=== PATIENT | male | born 1980 | race Caucasian/White ===

== ENCOUNTER 2022-03-26 14:59 | Emergency (ER) | payer SELFPAY ==
--- OUTSIDE RECORDS SUMMARY | 2022-03-26 15:05 | XMS REPORT | Continuity of Care Document ---
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 Description Test Time Test Comments Results Result Comments Source COMP. METABOLIC PANEL (09027) 2021-08-30 19:39:09 Test Item Value Reference Range Interpretation Comme nts NA (test code = 5813117587) 140 mmol/L 135-145 K (test code = 7439305455) 4.5 mmol/L 3.5-5.0 CL (test code = 5381183398) 101 mmol/L 98-108 CO2 TOTAL (test code = 7240949115) 29 mmol/L 23-31 AGAP (test code = 8533683423) 2-16 BUN (test code = 5353638351) 14 mg/dL 7-23 GLUCOSE (test code = 2860221203) 99 mg/dL 70-110 CREATININE (test code = 0.91 mg/dL 0.60-1.25 7617401931) TOTAL BILI (test code = 0.5 mg/dL 0.1-1.8 4843716269) CALCIUM (test code = 8024477438) 9.5 mg/dL 8.6-10.6 T PROTEIN (test code = 0460123630) 8.3 g/dL 6.3-8.2 H ALBUMIN (test code = 9426595793) 5.1 g/dL 3.5-5.0 H ALK PHOS (test code = 5225125710) 94 U/L 34-122 ALTv (test code = 1742-6) 38 U/L 5-50 AST(SGOT) (test code = 2590563162) 34 U/L 13-40 eGFR (test code = 6023931295) mL/min/1.73m2 MANUEL (test code = MANUEL) Association of Glomerular Filtration Rate (GFR) and Staging of Kidney Disease* + +-------- + ------+| GFR (mL/min/1.73 m2) ?| With Kidney Damage ?| ?Without Kidney Damage+ +-- + +| ?>90 ?| ?Stage one ?| ? Normal ?+ +------- + -------+| ?60-89 ?| ?Stage two ?| ? Decreased GFR ? + +-------- + ------+| ?30-59 ?| ?Stage three ?| ? Stage three ? + +-------- + ------+| ?15-29 ?| ?Stage four ? | ? Stage four ?+ +------- + -------+| ?<15 (or dialysis) ? ?| ?Stage five ? | ? Stage five ?+ +------- + -------+ *Each stage assumes the associated GFR level has been in effect for at least three months. ?Stages 1 to 5, with or without kidney disease, indicate chronic kidney disease. Notes: Determination of stages one and two (with eGFR >59mL/min/1.73 m2) requires estimation of kidney damage for at least three months as defined by structural or functional abnormalities of the kidney, manifested by either:Pathological abnormalities or Markers of kidney damage (including abnormalities in the composition of the blood or urine or abnormalities in imaging tests). Lab Interpretation (test code = Abnormal 05363-8) [facility]29 Test Item Value Reference Range Interpretation Comments LIPASE (test code = 4436647719) 101 U/L 0-220 Lab Interpretation (test code = Normal 08710-0) [facility] WITH [id number] 19:21:03 Test Item Value Reference Range Interpretation Comments WBC (test code = See_Comment [Automated 1142-2) message] The sy stem which generated this result transmitted reference range : 4.20 - 10.70 10*3/?L. The reference range was not used to interpret this result as normal/abnormal . RBC (test code = See_Comment [Automated 585-8) message] The sy stem which generated this result transmitted reference range : 4.26 - 5.52 10*6/?L. The reference range was not used to interpret this result as normal/abnormal . HGB (test code = 16.7 g/dL 12.2-16.4 H 718-7) HCT (test code = 51.1 % 38.4-49.3 H 4544-3) MCV (test code = 92.6 fL 81.7-95.6 787-2) MCH (test code = 30.3 pg 26.1-32.7 785-6) MCHC (test code = 32.7 g/dL 31.2-35.0 786-4) RDW-SD (test code = 44.3 fL 38.5-51.6 43108-7) RDW-CV (test code = 13.0 % 12.1-15.4 788-0) PLT (test code = See_Comment [Automated 777-3) message] The sy stem which generated this result transmitted reference range : 150 - 328 10*3/ ?L. The reference r timmy was not used to interpret this result as normal/abnormal . MPV (test code = 9.9 fL 9.8-13.0 28823-3) NRBC/100 WBC (test See_Comment [Automat ed code = 4460935395) message] The system which generated this result transmitted reference range : 0.0 - 10.0 /100 WBCs. The refer ence range was not u sed to interpret th is result as normal/abnormal . NRBC x10^3 (test code <0.01 See_Comment [Auto mated = 4331341087) message] The s ystem which generated this result transmitted reference range : 10*3/?L. The reference range was not used to interpret this result as normal/abnormal . GRAN MAT (NEUT) % 48.1 % (test code = 770-8) IMM GRAN % (test code 0.30 % = 0384221017) LYMPH % (test code = 36.1 % 736-9) MONO % (test code = 8.3 % 5905-5) EOS % (test code = 6.3 % 713-8) BASO % (test code = 0.9 % 706-2) GRAN MAT x10^3(ANC) 3.05 10*3/uL 1.99-6.95 (test code = 1606957832) IMM GRAN x10^3 (test <0.03 0.00-0.06 code = 6176711582) LYMPH x10^3 (test code 2.29 10*3/uL 1.09-3.23 = 731-0) MONO x10^3 (test code 0.53 10*3/uL 0.36-1.02 = 742-7) EOS x10^3 (test code = 0.40 10*3/uL 0.06-0.53 711-2) BASO x10^3 (test code 0.06 10*3/uL 0.01-0.09 = 704-7) Lab Interpretation Abnormal (test code = 90194-0) [facility] [id number] 06:51:45 Test Item Value Reference Range Interpretation Comments EBV Mononucleosis Screen (test code Negative Negative = 3853185853) Lab Interpretation (test code = Normal 64418-4) [facility] ([id number])2021-07-31 03:20:24 Test Item Value Reference Range Interpretation Comments NA (test code = 137 mmol/L 135-145 6500183785) K (test code = 4.1 mmol/L 3.5-5.0 5395536533) CL (test code = 102 mmol/L 98-108 6286758222) CO2 TOTAL (test code = 24 mmol/L 23-31 3401013539) AGAP (test code = 2-16 3637700849) BUN (test code = 13 mg/dL 7-23 8091905278) GLUCOSE (test code = 116 mg/dL 70-110 H 7987512178) CREATININE (test code = 0.77 mg/dL 0.60-1.25 0451458376) TOTAL BILI (test code = 0.5 mg/dL 0.1-1.4 1463481568) CALCIUM (test code = 8.9 mg/dL 8.6-10.6 6823083456) T PROTEIN (test code = 7.5 g/dL 6.3-8.2 5081719977) ALBUMIN (test code = 4.3 g/dL 3.5-5.0 0305560135) ALK PHOS (test code = 94 U/L 34-122 5112978598) ALTv (test code = 48 U/L 5-50 1742-6) AST(SGOT) (test code = 38 U/L 13-40 4926229016) eGFR (test code = mL/min/1.73m2 4847582157) MANUEL (test code = MANUEL) Association of Glomerular Filtration Rate (GFR) and Staging of Kidney Disease* + --+ --+ ------+| GFR (mL/min/1.73 m2) ?| With Kidney Damage ?| ?Without Kidney Damage+ --------+ --------+ +| ?>90 ?| ?Stage one ?| ? Normal ?+ ---+ ---+ -------+| ?60-89 ?| ?Stage two ?| ? Decreased GFR ? + --+ --+ ------+| ?30-59 ?| ?Stage three ?| ? Stage three ? + --+ --+ ------+| ?15-29 ?| ?Stage four ? | ? Stage four ?+ ---+ ---+ -------+| ?<15 (or dialysis) ? ?| ?Stage five ? | ? Stage five ?+ ---+ ---+ -------+ *Each stage assumes the associated GFR level has been in effect for at least three months. ?Stages 1 to 5, with or without kidney disease, indicate chronic kidney disease. Notes: Determination of stages one and two (with eGFR >59mL/min/1.73 m2) requires estimation of kidney damage for at least three months as defined by structural or functional abnormalities of the kidney, manifested by either:Pathological abnormalities or Markers of kidney damage (including abnormalities in the composition of the blood or urine or abnormalities in imaging tests). Lab Interpretation Abnormal (test code = 25633-6) [facility] WITH [id number] 03:08:02 Test Item Value Reference Range Interpretation Comments WBC (test code = See_Comment [Automated 7492-2) message] The sy stem which generated this result transmitted reference range : 4.20 - 10.70 10*3/?L. The reference range was not used to interpret this result as normal/abnormal . RBC (test code = See_Comment [Automated 843-8) message] The sy stem which generated this result transmitted reference range : 4.26 - 5.52 10*6/?L. The reference range was not used to interpret this result as normal/abnormal . HGB (test code = 14.5 g/dL 12.2-16.4 718-7) HCT (test code = 42.7 % 38.4-49.3 4544-3) MCV (test code = 90.3 fL 81.7-95.6 787-2) MCH (test code = 30.7 pg 26.1-32.7 785-6) MCHC (test code = 34.0 g/dL 31.2-35.0 786-4) RDW-SD (test code = 42.2 fL 38.5-51.6 89521-5) RDW-CV (test code = 12.6 % 12.1-15.4 788-0) PLT (test code = See_Comment [Automated 777-3) message] The sy stem which generated this result transmitted reference range : 150 - 328 10*3/ ?L. The reference r timmy was not used to interpret this result as normal/abnormal . MPV (test code = 10.0 fL 9.8-13.0 39225-8) NRBC/100 WBC (test See_Comment [Automat ed code = 3881659964) message] The system which generated this result transmitted reference range : 0.0 - 10.0 /100 WBCs. The refer ence range was not u sed to interpret th is result as normal/abnormal . NRBC x10^3 (test code <0.01 See_Comment [Auto mated = 3716083243) message] The s ystem which generated this result transmitted reference range : 10*3/?L. The reference range was not used to interpret this result as normal/abnormal . GRAN MAT (NEUT) % 69.4 % (test code = 770-8) IMM GRAN % (test code 0.40 % = 2965368626) LYMPH % (test code = 17.6 % 736-9) MONO % (test code = 7.1 % 5905-5) EOS % (test code = 5.0 % 713-8) BASO % (test code = 0.5 % 706-2) GRAN MAT x10^3(ANC) 7.36 10*3/uL 1.99-6.95 H (test code = 1363593570) IMM GRAN x10^3 (test 0.04 10*3/uL 0.00-0.06 code = 6888994004) LYMPH x10^3 (test code 1.87 10*3/uL 1.09-3.23 = 731-0) MONO x10^3 (test code 0.75 10*3/uL 0.36-1.02 = 742-7) EOS x10^3 (test code = 0.53 10*3/uL 0.06-0.53 711-2) BASO x10^3 (test code 0.05 10*3/uL 0.01-0.09 = 704-7) Lab Interpretation Abnormal (test code = 16349-0) [facility] [id number] 13:50:47NORMAL CULTURE, URINE SPECIMEN NUMBER: [id number] SPECIMEN COMMENT: URINE SOURCE: URINE REPORT STATUS: FINAL FINAL REPORT: 07/06/2021 <10,000 CFU/ML UROGENITAL DAKSHA PRESENT NO COMMON PATHOGENSCT/NG, NAAT, [id number] 19:10:54 Test Item Value Reference Range Interpretation Comments GONORRHEA, NAAT NEGATIVE NEGATIVE IMPORTA NT NOTICE: SEE (test code = [place] [address]) [email or web address] Note: Assay methodology is nucleic acid amplification b y sales data analyst m ediated amplification ( TMA) utilizing the A ptima Combo 2 Assay. CHLAMYDIA, NAAT NEGATIVE NEGATIVE IMPORTA NT NOTICE: SEE (test code = [place] [address]) [email or web address] Note: Assay methodology is nucleic acid amplification b y sales data analyst m ediated amplification ( TMA) utilizing the A ptima Combo 2 Assay. UNLESS OTHERWISE INDICATED, ALL TESTING PERFORMED [facility] [address] [place] [id number] [place] [address] DIRECTOR: LIZA RICHEY M.D. CLIA NUMBER [id number] CAP ACCREDITATION N O. [id number]"
--- NOTE | 2022-03-26 16:37 | RAD REPORT ---
EXAM DESCRIPTION: CT - Stone Protocol - 03/26/2022 4:14 pm CLINICAL HISTORY: Abdominal pain. Left flank pain COMPARISON: None. TECHNIQUE: Computed axial tomography of the abdomen pelvis was obtained without oral or IV contrast. Lack of IV and oral contrast limits evaluation of solid organs, appendix, bowel, and vessels. Savage l reformatted images were obtained and reviewed. All CT scans are performed using dose optimization technique as appropriate and may include automated exposure control or mA/KV adjustment according to patient size. FINDINGS: Bilateral, multiple small renal calculi. No hydronephrosis. A ureteral calculus is not see n. No bladder calculus. The liver, spleen, pancreas and adrenals appear grossly normal There is no evidence of diverticulitis. The appendix appears normal IMPRESSION: Small bilateral nonobstructing renal calculi
[2022-03-26] MEDS ORDERED: ONDANSETRON 4 MG/2 ML VIAL ONE (17:05)
[2022-03-26] MEDS ORDERED: MORPHINE 4 MG/ML SYR ONE (17:05)
[2022-03-26] MEDS ORDERED: NA CHLORIDE 0.9% 1,000 ML ONE (17:05)
[2022-03-26 17:26] LABS: Urine Blood Trace-intact (Negative); Urine Glucose Negative (Negative); Urine Protein Negative (Negative); Urine Specific Gravity >=1.030 (1.005-1.030); Urine pH 5.5 (5.0-7.0)
[2022-03-26 17:35] LABS: Absolute Lymphocytes (CBC) 1.5 K/uL (0.7-4.9); Hematocrit 48.9 % (39.6-49.0); Lymphocytes % 25.3 % (15.3-44.8); MPV 8.5 fL (7.6-11.3); RBC Red Blood Cell Count 5.43 M/uL (4.33-5.43)
[2022-03-26 17:41] LABS: Urine Mucus 2+ /HPF (None Seen); Urine RBC <5 /HPF (None Seen)
[2022-03-26 17:51] LABS: Bilirubin Total 0.2 mg/dL (0.2-1.0); Potassium 3.8 mmol/L (3.5-5.1); Protein, Total 8.6 g/dL (6.4-8.2)
--- NOTE | 2022-03-26 18:33 | ER ---
Nurse's Notes [facility] Name: Tim Burgos Age: 41 yrs Sex: Male : 1980 Arrival Date: 03/26/2022 Time: 15:03 Bed 4 Private MD: Diagnosis: Low back pain;Calculus of kidney Presentation: 03/26 15:27 Chief complaint: Patient states: L flank pain with N/V/D since Sunday. Believes it ll1 another kidney stone. Fever 101.9 at home Sunday. Coronavirus screen: Vaccine status:. Coronavirus screen: Vaccine status: Patient reports being unvaccinated. Client denies travel out of the [place] in the last 14 days. At this time, the client does not indicate any symptoms associated with coronavirus-19. Ebola Screen: Patient denies travel to an Ebola-affected area in the 21 days before illness onset. Initial Sepsis Screen: Does the patient meet any 2 criteria? No. Patient's initial sepsis screen is negative. Does the patient have a suspected source of infection? Yes: Dysuria/Frequency/Urgency/UTI. Risk Assessment: Do you want to hurt yourself or someone else? Patient reports no desire to harm self or others. Onset of symptoms was March 24, 2022. 15:27 Method Of Arrival: Ambulatory ll1 15:27 Acuity: CONNOR 3 ll1 Triage Assessment: 15:30 General: Appears uncomfortable, Behavior is cooperative, appropriate for age. Pain: ll1 Complains of pain in L flank Pain currently is 10 out of 10 on a pain scale. Quality of pain is described as aching. : Reports burning with urination, pain in left flank(s). Historical: - Allergies: 15:29 Tramadol HCl; ll1 - PMHx: 15:29 kidney stones; ll1 - PSHx: 15:29 Kidney stent and removal; ll1 - Immunization history:: Client reports having NOT received the Covid vaccine. - Social history:: Smoking status: Patient denies any tobacco usage or history of. Screenin:36 Abuse screen: Denies threats or abuse. Denies injuries from another. Nutritional jl7 screening: No deficits noted. Tuberculosis screening: No symptoms or risk factors identified. Fall Risk IV access (20 points). Total Caro Fall Scale indicates No Risk (0-24 pts). Assessment: 17:10 General: Appears in no apparent distress. uncomfortable, Behavior is calm, cooperative, jl7 appropriate for age. Pain: Complains of pain in right flank Pain currently is 8 out of 10 on a pain scale. Pain began 2-3 days ago. Neuro: Level of Consciousness is awake, alert, obeys commands, Oriented to person, place, time, situation. Cardiovascular: Patient's skin is warm and dry. Respiratory: Airway is patent Respiratory effort is even, unlabored, Respiratory pattern is regular, symmetrical. : Reports pain in left flank(s). Derm: Skin is pink, warm \T\ dry. 18:00 Reassessment: Patient appears in no apparent distress at this time. Patient and/or jl7 family updated on plan of care and expected duration. Pain level reassessed. Patient is alert, oriented x 3, equal unlabored respirations, skin warm/dry/pink. Patient states feeling better. Patient states symptoms have improved. Vital Signs: 15:27 BP 130 / 98; Pulse 100; Resp 18; Temp 97.7; Pulse Ox 99% ; Weight 72.57 kg; Height 5 ll1 ft. 2 in. (157.48 cm); Pain 8/10; 17:36 BP 144 / 106; Pulse 80; Resp 15; Pulse Ox 99% ; jl7 18:45 BP 149 / 104; Pulse 85; Resp 15; Pulse Ox 100% ; Pain 4/10; jl7 15:27 Body Mass Index 29.26 (72.57 kg, 157.48 cm) ll1 ED Course: 15:03 Patient arrived in ED. am2 15:04 Amadeo Machado PA is PHCP. cp 15:04 Macario Dove MD is Attending Physician. cp 15:29 Triage completed. ll1 15:29 Arm band placed on. ll1 16:15 CT Stone Protocol In Process Unspecified. EDMS 17:01 Tami Salas RN is Primary Nurse. jl7 17:25 Initial lab(s) drawn, by nj, sent to lab. Urine collected: clean catch specimen. jl7 Inserted saline lock: 20 gauge in left antecubital area, using aseptic technique. Blood collected. 17:36 Patient has correct armband on for positive identification. Placed in gown. Bed in low jl7 position. Call light in reach. Side rails up X 1. Pulse ox on. NIBP on. 18:59 No provider procedures requiring assistance completed. IV discontinued, intact, jl7 bleeding controlled, No redness/swelling at site. Pressure dressing applied. Administered Medications: 17:25 Drug: NS 0.9% 1000 ml Route: IV; Rate: 1 bolus; Site: left antecubital; jl7 18:30 Follow up: Response: No adverse reaction; IV Status: Completed infusion; IV Intake: jl7 1000ml 17:25 Drug: Zofran (Ondansetron) 4 mg Route: IVP; Site: left antecubital; jl7 18:00 Follow up: Response: No adverse reaction jl7 17:25 Drug: morphine 4 mg Route: IVP; Infused Over: 4 mins; Site: left antecubital; jl7 17:50 Follow up: Response: No adverse reaction; Pain is decreased jl7 18:40 Drug: Lidoderm Patch 5 % (700 mg/patch) 1 patches Route: Topical; Site: affected area; jl7 18:57 Follow up: Response: Medication administered at discharge. jl7 18:40 Drug: Decadron - Dexamethasone 10 mg Route: IVP; Site: left antecubital; jl7 18:57 Follow up: Response: Medication administered at discharge. jl7 18:45 Drug: Ketorolac 30 mg Route: IVP; Site: left antecubital; jl7 18:57 Follow up: Response: Medication administered at discharge. jl7 Medication: 17:36 VIS not applicable for this client. jl7 Intake: 18:30 IV: 1000ml; Total: 1000ml. jl7 Outcome: 18:32 Discharge ordered by . cp 18:59 Discharged to home ambulatory. jl7 18:59 Condition: stable 18:59 Discharge instructions given to patient, Instructed on discharge instructions, follow up and referral plans. medication usage, Demonstrated understanding of instructions, follow-up care, medications, Prescriptions given X 2. 19:00 Patient left the ED. jl7 Signatures: Dispatcher [employer] EDMS Amadeo Machado PA PA cp Leal, Jahala, RN RN jl7 Xochilt White am2 Wanda Del Valle RN RN ll1 Corrections: (The following items were deleted from the chart) 18:57 17:10 Pain: Complains of pain in left flank Pain currently is 8 out of 10 on a pain jl7 scale. Pain began 2-3 days ago. jl7
--- NOTE | 2022-03-26 18:33 | EDPHYS ---
Physician Documentation [facility] Name: Tim Burgos Age: 41 yrs Sex: Male : 1980 Arrival Date: 03/26/2022 Time: 15:03 Bed 4 Private MD: ED Physician Macario Dove HPI: 03/26 15:49 This 41 yrs old Male presents to ER via Ambulatory with complaints of Flank Pain. cp 15:49 The patient complains of pain in the right flank. Onset: The symptoms/episode cp began/occurred 2 day(s) ago. 15:49 Associated signs and symptoms: Pertinent negatives: diarrhea, dysuria, fever, cp hematuria, pain radiating to the lower extremities, vomiting. 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 Historical: - Allergies: 15:29 Tramadol HCl; ll1 - PMHx: 15:29 kidney stones; ll1 - PSHx: 15:29 Kidney stent and removal; ll1 - Immunization history:: Client reports having NOT received the Covid vaccine. - Social history:: Smoking status: Patient denies any tobacco usage or history of. ROS: 15:55 Constitutional: Negative for body aches, chills, fever, poor PO intake. cp 15:55 Back: Positive for flank pain, on the right, of the right low back. cp 15:55 : Negative for urinary symptoms, difficulty urinating, bladder incontinence, testicular pain Exam: 16:00 Constitutional: The patient appears in no acute distress, alert, awake, cp non-diaphoretic, non-toxic, well developed, well nourished, uncomfortable. 16:00 Head/Face: Normocephalic, atraumatic. cp 16:00 Eyes: Periorbital structures: appear normal, Conjunctiva: normal, no exudate, no injection, Sclera: no appreciated abnormality, Lids and lashes: appear normal, bilaterally. 16:00 ENT: External ear(s): are unremarkable, Nose: is normal, Mouth: Lips: moist, Oral mucosa: moist, Posterior pharynx: Airway: no evidence of obstruction, patent. 16:00 Chest/axilla: Inspection: normal, Palpation: is normal, no crepitus, no tenderness. 16:00 Cardiovascular: Rate: tachycardic, Rhythm: regular, Edema: is not appreciated. 16:00 Respiratory: the patient does not display signs of respiratory distress, Respirations: normal, no use of accessory muscles, no retractions, labored breathing, is not present, Breath sounds: are clear throughout, no decreased breath sounds, no stridor, no wheezing. 16:00 Abdomen/GI: Inspection: obese Bowel sounds: active, all quadrants, Palpation: soft, in all quadrants, moderate abdominal tenderness, in the right lateral lower abdomen, rebound tenderness, is not appreciated, involuntary guarding, is not appreciated. 16:00 Back: pain, that is moderate, of the right low back, ROM is painful, with all movement. 16:00 Skin: no rash present. 16:00 Neuro: Orientation: to person, place \T\ time. Mentation: is normal, Motor: moves all fours, strength is normal, Gait: is steady. Vital Signs: 15:27 BP 130 / 98; Pulse 100; Resp 18; Temp 97.7; Pulse Ox 99% ; Weight 72.57 kg; Height 5 ll1 ft. 2 in. (157.48 cm); Pain 8/10; 17:36 BP 144 / 106; Pulse 80; Resp 15; Pulse Ox 99% ; jl7 18:45 BP 149 / 104; Pulse 85; Resp 15; Pulse Ox 100% ; Pain 4/10; jl7 15:27 Body Mass Index 29.26 (72.57 kg, 157.48 cm) ll1 MDM: 16:00 Differential diagnosis: nephrolithiasis, pyelonephritis, UTI, colitis, appendicitis. cp 16:12 Patient medically screened. cp 18:32 Data reviewed: vital signs, nurses notes, lab test result(s), radiologic studies, CT cp scan. 18:32 Counseling: I had a detailed discussion with the patient and/or guardian regarding: the cp historical points, exam findings, and any diagnostic results supporting the discharge/admit diagnosis, lab results, radiology results, to return to the emergency department if symptoms worsen or persist or if there are any questions or concerns that arise at home. Response to treatment: pain improved. will discharge to home and treat for musculoskeletal pain. 03/26 15:37 Order name: Urine Microscopic Only; Complete Time: 17:57 cp 03/26 15:51 Order name: CBC with Diff; Complete Time: 17:57 cp 03/26 17:57 Interpretation: Reviewed. cp 03/26 15:51 Order name: CMP; Complete Time: 17:57 cp 03/26 17:57 Interpretation: Normal except: GFR 87. cp 03/26 15:51 Order name: Lipase; Complete Time: 17:57 cp 03/26 15:51 Order name: CT Stone Protocol; Complete Time: 16:41 cp 03/26 17:02 Interpretation: Report reviewed. cp 03/26 17:26 Order name: Urine Dipstick-Ancillary; Complete Time: 17:57 EDMS 03/26 17:57 Interpretation: Normal except: UBLD Trace-intact. cp 03/26 15:37 Order name: Urine Dipstick-Ancillary (obtain specimen); Complete Time: 17:25 cp 03/26 15:51 Order name: IV Saline Lock; Complete Time: 17:25 cp 03/26 15:51 Order name: Labs collected and sent; Complete Time: 17:25 cp Administered Medications: 17:25 Drug: NS 0.9% 1000 ml Route: IV; Rate: 1 bolus; Site: left antecubital; jl7 18:30 Follow up: Response: No adverse reaction; IV Status: Completed infusion; IV Intake: jl7 1000ml 17:25 Drug: Zofran (Ondansetron) 4 mg Route: IVP; Site: left antecubital; jl7 18:00 Follow up: Response: No adverse reaction jl7 17:25 Drug: morphine 4 mg Route: IVP; Infused Over: 4 mins; Site: left antecubital; jl7 17:50 Follow up: Response: No adverse reaction; Pain is decreased jl7 18:40 Drug: Lidoderm Patch 5 % (700 mg/patch) 1 patches Route: Topical; Site: affected area; jl7 18:57 Follow up: Response: Medication administered at discharge. jl7 18:40 Drug: Decadron - Dexamethasone 10 mg Route: IVP; Site: left antecubital; jl7 18:57 Follow up: Response: Medication administered at discharge. jl7 18:45 Drug: Ketorolac 30 mg Route: IVP; Site: left antecubital; jl7 18:57 Follow up: Response: Medication administered at discharge. 7 Disposition: 03/27 14:14 Co-signature as Attending Physician, Macraio Dove MD I agree with the assessment and kdr plan of care. Disposition Summary: 03/26/22 18:32 Discharge Ordered Location: Home cp Problem: new cp Symptoms: have improved cp Condition: Stable cp Diagnosis - Low back pain cp - Calculus of kidney cp Followup: cp - With: Private Physician - When: 2 - 3 days - Reason: Recheck today's complaints Discharge Instructions: - Discharge Summary Sheet cp - Acute Back Pain, Adult cp - Kidney Stones cp - Heat Therapy cp - Back Exercises cp Forms: - Medication Reconciliation Form cp - Thank You Letter cp - Antibiotic Education cp - Prescription Opioid Use cp Prescriptions: - Cyclobenzaprine 10 mg Oral Tablet - take 1 tablet by ORAL route every 8 hours As needed; 20 tablet; Refills: 0, cp Product Selection Permitted - Diclofenac Sodium 75 mg Oral Tablet Sustained Release - take 1 tablet by ORAL route 2 times per day; 30 tablet; Refills: 0, Product cp Selection Permitted Signatures: Dispatcher [employer] EDOK Macario Dove MD MD [facility] Amadeo Machado PA PA cp Tami Salas, RN RN jl7 Wanda Del Valle RN RN ll1
[2022-03-26] MEDS ORDERED: KETOROLAC 30 MG/ML INJ ONE (18:43)
[2022-03-26] MEDS ORDERED: dexAMETHasone 10 MG/ML VIAL ONE (18:43)
[2022-03-26] MEDS ORDERED: LIDOCAINE 4% PATCH ONE (18:43)
[2022-03-26 19:21] VITALS: TEMP 97.7
[2022-03-26 19:33] VITALS: BP 149/104; O2SAT 100
== END 2022-03-26 19:00 | disposition home or self-care (01) ==
LOC: ER 14:59
DX: N20.0 Calculus of kidney (principal); Z87.442 Personal history of urinary calculi; Z88.5 Allergy status to narcotic agent
CPT/HCPCS: 36415; 74176; 76377; 80053; 81003; 81015; 83690; 85025; 96361; 96374; 96375; 99284; J1100; J2001; J2405; J7030

== ENCOUNTER 2022-04-27 17:46 | Emergency (ER) | payer SELFPAY ==
--- OUTSIDE RECORDS SUMMARY | 2022-04-27 17:50 | XMS REPORT | Continuity of Care Document ---
:1980 Author Organization [facility] [place] [facility] t Address [address] [place] [place] [address] Care Team Providers Name Role Phone VERONICA KUMARY Primary Care Physician Unavailable ADAM Attending Clinician Unavailable Rod FELICIANO Attending Clinician Unavailable Rod Reich Attending Clinician Doctor Unassigned, [place] Attending Clinician Unavailable JAYSHREE VILLATORO Attending Clinician [...] rib of rib 00:00: g of this [place] 00 note Medical might be Branch different from the original. ICD10 Diagnosis [facility] Utility Allergies, Adverse Reactions, Alerts Allergy Allergy Status Severity Reaction(s) Onset Inactive Treating Comm ents Source Name Type Date Date Clinician TRAMADOL DRUG Active Low N/V Univers INGREDI 7-16 ity of 00:00: [place] [address] Medical [place] Tramadol Drug Active Nausea Univers Intolera and/or 16 ity of nce Vomiting 00:00: [address] Branch NO KNOWN Drug Active Univers ALLERGIE Class ity of S [facility] Social History Social Habit Start Date Stop Date Quantity Comments Source Exposure to 2021-11-05 2021-11-15 Not sure [facility] SARS-CoV-2 (event) 00:00:00 00:50:00 [facility] Branch Sex Assigned At [birth year] [facility] 00:00:00 00:00:00 Medical [place] Smoking Status Start Date Stop Date Source Unknown if ever smoked [facility] Medications Ordered Filled Start Stop Current Ordering Indication Dosage Frequency Signature Comments Components Source Medication Medication Date Date Medication? Clinician (SIG) Name Name acetaminoph 2021- No 1000mg 1,000 mg, Univers en 11-15 Oral, ity of (TYLENOL) 07:00: 05:59 ONCE, 1 [place] :[place] dose, On Medical 1,000 mg Tue Branch 11/15/21 at 0200, SANDEEP naproxen Yes [id number] 500mg Take 1 Univers (NAPROSYN) 11-15 [id number] tablet by it y of 500 mg 00:00: mouth 2 [place] tablet 00 (two) Medical times [place] daily with meals. ondansetron 2021- No 4mg 4 mg, Univ ers (ZOFRAN-ODT -05 01-12 Oral, ity of ) 19:15: 18:26 ONCE, 1 [place] disintegrat 00 :00 dose, On Medi cade ing tablet [facility] 4 mg 10/06/21 at 1415, Routine ondansetron Yes [id number] 4mg Take 1 Univers 4 mg 5-12 tablet by ity of disintegrat 00:00: mouth [place] ing tablet 00 every 8 Medica l (eight) Branch hours as needed for Nausea and Vomiting (N/V). ondansetron Yes [id number] 4mg Take 1 Univers 4 mg 5-12 tablet by ity of disintegrat 00:00: mouth [place] ing tablet 00 every 8 Medica l (eight) Branch hours as needed for Nausea and Vomiting (N/V). ondansetron Yes [id number] 4mg Take 1 Univers 4 mg 5-12 tablet by ity of disintegrat 00:00: mouth [place] ing tablet 00 every 8 Medica l (eight) Branch hours as needed for Nausea and Vomiting (N/V). methocarbam 2021- No 500mg 500 mg, U nivers oL 08-30- Oral, ity of (ROBAXIN) 21:45: 20:50 ONCE, [...] Restricted medication : RADHA GOMEZ methocarbam Yes [id number] 500mg Take 1 Univers oL 500 mg -05 tablet by ity o f tablet 00:00: mouth 4 [place] 00 (four) Medical times Branch daily as needed for Pain (scale 4-6). naproxen 2021-0 Yes [id number] 500mg Take 1 U nivers (NAPROSYN) 4-05 tablet by ity of 500 mg 00:00: mouth 2 [place] tablet 00 (two) Medical times Branch daily with meals. methocarbam 2021-0 Yes [id number] 500mg Take 1 Univers oL 500 mg 4-05 tablet by ity o f tablet 00:00: mouth 4 [place] (four) Medical times Branch daily as needed for Pain (scale 4-6). naproxen 2021-0 Yes [id number] 500mg Take 1 U nivers (NAPROSYN) 4-05 tablet by ity of 500 mg 00:00: mouth 2 [place] tablet 00 (two) Medical times Branch daily with meals. methocarbam 2021-0 Yes [id number] 500mg Take 1 Univers oL 500 mg 4-05 tablet by ity o f tablet 00:00: mouth 4 (four) Medical times Branch daily as needed for Pain (scale 4-6). naproxen 2021-0 Yes [id number] 500mg Take 1 U nivers (NAPROSYN) 4-05 tablet by ity of 500 mg 00:00: mouth 2 [place] tablet 00 (two) Medical times Branch daily with meals. methocarbam 2021-0 Yes [id number] 500mg Take 1 Univers oL 500 mg 4-05 tablet by ity o f tablet 00:00: mouth 4 (four) Medical times Branch daily as needed for Pain (scale 4-6). naproxen 2021-0 Yes [id number] 500mg Take 1 U nivers (NAPROSYN) 4-05 [...] No 10mL 10 mL, Uni vers ifenesin 07-31 Oral, ity of (ROBITUSSIN 06:45: 05:46 [place] 1 [place] 10-100 00 :00 dose, On Medic al mg/5 mL 07/31/21 Branch oral at 0045, solution 10 SANDEEP mL cefTRIAXone 2021- No 1000mg 1,000 mg, Univers (ROCEPHIN) 07-31 IV ity of 1,000 mg in 04:45: 05:20 Piggyback, [place] NaCl 0.9% 00 :00 ONCE, 1 Medical (NS) 50 mL dose, On [facility] h MINI-BAG 07/30/21 at 2245, Administer over 30 Minutes, 50 mL
R paul for Anti-Infec tive: Documented Infection< br>Documen annie Infection Site: Respirator y
Du ration of Therapy: 7 days NaCl 0.9% 2021- No 1000mL at 999 [...] ity of PERLES) 03:30: 02:36 ONCE, 1 [place] capsule 100 00 :00 dose, On Medi cade mg 07/30/21 Branch at 2130, Routine maalox:diph 2021- No 15mL 15 mL, Uni vers enhydrAMINE 07-31 Oral, ity of :lidocaine 03:30: 02:49 ONCE, 1 [place] as 2 % viscous 00 :00 dose, On Medi cade 1:1:1 07/30/21 Branch (FIRST-MOUT at 2130, [facility]) Routine oral suspension 15 mL albuterol Yes [id number] 2{puff} Inhale 2 Univers 90 3-06 Puffs ity of mcg/actuati 00:00: every 6 [place] as on inhaler 00 (six) Medical hours as Branch needed for Wheezing or Shortness of Breath. albuterol Yes [id number] 2{puff} Inhale 2 Univers 90 3-06 Puffs ity of mcg/actuati 00:00: every 6 [place] as on inhaler 00 (six) Medical hours as Branch needed for Wheezing or Shortness of Breath. albuterol Yes [id number] 2{puff} Inhale 2 Univers 90 3-06 Puffs ity of mcg/actuati 00:00: every 6 [place] as on inhaler 00 (six) Medical hours as Branch needed for Wheezing or Shortness of Breath. albuterol Yes [id number] 2{puff} Inhale 2 Univers 90 3-06 Puffs ity of mcg/actuati 00:00: every 6 [place] as on inhaler 00 (six) Medical hours as Branch needed for Wheezing or Shortness of Breath. albuterol Yes [id number] 2{puff} Inhale 2 Univers 90 3-06 Puffs ity of mcg/actuati 00:00: every 6 [place] as on inhaler 00 (six) Medical hours as Branch needed for Wheezing or Shortness of Breath. azithromyci 2021- No [id number] 500mg Take 1 Univers n 500 mg [...] Mon Branch 07/11/21 at 2245, SANDEEP benzonatate 2-0 Yes [id number] 100mg Take 1 Univers 100 mg 2-14 capsule by ity of capsule 00:00: mouth 3 (three) Medical times Branch daily as needed for Cough. bromphenira 2022-0 Yes [id number] 5mL Take 5 mL Univers mine-pseudo 2-14 by mouth 4 it y of ephedrine-D 00:00: (four) [place] (BROMFED times Medical DM) 2-30-10 daily as Bran ch mg/5 mL needed for syrup Cough. benzonatate 2022-0 Yes [id number] 100mg Take 1 Univers 100 mg 2-14 capsule by ity of capsule 00:00: mouth 3 (three) Medical times [place] daily as needed for Cough. bromphenira 2022-0 Yes [id number] 5mL Take 5 mL Univers mine-pseudo 2-14 by mouth 4 it y of ephedrine-D 00:00: (four) [place] (BROMFED times Medical ) 2-30-10 daily as Bran ch mg/5 mL needed for syrup Cough. benzonatate 2022-0 Yes [id number] 100mg Take 1 Univers 100 mg 2-14 capsule by ity of capsule 00:00: mouth 3 (three) Medical times [place] daily as needed for Cough. bromphenira 2-0 Yes [id number] 5mL Take 5 mL Univers mine-pseudo 2-14 by mouth 4 it y of ephedrine-D 00:00: (four) [place] (BROMFED times Medical DM) 2-30-10 daily as Bran ch mg/5 mL needed for syrup Cough. benzonatate 2022-0 Yes [id number] 100mg Take 1 Univers 100 mg 2-14 capsule by ity of capsule 00:00: mouth 3 (three) Medical times Branch daily as needed for Cough. bromphenira 2022-0 Yes [id number] 5mL Take 5 mL Univers mine-pseudo 2-14 by mouth 4 it y of ephedrine-D 00:00: (four) [place] M (BROMFED 00 times Medical DM) 2-30-10 daily as Bran ch mg/5 mL needed for syrup Cough. benzonatate 2022-0 Yes [id number] 100mg Take 1 Univers 100 mg 2-14 capsule by ity of capsule 00:00: mouth 3 [place] 00 (three) Medical times Branch daily as needed for Cough. bromphenira 2021-0 Yes [id number] 5mL Take 5 mL Univers mine-pseudo 2-14 by mouth 4 it y of ephedrine-D 00:00: (four) [place] M (BROMFED 00 times Medical DM) 2-30-10 daily as Bran ch mg/5 mL needed for syrup Cough. benzonatate 2021-0 Yes [id number] 100mg Take 1 Univers 100 mg 2-14 capsule by ity of capsule 00:00: mouth 3 [place] 00 (three) Medical times Branch daily as needed for Cough. bromphenira 2021-0 Yes [id number] 5mL Take 5 mL Univers mine-pseudo 2-14 by mouth 4 it y of ephedrine-D 00:00: (four) [place] M (BROMFED 00 times Medical DM) 2-30-10 daily as Bran ch mg/5 mL needed for syrup Cough. predniSONE 2021-2021- No [id number] 20mg Take 1 Univers 20 mg 2-14 02-19 tablet by ity of tablet 00:00: 05:59 mouth 2 [place] 00 :00 (two) Medical times Branch daily for 4 days. proMETHazin 2020-0 Yes [id number] 25mg Take 1 Univers e 25 mg 7-16 tablet by ity of tablet 00:00: mouth [place] 00 every 6 Medical (six) Branch hours as needed for Nausea and Vomiting (N/V). proMETHazin 2020-0 Yes [id number] 25mg Take 1 Univers e 25 mg 7-16 tablet by ity of tablet 00:00: mouth [place] 00 every 6 Medical (six) Branch hours as needed for Nausea and Vomiting (N/V). proMETHazin 2020-0 Yes [id number] 25mg Take 1 Univers e 25 mg 7-16 tablet by ity of tablet 00:00: mouth [place] 00 every 6 Medical (six) Branch hours as needed for Nausea and Vomiting (N/V). proMETHazin 2020-0 Yes [id number] 25mg Take 1 Univers e 25 mg 7-16 tablet by ity of tablet 00:00: mouth [place] 00 every 6 Medical (six) Branch hours as needed for Nausea and Vomiting (N/V). proMETHazin 2020-0 Yes [id number] 25mg Take 1 Univers e 25 mg 7-16 tablet by ity of tablet 00:00: mouth [place] 00 every 6 Medical (six) Branch hours as needed for Nausea and Vomiting (N/V). proMETHazin 2020-0 Yes [id number] 25mg Take 1 Univers e 25 mg 7-16 tablet by ity of tablet 00:00: mouth [place] 00 every 6 Medical (six) Branch hours as needed for Nausea and Vomiting (N/V). proMETHazin 2020-0 Yes [id number] 25mg Take 1 Univers e 25 mg [...] o f TAB 00:00: pain/infla [place] 00 [facility] Branch BACITRACIN 2005-0 Yes Topical Univ ers [...] o f TAB 00:00: pain/infla [place] 00 [facility] Branch BACITRACIN 2005-0 Yes Topical Univ ers 500 UNIT/G 2-04 QID ity of TOPICAL 00:00: [place] OINT 00 Medical Branch BACITRACIN 2006-0 Yes Topical Univ ers 500 UNIT/G 2-04 QID ity of TOPICAL 00:00: [place] OINT Medical Branch HYDROCODONE 2005-0 Yes 2 Tab [...] TOPICAL 00:00: [place] OINT Medical Branch HYDROCODONE 2005-0 Yes 2 Tab [...] TOPICAL 00:00: [place] OINT Medical Branch HYDROCODONE 2005-0 Yes 2 Tab [...] o f TAB 00:00: pain/infla [place] 00 [facility] Branch BACITRACIN 0 Yes Topical Univ [...] o f TAB 00:00: pain/infla [place] 00 [facility] Vital Signs Vital Name Observation Time Observation Value Comments Source Systolic blood 2021-11-15 05:52:00 118 mm[Hg] Univer sity of pressure [facility] Diastolic blood 2021-11-15 05:52:00 92 mm[Hg] Unive rsity of [facility] Heart rate 2021-11-15 05:52:00 97 /min [facility] Body temperature 2021-11-15 05:52:00 37.39 Johanna [facility] ersity [facility] Respiratory rate 2021-11-15 05:52:00 18 /min [facility] ersity [facility] Body height 2021-11-15 05:52:00 154.9 cm [facility] Body weight 2021-11-15 05:52:00 68.493 kg [facility] BMI 2021-11-15 05:52:00 28.53 kg/m2 [facility] Oxygen saturation in 2021-11-15 05:52:00 99 /min [facility] Arterial blood by [facility] Pulse oximetry Branch Systolic blood 2021-10-06 17:09:00 132 mm[Hg] Univer sity of pressure [place] [facility] Diastolic blood 2021-10-06 17:09:00 87 mm[Hg] Unive rsity of pressure [place] [facility] Heart rate 2021-10-06 17:09:00 104 /min Universi ty of [place] [facility] Body temperature 2021-10-06 17:09:00 37.44 Johanna Univ ersity of [place] [facility] Respiratory rate 2021-10-06 17:09:00 18 /min Univ ersity of [place] [facility] Body weight 2021-10-06 17:09:00 62.143 kg Universi ty of [place] [facility] BMI 2021-10-06 17:09:00 25.06 kg/m2 Universi ty of [place] [facility] Oxygen saturation in 2021-10-06 17:09:00 98 /min University of Arterial blood by [facility] cade Pulse oximetry Branch Systolic blood 2021-08-30 20:52:00 135 mm[Hg] Univer sity of pressure [place] [facility] Diastolic blood 2021-08-30 20:52:00 95 mm[Hg] Unive rsity of pressure [place] [facility] Heart rate 2021-08-30 20:52:00 86 /min Universi ty of [place] [facility] Respiratory rate 2021-08-30 20:52:00 16 /min Univ ersity of [place] [facility] Oxygen saturation in 2021-08-30 20:52:00 100 /min University of Arterial blood by [place] [employer] cade Pulse oximetry Branch Body temperature 2021-08-30 17:20:00 36.72 Johanna Univ ersity of [place] [facility] Body height 2021-08-30 17:20:00 157.5 cm Universi ty of [place] [facility] Body weight 2021-08-30 17:20:00 71.215 kg Universi ty of [place] [facility] BMI 2021-08-30 17:20:00 28.72 kg/m2 Universi ty of [place] [facility] Systolic blood 2021-07-31 06:47:24 124 mm[Hg] Univer sity of pressure [place] [facility] Diastolic blood 2021-07-31 06:47:24 94 mm[Hg] Unive rsity of pressure [place] [facility] Heart rate 2021-07-31 06:47:24 108 /min Universi ty of [place] [facility] Body temperature 2021-07-31 06:47:24 37.61 Johanna [facility] ersity [facility] Respiratory rate 2021-07-31 06:47:24 17 /min Univ ersity of [facility] Oxygen saturation in 2021-07-31 06:47:24 99 /min University of Arterial blood by [facility] Pulse oximetry Branch Body height 2021-07-31 02:02:00 157.5 cm Universi ty [facility] Body weight 2021-07-31 02:02:00 69.854 kg Universi ty [facility] Medical [place] BMI 2021-07-31 02:02:00 28.17 kg/m2 Universi ty [facility] Systolic blood 2021-07-12 03:38:00 139 mm[Hg] Univer sity of pressure [facility] Diastolic blood 2021-07-12 03:38:00 85 mm[Hg] Unive rsity of [facility] Heart rate 2021-07-12 03:38:00 105 /min Universi ty [facility] Respiratory rate 2021-07-12 03:38:00 18 /min [facility] Oxygen saturation in 2021-07-12 03:38:00 98 /min University of Arterial blood by [facility] Pulse oximetry Branch Body temperature 2021-07-12 02:05:00 37 Johanna [facility] Body height 2021-07-12 02:05:00 157.5 cm Universi [facility] Body weight 2021-07-12 02:05:00 71.215 kg Universi [facility] BMI 2021-07-12 02:05:00 28.72 kg/m2 [facility] Procedures Procedure Date / Time Performing Clinician Source Performed XR HAND 3+ VW LEFT 2021-11-15 06:19:[address] [facility] CONSENT/REFUSAL FOR 2021-11-15 05:36:12 Doctor Unassigned, No Un [facility] [place] DIAGNOSIS AND TREATMENT Name Medical Branch CONSENT/REFUSAL FOR 2021-10-06 17:00:29 Doctor Unassigned, No Un [facility] [place] DIAGNOSIS AND TREATMENT Name Medical Branch CT ABDOMEN PELVIS WO 2021-08-30 19:42:00 Radha Gomez [facility] CONTRAST Medical Branch LIPASE 2021-08-30 19:05:00 Radha Gomez [facility] COMP. METABOLIC PANEL 2021-08-30 19:05:00 Radha Gomez [facility] ([id number]) Medical Branch CBC WITH DIFF 2021-08-30 19:05:00 Radha Gomez [facility] URINALYSIS 2021-08-30 19:05:00 Radha Gomez [facility] ASSIGNMENT OF BENEFITS 2021-08-30 18:21:13 Doctor Unassigned, No [facility] CONSENT/REFUSAL FOR 2021-08-30 17:14:58 Doctor Unassigned, No [facility] LACTIC ACID WHOLE BLOOD 2021-07-31 05:34:00 Loren Holt [facility] URINE DRUG (IMMUNOASSAY) 2021-07-31 03:59:00 Loren Hlot [facility] COMPREHENSIVE DRUG Medical [facility] SCREEN LACTIC ACID WHOLE BLOOD 2021-07-31 02:46:00 Loren Holt [facility] RAPID STREP SCREEN FOR 2021-07-31 02:45:[address] [facility] GROUP A Medical Branch COVID-19 (ID NOW RAPID 2021-07-31 02:45:[address] [facility] TESTING) Medical Branch COMP. METABOLIC PANEL 2021-07-31 02:45:00 [id number] Medical Branch CBC WITH DIFF 2021-07-31 02:45:00 Loren Holt [facility] EBV-MONONUCLEOSIS SCREEN 2021-07-31 02:45:00 Loren Holt [facility] NOTICE OF PRIVACY 2021-07-31 01:57:39 Doctor Unassigned, No [facility] PRACTICES Name Medical [place] CONSENT/REFUSAL FOR 2021-07-31 01:47:21 Doctor Unassigned, No [facility] Name [facility] Branch XR CHEST 2 VW 2021-07-12 02:42:29 Devang Harrison University o f [facility] RAPID INFLUENZA A/B 2021-07-12 02:14:00 Albert Sahni [facility] ty of [facility] COVID-19 (ID NOW RAPID 2021-07-12 02:14:[address] [facility] TESTING) [facility] Branch CONSENT/REFUSAL FOR 2021-07-12 01:44:08 Doctor Unassigned, No Un [facility] DIAGNOSIS AND TREATMENT Name [facility] Branch Encounters Start End Encounter Admission Attending Care Care Encounter Source Date/Time Date/Time Type Type Clinicians Facility Department ID 2021-12-29 2021-12-29 [facility] [id number] 00:00:00 00:00:00 _ANN 0804 da [facility] Outre h Program 2021-11-15 2021-11-15 Emergency X Rod FELICIANO [facility] ERT [id number] Univers 00:54:00 02:30:00 ity of [facility] 2021-11-15 2021-11-15 Emergency Rod Feliciano [facility] [id number] Univers 00:54:00 02:30:00 Allie BURGOS [id number] i ty [facility] 4.2.7.2.686 [facility] [id number] [facility] 084 Branch 2021-11-15 2021-11-15 Orders Doctor PRO [id number] Univers 00:00:00 00:00:00 Only Unassigned, JIM [id number] ity of [place] [facility] [address] [place] [address] [id number] [facility] 009 Branch 2021-10-06 2021-10-06 Emergency Mekhi VILLATORO [facility] ERT [id number] Univers 12:11:00 14:16:00 JAYSHREE ity [facility] 2021-10-06 2021-10-06 Emergency Doroteo [facility] [id number] Univers 12:11:00 14:16:00 Jayshree BURGOS [id number] ity [facility] 4.2.7.2.686 [facility] [id number] [address] 2021-08-30 2021-08-30 Emergency [facility] [id number] Univers 12:21:00 17:27:00 RADHA ity of [facility] 2021-08-30 2021-08-30 Emergency [facility] [id number] Univers 12:21:00 17:27:00 Radha S [place] [id number] i ty of [place] 4.2.7.2.686 [facility] [id number] [address] 2021-07-30 2021-07-31 Emergency [facility] [id number] Univers 20:04:00 00:54:00 FOLUSHO ity [facility] 2021-07-30 2021-07-31 Emergency [facility] [id number] Univers 20:04:00 00:54:00 Loren BURGOS [id number] ity of [place] 4.2.7.2.686 [facility] [id number] [address] 2021-07-11 2021-07-11 Emergency X [facility] ERT [id number] Univers 20:14:00 21:53:00 DEVANG ity of [facility] 2021-07-11 2021-07-11 Emergency [facility] [id number] Univers 20:14:00 21:53:00 Devang Rodger AUBREY 350.1.13.10 i ty of [place] 4.2.7.2.686 [facility] [id number] [address] 2021-07-11 2021-07-11 Orders Doctor PRO [id number] Univers 00:00:00 00:00:00 Only Unassigned, JIM [id number] ity of [place] [facility] 4.2.7.2.686 [place] [id number] [place] [address] Branch 2019-12-11 2019-12-11 Emergency X [facility] ERT [id number] Univers 12:18:00 12:18:00 [facility] Results Test Description Test Time Test Comments Results Result Comments Source COMP. METABOLIC PANEL (61041) 2021-08-30 19:39:09 Test Item Value Reference Range Interpretation Comme nts NA (test code = 2556067709) 140 mmol/L 135-145 K (test code = 6084485075) 4.5 mmol/L 3.5-5.0 CL (test code = 5779266222) 101 mmol/L 98-108 CO2 TOTAL (test code = 2670572487) 29 mmol/L 23-31 AGAP (test code = 4031186644) 2-16 BUN (test code = 5367599493) 14 mg/dL 7-23 GLUCOSE (test code = 1897337554) 99 mg/dL 70-110 CREATININE (test code = 0.91 mg/dL 0.60-1.25 8300238772) TOTAL BILI (test code = 0.5 mg/dL 0.1-1.2 1069577432) CALCIUM (test code = 5221166858) 9.5 mg/dL 8.6-10.6 T PROTEIN (test code = 6429697813) 8.3 g/dL 6.3-8.2 H ALBUMIN (test code = 4090145539) 5.1 g/dL 3.5-5.0 H ALK PHOS (test code = 7091021170) 94 U/L 34-122 ALTv (test code = 1742-6) 38 U/L 5-50 AST(SGOT) (test code = 0946671767) 34 U/L 13-40 eGFR (test code = 8860399532) mL/min/1.73m2 MANUEL (test code = MANUEL) Association [...] tests). Lab Interpretation (test code = Abnormal 66567-1) [facility] 19[facility]38:29 Test Item Value Reference Range Interpretation Comments LIPASE (test code = 2003067799) 101 U/L 0-220 Lab Interpretation (test code = Normal 36882-5) [facility] WITH [id number] 19:21:03 Test Item Value Reference Range Interpretation Comments WBC (test code = See_Comment [Automated 4977-2) message] The sy stem which generated this result transmitted reference range : 4.20 - 10.70 10*3/?L. The reference range was not used to interpret this result as normal/abnormal . RBC (test code = See_Comment [Automated 089-8) message] The sy stem which generated this [...] RDW-SD (test code = 44.3 fL 38.5-51.6 76550-7) RDW-CV (test code = 13.0 % 12.1-15.4 788-0) PLT (test code = See_Comment [Automated 777-3) message] The sy stem which generated this result transmitted reference range : 150 - 328 10*3/ ?L. The reference r timmy was not used to interpret this result as normal/abnormal . MPV (test code = 9.9 fL 9.8-13.0 83162-2) NRBC/100 WBC (test See_Comment [Automat ed code = 5060359550) message] The system which generated this result transmitted reference range : 0.0 - 10.0 /100 WBCs. The refer ence range was not u sed to interpret th is result as normal/abnormal . NRBC x10^3 (test code <0.01 See_Comment [Auto mated = 8648403829) message] The s ystem which generated this result transmitted reference range : 10*3/?L. The reference range was not used to interpret this result as normal/abnormal . GRAN MAT (NEUT) % 48.1 % (test code = 770-8) IMM GRAN % (test code 0.30 % = 0695199237) LYMPH % (test code = 36.1 % 736-9) MONO % (test code = 8.3 % 5905-5) EOS % (test code = 6.3 % 713-8) BASO % (test code = 0.9 % 706-2) GRAN MAT x10^3(ANC) 3.05 10*3/uL 1.99-6.95 (test code = 7001546846) IMM GRAN x10^3 (test <0.03 0.00-0.06 code = 1613605865) LYMPH x10^3 (test code 2.29 10*3/uL 1.09-3.23 = 731-0) MONO x10^3 (test code 0.53 10*3/uL 0.36-1.02 = 742-7) EOS x10^3 (test code = 0.40 10*3/uL 0.06-0.53 711-2) BASO x10^3 (test code 0.06 10*3/uL 0.01-0.09 = 704-7) Lab Interpretation Abnormal (test code = 52394-4) [facility] [id number] 06:51:45 Test Item Value Reference Range Interpretation Comments EBV Mononucleosis Screen (test code Negative Negative = 7387699262) Lab Interpretation (test code = Normal 10179-2) [facility]. METABOLIC PANEL ([id number])2021-07-31 03:20:24 Test Item Value Reference Range Interpretation Comments NA (test code = 137 mmol/L 135-145 3597126494) K (test code = 4.1 mmol/L 3.5-5.0 6303317233) CL (test code = 102 mmol/L 98-108 0086611715) CO2 TOTAL (test code = 24 mmol/L 23-31 0230713924) AGAP (test code = 2-16 1109712900) BUN (test code = 13 mg/dL 7-23 2703275130) GLUCOSE (test code = 116 mg/dL 70-110 H 8092558280) CREATININE (test code = 0.77 mg/dL 0.60-1.25 9520087349) TOTAL BILI (test code = 0.5 mg/dL 0.1-1.2 6063993707) CALCIUM (test code = 8.9 mg/dL 8.6-10.6 6854088597) T PROTEIN (test code = 7.5 g/dL 6.3-8.2 7858805994) ALBUMIN (test code = 4.3 g/dL 3.5-5.0 1761238175) ALK PHOS (test code = 94 U/L 34-122 1249618191) ALTv (test code = 48 U/L 5-50 1742-6) AST(SGOT) (test code = 38 U/L 13-40 8159440874) eGFR (test code = mL/min/1.73m2 7012310741) MANUEL (test code = MANUEL) Association of [...] tests). Lab Interpretation Abnormal (test code = 23353-7) [facility] WITH [id number] 03:08:02 Test Item Value Reference Range Interpretation Comments WBC (test code = See_Comment [Automated 8893-2) message] The sy stem which generated this result transmitted reference range : 4.20 - 10.70 10*3/?L. The reference range was not used to interpret this result as normal/abnormal . RBC (test code = See_Comment [Automated 711-2) message] The sy stem which generated this [...] RDW-SD (test code = 42.2 fL 38.5-51.6 68347-9) RDW-CV (test code = 12.6 % 12.1-15.4 788-0) PLT (test code = See_Comment [Automated 777-3) message] The sy stem which generated this result transmitted reference range : 150 - 328 10*3/ ?L. The reference r timmy was not used to interpret this result as normal/abnormal . MPV (test code = 10.0 fL 9.8-13.0 89780-8) NRBC/100 WBC (test See_Comment [Automat ed code = 9090943868) message] The system which generated this result transmitted reference range : 0.0 - 10.0 /100 WBCs. The refer ence range was not u sed to interpret th is result as normal/abnormal . NRBC x10^3 (test code <0.01 See_Comment [Auto mated = 8635157099) message] The s ystem which generated this result transmitted reference range : 10*3/?L. The reference range was not used to interpret this result as normal/abnormal . GRAN MAT (NEUT) % 69.4 % (test code = 770-8) IMM GRAN % (test code 0.40 % = 8788929761) LYMPH % (test code = 17.6 % 736-9) MONO % (test code = 7.1 % 5905-5) EOS % (test code = 5.0 % 713-8) BASO % (test code = 0.5 % 706-2) GRAN MAT x10^3(ANC) 7.36 10*3/uL 1.99-6.95 H (test code = 4181502015) IMM GRAN x10^3 (test 0.04 10*3/uL 0.00-0.06 code = 2621591965) LYMPH x10^3 (test code 1.87 10*3/uL 1.09-3.23 = 731-0) MONO x10^3 (test code 0.75 10*3/uL 0.36-1.02 = 742-7) EOS x10^3 (test code = 0.53 10*3/uL 0.06-0.53 711-2) BASO x10^3 (test code 0.05 10*3/uL 0.01-0.09 = 704-7) Lab Interpretation Abnormal (test code = 61769-8) [facility], [id number] 13:50:47NORMAL CULTURE, URINE SPECIMEN NUMBER: [id number] SPECIMEN COMMENT: URINE SOURCE: URINE REPORT STATUS: FINAL FINAL REPORT: 07/06/2021 <10,000 CFU/ML UROGENITAL DAKSHA PRESENT NO COMMON PATHOGENSCT/NG, NAAT, [id number] 19:10:54 Test Item Value Reference Range Interpretation Comments GONORRHEA, NAAT NEGATIVE NEGATIVE IMPORTA NT NOTICE: SEE (test code = [place] [address]) [email or web address] Note: Assay methodology is nucleic acid amplification b y business support specialist m ediated amplification ( TMA) utilizing the A ptima Combo 2 Assay. CHLAMYDIA, NAAT NEGATIVE NEGATIVE IMPORTA NT NOTICE: SEE (test code = [place] [address]) [email or web address] Note: Assay methodology is nucleic acid amplification b y business support specialist m ediated amplification ( TMA) utilizing the A ptima Combo 2 Assay. UNLESS OTHERWISE INDICATED, ALL TESTING PERFORMED [facility] [address] [place] [id number] [place] [address] DIRECTOR: LIZA RICHEY M.D. CLIA NUMBER [id number] CAP ACCREDITATION N O. [id number]"
[2022-04-27] MEDS ORDERED: AZITHROMYCIN 250 MG TAB ONE (18:00)
[2022-04-27] MEDS ORDERED: HYDROCODONE/CHLORPHEN 5 ML/OSYR ONE (18:01)
--- NOTE | 2022-04-27 18:44 | RAD REPORT ---
EXAM DESCRIPTION: RAD - Chest Pa And Lat (2 Views) - 04/27/2022 6:11 pm CLINICAL HISTORY: COUGH Chest pain. COMPARISON: No comparisons FINDINGS: The lungs are clear. The heart is normal in size. No displaced fractures. IMPRESSION: No acute or concerning finding suspected.
[2022-04-27 18:53] LABS: SARS-COV-2 RT PCR NEGATIVE (NEGATIVE)
--- NOTE | 2022-04-27 18:57 | ER ---
Nurse's Notes [facility] Name: Tim Burgos Age: 41 yrs Sex: Male : 1980 Arrival Date: 04/27/2022 Time: 17:48 Bed DIS3 Private MD: Diagnosis: Influenza due to identified novel influenza A virus;Fever, unspecified;Cough Presentation: 04/27 17:53 Chief complaint: Patient states: Cough X 3 days. Coronavirus screen: At this time, the ld1 client does not indicate any symptoms associated with coronavirus-19. Ebola Screen: No symptoms or risks identified at this time. Initial Sepsis Screen: Does the patient meet any 2 criteria? No. Patient's initial sepsis screen is negative. Does the patient have a suspected source of infection? No. Patient's initial sepsis screen is negative. Risk Assessment: Do you want to hurt yourself or someone else? Patient reports no desire to harm self or others. Onset of symptoms was April 27, 2022. 17:53 Method Of Arrival: Ambulatory ld1 17:53 Acuity: CONNOR 4 ld1 Triage Assessment: 17:54 General: Appears in no apparent distress. comfortable, Behavior is calm, cooperative, ld1 appropriate for age. Pain: Denies pain. EENT: No signs and/or symptoms were reported regarding the EENT system. Neuro: Level of Consciousness is awake, alert, obeys commands, Oriented to person, place, time, situation. Cardiovascular: Capillary refill < 3 seconds Patient's skin is warm and dry. Respiratory: Airway is patent Respiratory effort is even, unlabored. GI: Abdomen is round non-distended. : No signs and/or symptoms were reported regarding the genitourinary system. Derm: No signs and/or symptoms reported regarding the dermatologic system. Musculoskeletal: No signs and/or symptoms reported regarding the musculoskeletal system. Historical: - Allergies: 17:54 Tramadol HCl; ld1 - PMHx: 17:54 Kidney stones; ld1 - PSHx: 17:54 Kidney stent and removal; ld1 - Immunization history:: Adult Immunizations up to date, Client reports receiving the 2nd dose of the Covid vaccine. - Social history:: Smoking status: Patient denies any tobacco usage or history of. Patient/guardian denies using alcohol. Vital Signs: 17:53 BP 131 / 91; Pulse 124; Resp 20; Temp 98.6(TE); Pulse Ox 99% on R/A; Weight 74.84 kg; ld1 Height 5 ft. 2 in. (157.48 cm); Pain 0/10; 17:53 Body Mass Index 30.18 (74.84 kg, 157.48 cm) ld1 ED Course: 17:48 Patient arrived in ED. as 17:51 Amadeo Contreras MD is Attending Physician. [facility] 17:54 Triage completed. ld1 17:54 Arm band placed on right wrist. ld1 18:01 Strep Sent. ld1 18:01 COVID-19/FLU A+B Sent. ld1 18:13 Chest Pa And Lat (2 Views) XRAY In Process Unspecified. EDNJ 18:55 Shari Sadler, RN is Primary Nurse. iw Administered Medications: 18:01 Drug: Zithromax (azithromycin) 500 mg Route: PO; ld1 18:01 Drug: Tussionex Pennkinetic ER (chlorpheniramine-hydrocodone) Suspension 5 ml Route: PO;ld1 19:03 Drug: Motrin (ibuprofen) 600 mg Route: PO; iw 19:03 Drug: Tamiflu (oseltamivir) 75 mg Route: PO; iw Outcome: 18:57 Discharge ordered by . [facility] 19:11 Patient left the ED. as6 Signatures: Dispatcher [employer] EDNJ Amadeo Contreras MD MD cha Martinez, Amelia as Shari Sadler, DEVIN BELTRAN iw Rocio Tilley RN RN ld1 Adolfo Yanez RN RN as6 Corrections: (The following items were deleted from the chart) 17:55 17:53 Pulse 124bpm; Resp 20bpm; Pulse Ox 99% RA; Temp 98.6F Temporal; 74.84 kg; Height ld1 5 ft. 2 in.; BMI: 30.1; Pain 0/10; ld1
--- NOTE | 2022-04-27 18:57 | EDPHYS ---
Physician Documentation [facility] Name: Tim Burgos Age: 41 yrs Sex: Male : 1980 Arrival Date: 04/27/2022 Time: 17:48 Bed DIS3 Private MD: ED Physician Amadeo Contreras HPI: 04/27 18:31 This 41 yrs old Male presents to ER via Ambulatory with complaints of Cough. montrell 18:31 The patient or guardian reports cough, flu symptoms, arthralgias, low-grade fever, montrell myalgias. Onset: The symptoms/episode began/occurred 3 day(s) ago. Severity of symptoms: At their worst the symptoms were mild, in the emergency department the symptoms are unchanged. Modifying factors: The symptoms are alleviated by nothing. Associated signs and symptoms: The patient has no apparent associated signs or symptoms. The patient has not experienced similar symptoms in the past. Historical: - Allergies: 17:54 Tramadol HCl; ld1 - PMHx: 17:54 Kidney stones; ld1 - PSHx: 17:54 Kidney stent and removal; ld1 - Immunization history:: Adult Immunizations up to date, Client reports receiving the 2nd dose of the Covid vaccine. - Social history:: Smoking status: Patient denies any tobacco usage or history of. Patient/guardian denies using alcohol. ROS: 18:35 Constitutional: Negative for fever, chills, and weight loss, Eyes: Negative for injury, montrell pain, redness, and discharge, ENT: Negative for injury, pain, and discharge, Neck: Negative for injury, pain, and swelling, Abdomen/GI: Negative for abdominal pain, nausea, vomiting, diarrhea, and constipation, Back: Negative for injury and pain, : Negative for injury, bleeding, discharge, and swelling, MS/Extremity: Negative for injury and deformity, Skin: Negative for injury, rash, and discoloration, Neuro: Negative for headache, weakness, numbness, tingling, and seizure, Psych: Negative for depression, anxiety, suicide ideation, homicidal ideation, and hallucinations, Allergy/Immunology: Negative for hives, rash, and allergies, Endocrine: Negative for neck swelling, polydipsia, polyuria, polyphagia, and marked weight changes, Hematologic/Lymphatic: Negative for swollen nodes, abnormal bleeding, and unusual bruising. 18:35 Constitutional: Positive for chills, fatigue, fever, malaise. 18:35 Cardiovascular: Positive for chest pain, with cough. 18:35 Respiratory: Positive for cough, with no reported sputum, shortness of breath, at rest. 18:35 MS/extremity: Negative for acute changes. Exam: 18:35 Constitutional: This is a well developed, well nourished patient who is awake, alert, montrell and in no acute distress. Head/Face: Normocephalic, atraumatic. Eyes: Pupils equal round and reactive to light, extra-ocular motions intact. Lids and lashes normal. Conjunctiva and sclera are non-icteric and not injected. Cornea within normal limits. Periorbital areas with no swelling, redness, or edema. ENT: Nares patent. No nasal discharge, no septal abnormalities noted. Tympanic membranes are normal and external auditory canals are clear. Oropharynx with no redness, swelling, or masses, exudates, or evidence of obstruction, uvula midline. Mucous membranes moist. Neck: Trachea midline, no thyromegaly or masses palpated, and no cervical lymphadenopathy. Supple, full range of motion without nuchal rigidity, or vertebral point tenderness. No Meningismus. Chest/axilla: Normal chest wall appearance and motion. Nontender with no deformity. No lesions are appreciated. Abdomen/GI: Soft, non-tender, with normal bowel sounds. No distension or tympany. No guarding or rebound. No evidence of tenderness throughout. Back: No spinal tenderness. No costovertebral tenderness. Full range of motion. Male : Normal genitalia with no discharge or lesions. Skin: Warm, dry with normal turgor. Normal color with no rashes, no lesions, and no evidence of cellulitis. MS/ Extremity: Pulses equal, no cyanosis. Neurovascular intact. Full, normal range of motion. Neuro: Awake and alert, GCS 15, oriented to person, place, time, and situation. Cranial nerves II-XII grossly intact. Motor strength 5/5 in all extremities. Sensory grossly intact. Cerebellar exam normal. Normal gait. Psych: Awake, alert, with orientation to person, place and time. Behavior, mood, and affect are within normal limits. 18:35 Cardiovascular: Rate: tachycardic, Rhythm: regular, Pulses: Pulses are 4+ in bilateral radial, brachial, femoral, popliteal, posterior tibial and and dorsalis pedis arteries.. Heart sounds: normal, Edema: is not appreciated, JVD: is not appreciated. 18:35 Respiratory: the patient does not display signs of respiratory distress, Breath sounds: bronchial sounds, that are mild, are scattered, rhonchi, that are mild, stridor, is not appreciated, + upper airway congestion. Respiratory rate: 20 Vital Signs: 17:53 BP 131 / 91; Pulse 124; Resp 20; Temp 98.6(TE); Pulse Ox 99% on R/A; Weight 74.84 kg; ld1 Height 5 ft. 2 in. (157.48 cm); Pain 0/10; 17:53 Body Mass Index 30.18 (74.84 kg, 157.48 cm) ld1 MDM: 17:51 Patient medically screened. montrell 18:39 Differential diagnosis: viral Infection, bacterial infection, URI, bronchitis, montrell pneumonia. Differential Diagnosis: Obstructed Airway Bronchitis Influenza Upper Respiratory Infection Sinusitis Pharyngitis Viral Syndrome Pneumonia. Data reviewed: vital signs, nurses notes, lab test result(s), radiologic studies, plain films. Data interpreted: director music: rate is 124 beats/min, rhythm is regular, Pulse oximetry: on room air. Test interpretation: by ED physician or midlevel provider: plain radiologic studies. Counseling: I had a detailed discussion with the patient and/or guardian regarding: the historical points, exam findings, and any diagnostic results supporting the discharge/admit diagnosis, lab results, radiology results, the need for outpatient follow up, for definitive care, a family practitioner. 04/27 17:52 Order name: COVID-19/FLU A+B; Complete Time: 18:55 [facility] 04/27 17:55 Order name: Strep; Complete Time: 18:45 ld1 04/27 17:52 Order name: Chest Pa And Lat (2 Views) XRAY; Complete Time: 18:45 [facility] 04/27 18:29 Order name: Throat Culture [facility] 04/27 18:04 Order name: PO challenge montrell Administered Medications: 18:01 Drug: Zithromax (azithromycin) 500 mg Route: PO; ld1 18:01 Drug: Tussionex Pennkinetic ER (chlorpheniramine-hydrocodone) Suspension 5 ml Route: PO;ld1 19:03 Drug: Motrin (ibuprofen) 600 mg Route: PO; iw 19:03 Drug: Tamiflu (oseltamivir) 75 mg Route: PO; iw Disposition Summary: 04/27/22 18:57 Discharge Ordered Location: Home montrell Problem: new montrell Symptoms: have improved montrell Condition: Stable montrell Diagnosis - Influenza due to identified novel influenza A virus montrell - Fever, unspecified montrell - Cough montrell Followup: montrell - With: Private Physician - When: 2 - 3 days - Reason: Recheck today's complaints, Continuance of care, Re-evaluation by your physician Discharge Instructions: - Discharge Summary Sheet montrell - Influenza, Adult montrell - Cool Mist Vaporizer montrell - Influenza, Adult, [id number] montrell - Cough, Adult, Zlvq-vs-Drot montrell - Cough, Adult montrell - Fever, Adult, Ubkm-ac-Rpro montrell Forms: - Medication Reconciliation Form montrell - Thank You Letter montrell - Antibiotic Education montrell - Prescription Opioid Use montrell - Work release form iw Prescriptions: - Tamiflu 75 mg Oral Capsule - take 1 tablet by ORAL route every 12 hours for 5 days; 10 tablet; Refills: 0, [facility] Product Selection Permitted - Guaifenesin AC 10-100 mg/5 mL Oral Liquid - take 10 milliliters by ORAL route every 4-6 hours As needed; 180 milliliter; [facility] Refills: 0, Product Selection Permitted - Zithromax 500 mg Oral Tablet - take 1 tablet by ORAL route once daily for 5 days; 5 tablet; Refills: 0, [facility] Product Selection Permitted Signatures: Dispatcher [employer] Amadeo Leonard MD MD cha Williams, Irene, RN RN Rocio Tilley RN RN ld1
[2022-04-27] MEDS ORDERED: OSELTAMIVIR 75 MG CAP PO ONE (19:01)
[2022-04-27] MEDS ORDERED: IBUPROFEN 200 MG TAB PO ONE (19:02)
[2022-04-27 19:41] VITALS: BP 131/91; TEMP 98.6; O2SAT 99
== END 2022-04-27 19:11 | disposition home or self-care (01) ==
LOC: ER 17:46
DX: J10.1 Influenza due to other identified influenza virus with other respiratory manifestations (principal); R05.9 Cough, unspecified; Z20.822 Contact with and (suspected) exposure to COVID-19; Z88.5 Allergy status to narcotic agent
CPT/HCPCS: 0240U; 71046; 87070; 87081; 99283; Q0144

== ENCOUNTER 2022-08-02 11:32 | Emergency (ER) | payer BC ==
--- OUTSIDE RECORDS SUMMARY | 2022-08-02 11:36 | XMS REPORT | Continuity of Care Document ---
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 transmitted reference range : 0.0 - 10.0 /100 WBCs. The refer ence range was not u sed to interpret th is result as normal/abnormal . NRBC x10^3 (test code <0.01 See_Comment [Auto mated = 3721992658) message] The s ystem which generated this result transmitted reference range : 10*3/?L. The reference range was not used to interpret this result as normal/abnormal . GRAN MAT (NEUT) % 48.1 % (test code = 770-8) IMM GRAN % (test code 0.30 % = 6954024869) LYMPH % (test code = 36.1 % 736-9) MONO % (test code = 8.3 % 5905-5) EOS % (test code = 6.3 % 713-8) BASO % (test code = 0.9 % 706-2) GRAN MAT x10^3(ANC) 3.05 10*3/uL 1.99-6.95 (test code = 6522382243) IMM GRAN x10^3 (test <0.03 0.00-0.06 code = 9254880086) LYMPH x10^3 (test code 2.29 10*3/uL 1.09-3.23 = 731-0) MONO x10^3 (test code 0.53 10*3/uL 0.36-1.02 = 742-7) EOS x10^3 (test code = 0.40 10*3/uL 0.06-0.53 711-2) BASO x10^3 (test code 0.06 10*3/uL 0.01-0.09 = 704-7) Lab Interpretation Abnormal (test code = 72902-8) [facility] [id number] 06:51:45 Test Item Value Reference Range Interpretation Comments EBV Mononucleosis Screen (test code Negative Negative = 4380885349) Lab Interpretation (test code = Normal 07809-1) [facility] ([id number])2021-07-31 03:20:24 Test Item Value Reference Range Interpretation Comments NA (test code = 137 mmol/L 135-145 8610009853) K (test code = 4.1 mmol/L 3.5-5.0 3961851909) CL (test code = 102 mmol/L 98-108 0079356254) CO2 TOTAL (test code = 24 mmol/L 23-31 1684809991) AGAP (test code = 2-16 8212779133) BUN (test code = 13 mg/dL 7-23 6701187155) GLUCOSE (test code = 116 mg/dL 70-110 H 0233478068) CREATININE (test code = 0.77 mg/dL 0.60-1.25 5876837223) TOTAL BILI (test code = 0.5 mg/dL 0.1-1.5 5498077611) CALCIUM (test code = 8.9 mg/dL 8.6-10.6 1086305885) T PROTEIN (test code = 7.5 g/dL 6.3-8.2 7059031272) ALBUMIN (test code = 4.3 g/dL 3.5-5.0 8352526729) ALK PHOS (test code = 94 U/L 34-122 3062946968) ALTv (test code = 48 U/L 5-50 1742-6) AST(SGOT) (test code = 38 U/L 13-40 5154820342) eGFR (test code = mL/min/1.73m2 5239209584) MANUEL (test code = MANUEL) Association of [...] tests). Lab Interpretation Abnormal (test code = 67725-4) [facility] WITH [id number] 03:08:02 Test Item Value Reference Range Interpretation Comments WBC (test code = See_Comment [Automated 1872-2) message] The sy stem which generated this result transmitted reference range : 4.20 - 10.70 10*3/?L. The reference range was not used to interpret this result as normal/abnormal . RBC (test code = See_Comment [Automated 380-8) message] The sy stem which generated this [...] RDW-SD (test code = 42.2 fL 38.5-51.6 59423-4) RDW-CV (test code = 12.6 % 12.1-15.4 788-0) PLT (test code = See_Comment [Automated 777-3) message] The sy stem which generated this result transmitted reference range : 150 - 328 10*3/ ?L. The reference r timmy was not used to interpret this result as normal/abnormal . MPV (test code = 10.0 fL 9.8-13.0 28307-9) NRBC/100 WBC (test See_Comment [Automat ed code = 8766631443) message] The system which generated this result transmitted reference range : 0.0 - 10.0 /100 WBCs. The refer ence range was not u sed to interpret th is result as normal/abnormal . NRBC x10^3 (test code <0.01 See_Comment [Auto mated = 7244119414) message] The s ystem which generated this result transmitted reference range : 10*3/?L. The reference range was not used to interpret this result as normal/abnormal . GRAN MAT (NEUT) % 69.4 % (test code = 770-8) IMM GRAN % (test code 0.40 % = 1897177781) LYMPH % (test code = 17.6 % 736-9) MONO % (test code = 7.1 % 5905-5) EOS % (test code = 5.0 % 713-8) BASO % (test code = 0.5 % 706-2) GRAN MAT x10^3(ANC) 7.36 10*3/uL 1.99-6.95 H (test code = 6423512595) IMM GRAN x10^3 (test 0.04 10*3/uL 0.00-0.06 code = 4129094421) LYMPH x10^3 (test code 1.87 10*3/uL 1.09-3.23 = 731-0) MONO x10^3 (test code 0.75 10*3/uL 0.36-1.02 = 742-7) EOS x10^3 (test code = 0.53 10*3/uL 0.06-0.53 711-2) BASO x10^3 (test code 0.05 10*3/uL 0.01-0.09 = 704-7) Lab Interpretation Abnormal (test code = 65585-3) [facility] [id number] 13:50:47NORMAL CULTURE, URINE SPECIMEN NUMBER: [id number] SPECIMEN COMMENT: URINE SOURCE: URINE REPORT STATUS: FINAL FINAL REPORT: 07/06/2021 <10,000 CFU/ML UROGENITAL DAKSHA PRESENT NO COMMON PATHOGENSCT/NG, NAAT, [id number] 19:10:54 Test Item Value Reference Range Interpretation Comments GONORRHEA, NAAT NEGATIVE NEGATIVE IMPORTA NT NOTICE: SEE (test code = [place] [address]) [email or web address]Kit Note: Assay methodology is nucleic acid amplification b y manager fitness m ediated amplification ( TMA) utilizing the A ptima Combo 2 Assay. CHLAMYDIA, NAAT NEGATIVE NEGATIVE IMPORTA NT NOTICE: SEE (test code = [place] [address]) [email or web address] MinubesUrineKit Note: Assay methodology is nucleic acid amplification b y manager fitness m ediated amplification ( TMA) utilizing the A ptima Combo 2 Assay. UNLESS OTHERWISE INDICATED, ALL TESTING PERFORMED [facility] [address] [place] [id number] MICHEAL SHEPARD DIRECTOR: LIZA RICHEY M.D. CLIA NUMBER [id number] CAP ACCREDITATION N O. [id number]"
[2022-08-02] MEDS ORDERED: ONDANSETRON 4 MG (ODT) TAB ONE (12:53)
[2022-08-02 14:11] VITALS: BP 113/83; TEMP 97.8; O2SAT 98
--- NOTE | 2022-08-18 15:24 | EDPHYS ---
Physician Documentation [facility] Name: Tim Burgos Age: 41 yrs Sex: Male : 1980 Arrival Date: 08/02/2022 Time: 11:37 Bed 12 Private MD: ED Physician Jeff Sim HPI: 08/02 13:30 This 41 yrs old Male presents to ER via Ambulatory with complaints of Abdominal Pain, ms3 Nausea/Vomiting/Diarrhea, Dizziness. 13:30 41-year-old male with past medical history of kidney stones presents for nausea, ms3 vomiting, diarrhea that began on Sunday night. Patient states a GI bug has been going around his family. Patient denies alleviating or inciting factors. Patient states his discomfort is a 6/10 and states his stomach is knotted up.. Historical: - Allergies: 11:44 Tramadol HCl; ap3 - Home Meds: 11:44 None [Active]; ap3 - PMHx: 11:44 Kidney stones; ap3 - PSHx: 11:44 Kidney stent and removal; ap3 - Immunization history:: Client reports having NOT received the Covid vaccine. Flu vaccine is not up to date. - Social history:: Smoking status: Patient reports use of chewing tobacco. ROS: 13:30 Constitutional: Negative for fever, and chills. ENT: Negative for injury, pain, and ms3 discharge, Neck: Negative for injury, pain, and swelling, Cardiovascular: Negative for chest pain, and palpitations. Respiratory: Negative for shortness of breath, cough, wheezing, and pleuritic chest pain. 13:30 MS/Extremity: Negative for injury and deformity, Skin: Negative for injury, rash, and discoloration. 13:30 Abdomen/GI: Positive for nausea, vomiting, and diarrhea. 13:30 All other systems are negative. Exam: 13:30 Constitutional: This is a well developed, well nourished patient who is awake, alert, ms3 and in no acute distress. Head/Face: Normocephalic, atraumatic. Chest/axilla: Normal chest wall appearance and motion. Nontender with no deformity. Cardiovascular: Regular rate and rhythm with a normal S1 and S2. No gallops, murmurs, or rubs. Normal PMI, no JVD. No pulse deficits. Respiratory: Lungs have equal breath sounds bilaterally, clear to auscultation and percussion. No rales, rhonchi or wheezes noted. No increased work of breathing, no retractions or nasal flaring. Abdomen/GI: Soft, non-tender, with normal bowel sounds. No distension or tympany. No guarding or rebound. No evidence of tenderness throughout. Skin: Warm, dry with normal turgor. Normal color with no rashes, no lesions, and no evidence of cellulitis. MS/ Extremity: Pulses equal, no cyanosis. Neurovascular intact. Full, normal range of motion. Vital Signs: 11:43 BP 113 / 83; Pulse 82; Resp 17; Temp 97.8; Pulse Ox 98% ; Weight 72.57 kg; Height 5 ft. ap3 1 in. ; Pain 6/10; 11:43 Body Mass Index 30.23 (72.57 kg, 154.94 cm) ap3 11:43 Pain Scale: Adult ap3 MDM: 12:07 Patient medically screened. ms3 13:30 Differential diagnosis: Nonspecific abd pain, gastritis, viral gastroenteritis, ms3 gastroenteritis. Data reviewed: vital signs, nurses notes, and as a result, I will discharge patient. I considered the following discharge prescriptions or medication management in the emergency department Medications were administered in the Emergency Department. See MAR. Counseling: I had a detailed discussion with the patient and/or guardian regarding: the historical points, exam findings, and any diagnostic results supporting the discharge/admit diagnosis, the need for outpatient follow up, to return to the emergency department if symptoms worsen or persist or if there are any questions or concerns that arise at home. ED course: Patient improved, tolerating p.o., in no apparent distress, nontoxic-appearing. Patient to follow-up with primary care physician in 2 to 3 days. Patient understands and agrees with plan. All questions were answered. Return precautions discussed include worsening symptoms, or any other concerns.. Administered Medications: 12:45 Not Given (Other Intervention Used): Ibuprofen PO 600 mg PO once ss 12:50 Drug: Ondansetron PO 4 mg Route: PO; hb 13:59 Follow up: Response: No adverse reaction hb Disposition Summary: 08/02/22 13:23 Discharge Ordered Location: Home ms3 Condition: Stable ms3 Diagnosis - Nausea with vomiting, unspecified ms3 - Diarrhea, unspecified ms3 Followup: ms3 - With: Phill Leiva DO - When: 2 - 3 days - Reason: Recheck today's complaints Discharge Instructions: - Discharge Summary Sheet ms3 - Diarrhea, Adult ms3 - Nausea and Vomiting, Adult ms3 Forms: - Work release form ss - Medication Reconciliation Form ms3 - Thank You Letter ms3 - Antibiotic Education ms3 - Prescription Opioid Use ms3 Prescriptions: - Zofran 4 mg Oral Tablet - take 1 tablet by SUBLINGUAL route every 8 hours; 15 tablet; Refills: 0, Product ms3 Selection Permitted Signatures: Dispatcher [employer] EDMS Yolanda Villasenor, RN RN hb Xochilt Brooks RN RN ap3 Jeff Sim DO DO ms3 Roya Martinez RN ss Corrections: (The following items were deleted from the chart) 12:54 12:09 Ankle Right 3 View+RAD.RAD.BRZ ordered. EDMS EDMS
--- NOTE | 2022-08-18 15:24 | ER ---
Nurse's Notes [facility] Name: Tim Burgos Age: 41 yrs Sex: Male : 1980 Arrival Date: 08/02/2022 Time: 11:37 Bed 12 Private MD: Diagnosis: Nausea with vomiting, unspecified;Diarrhea, unspecified Presentation: 08/02 11:43 Chief complaint: Patient states: he has been having nausea, vomiting, diarrhea since ap3 Sunday07/30/22. Patient also reports dizziness. Coronavirus screen: At this time, the client does not indicate any symptoms associated with coronavirus-19. Ebola Screen: No symptoms or risks identified at this time. Initial Sepsis Screen: Does the patient meet any 2 criteria? No. Patient's initial sepsis screen is negative. Does the patient have a suspected source of infection? No. Patient's initial sepsis screen is negative. Risk Assessment: Do you want to hurt yourself or someone else? Patient reports no desire to harm self or others. Onset of symptoms was July 31, 2022. 11:43 Method Of Arrival: Ambulatory ap3 11:43 Acuity: CONNOR 3 ap3 Triage Assessment: 11:45 General: Appears in no apparent distress. Behavior is calm, cooperative, appropriate ap3 for age. Pain: Complains of pain in abdomen. Neuro: Level of Consciousness is awake, alert, obeys commands, Oriented to person, place, time, situation. Cardiovascular: Patient's skin is warm and dry. Respiratory: Airway is patent Respiratory effort is even, unlabored, Respiratory pattern is regular, symmetrical. GI: Reports diarrhea, nausea, vomiting. Historical: - Allergies: 11:44 Tramadol HCl; ap3 - Home Meds: 11:44 None [Active]; ap3 - PMHx: 11:44 Kidney stones; ap3 - PSHx: 11:44 Kidney stent and removal; ap3 - Immunization history:: Client reports having NOT received the Covid vaccine. Flu vaccine is not up to date. - Social history:: Smoking status: Patient reports use of chewing tobacco. Screenin:45 [facility] ED Fall Risk Assessment (Adult) History of falling in the last 3 months, ap3 including since admission No falls in past 3 months (0 pts). Abuse screen: Denies threats or abuse. Nutritional screening: No deficits noted. Tuberculosis screening: No symptoms or risk factors identified. Assessment: 12:50 General: Appears in no apparent distress. Behavior is calm, cooperative. Pain: Pain hb currently is 5 out of 10 on a pain scale. Neuro: Level of Consciousness is awake, alert, obeys commands, Oriented to person, place, time, situation. Cardiovascular: Patient's skin is warm and dry. Respiratory: Respiratory effort is even, unlabored, Respiratory pattern is regular, symmetrical. GI: Reports lower abdominal pain, upper abdominal pain, cramping, diarrhea, nausea, vomiting. : No signs and/or symptoms were reported regarding the genitourinary system. EENT: No signs and/or symptoms were reported regarding the EENT system. Derm: Skin is pink, warm \T\ dry. Musculoskeletal: No signs and/or symptoms reported regarding the musculoskeletal system. 13:45 Reassessment: Patient appears in no apparent distress at this time. Patient and/or hb family updated on plan of care and expected duration. Pain level reassessed. Patient is alert, oriented x 3, equal unlabored respirations, skin warm/dry/pink. Patient states symptoms have improved. Vital Signs: 11:43 BP 113 / 83; Pulse 82; Resp 17; Temp 97.8; Pulse Ox 98% ; Weight 72.57 kg; Height 5 ft. ap3 1 in. ; Pain 6/10; 11:43 Body Mass Index 30.23 (72.57 kg, 154.94 cm) ap3 11:43 Pain Scale: Adult ap3 ED Course: 11:37 Patient arrived in ED. mr 11:41 Jeff Sim DO is Attending Physician. ms3 11:44 Triage completed. ap3 11:45 Arm band placed on right wrist. ap3 12:05 Patient has correct armband on for positive identification. hb 13:23 Phill Leiva DO is Referral Physician. ms3 14:00 No provider procedures requiring assistance completed. Patient did not have IV access hb during this emergency room visit. Administered Medications: 12:45 Not Given (Other Intervention Used): Ibuprofen PO 600 mg PO once ss 12:50 Drug: Ondansetron PO 4 mg Route: PO; hb 13:59 Follow up: Response: No adverse reaction hb Medication: 13:45 VIS not applicable for this client. hb Outcome: 13:23 Discharge ordered by MD. ms3 14:00 Discharged to home ambulatory. hb 14:00 Condition: stable 14:00 Discharge instructions given to patient, Instructed on discharge instructions, follow up and referral plans. medication usage, Demonstrated understanding of instructions, follow-up care, medications, Prescriptions given X 1. 14:00 Patient left the ED. Signatures: Anna GarciaterYolanda RN RN Xochilt Brooks RN RN ap3 Jeff Sim DO DO ms3 Roya Martinez RN ss
== END 2022-08-02 14:00 | disposition home or self-care (01) ==
LOC: ER 11:32
DX: R11.2 Nausea with vomiting, unspecified (principal); R19.7 Diarrhea, unspecified; Z87.442 Personal history of urinary calculi; F17.220 Nicotine dependence, chewing tobacco, uncomplicated; Z88.5 Allergy status to narcotic agent
CPT/HCPCS: 99283; Q0162

== ENCOUNTER 2022-12-21 12:36 | Emergency (ER) | payer BC ==
--- OUTSIDE RECORDS SUMMARY | 2022-12-21 12:41 | XMS REPORT | Continuity of Care Document ---
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 <0.01 See_Comment [Auto mated = 6340795975) message] The s ystem which generated this result transmitted reference range : 10*3/?L. The reference range was not used to interpret this result as normal/abnormal . GRAN MAT (NEUT) % 69.4 % (test code = 770-8) IMM GRAN % (test code 0.40 % = 3396429931) LYMPH % (test code = 17.6 % 736-9) MONO % (test code = 7.1 % 5905-5) EOS % (test code = 5.0 % 713-8) BASO % (test code = 0.5 % 706-2) GRAN MAT x10^3(ANC) 7.36 10*3/uL 1.99-6.95 H (test code = 2409277914) IMM GRAN x10^3 (test 0.04 10*3/uL 0.00-0.06 code = 1947757068) LYMPH x10^3 (test code 1.87 10*3/uL 1.09-3.23 = 731-0) MONO x10^3 (test code 0.75 10*3/uL 0.36-1.02 = 742-7) EOS x10^3 (test code = 0.53 10*3/uL 0.06-0.53 711-2) BASO x10^3 (test code 0.05 10*3/uL 0.01-0.09 = 704-7) Lab Interpretation Abnormal (test code = 26774-9) [facility], [id number] 13:50:47NORMAL CULTURE, URINE SPECIMEN NUMBER: [id number] SPECIMEN COMMENT: URINE SOURCE: URINE REPORT STATUS: FINAL FINAL REPORT: 07/06/2021 <10,000 CFU/ML UROGENITAL DAKSHA PRESENT NO COMMON PATHOGENSCT/NG, NAAT, [id number] 19:10:54 Test Item Value Reference Range Interpretation Comments GONORRHEA, NAAT NEGATIVE NEGATIVE IMPORTA NT NOTICE: SEE (test code = [place] [address]) [email or web address] Note: Assay methodology is nucleic acid amplification b y size roller operator m ediated amplification ( TMA) utilizing the A ptima Combo 2 Assay. CHLAMYDIA, NAAT NEGATIVE NEGATIVE IMPORTA NT NOTICE: SEE (test code = [place] [address]) [email or web address] Note: Assay methodology is nucleic acid amplification b y size roller operator m ediated amplification ( TMA) utilizing the A ptima Combo 2 Assay. UNLESS OTHERWISE INDICATED, ALL TESTING PERFORMED [facility] [address] [place] [address] MICHEAL SHEPARD DIRECTOR: LIZA RICHEY M.D. CLIA NUMBER [id number] CAP ACCREDITATION N O. [id number]"
--- NOTE | 2022-12-21 13:29 | RAD REPORT ---
EXAM DESCRIPTION: CTAbdomen Pelvis Wo Contrast - 12/21/2022 1:05 pm CLINICAL HISTORY: FLANK PAIN COMPARISON: Stone Protocol dated 03/26/2022 TECHNIQUE: CT of the abdomen and pelvis was performed. All CT scans are performed using dose optimization technique as appropriate and may include automated exposure control or mA/KV adjustment according to patient size. FINDINGS: Lower chest: No acute abnormality. Liver: No acute abnormality or suspicious lesions. Hepatic steatosis Biliary: No biliary ductal dilatation. Stomach: No significant focal abnormality. Duodenum: No significant focal abnormality. Pancreas: No significant abnormality. Spleen: No significant abnormality. Adrenal: No suspicious lesions. Kidney/ureter: No hydronephrosis. Nonobstructive bilateral nephrolithiasis. Retroperitoneum: No retroperitoneal adenopathy. Vascular: No aneurysm. Bowel: No significant focal abnormality. Normal appendix. Peritoneum: No ascites or free air. Bladder: Grossly unremarkable. Reproductive: No adnexal masses. Bones: No acute fracture. Other: n/a IMPRESSION: No acute intra-abdominal or pelvic finding. Nonobstructive bilateral nephrolithiasis. No rmal appendix.
[2022-12-21] MEDS ORDERED: KETOROLAC 30 MG/ML INJ ONE (13:33)
[2022-12-21] MEDS ORDERED: NA CHLORIDE 0.9% 1,000 ML ONE (13:33)
[2022-12-21] MEDS ORDERED: ONDANSETRON 4 MG/2 ML VIAL ONE (13:33)
[2022-12-21 13:37] LABS: Hematocrit 45.4 % (39.6-49.0); Lymphocytes % 29.5 % (15.3-44.8); MCV 90.2 fL (80-100); MPV 7.9 fL (7.6-11.3); RBC Red Blood Cell Count 5.04 M/uL (4.33-5.43)
[2022-12-21 13:51] LABS: Potassium 4.2 mEq/L (3.5-5.1)
[2022-12-21 13:52] LABS: Albumin 3.6 g/dL (3.4-5.0); Bilirubin Total 0.4 mg/dL (0.2-1.0); Protein, Total 7.2 g/dL (6.4-8.2)
[2022-12-21] MEDS ORDERED: DIAZEPAM 5 MG TABLET ONE (15:03)
--- NOTE | 2022-12-21 15:24 | ER ---
Nurse's Notes [facility] Name: Tim Burgos Age: 42 yrs Sex: Male : 1980 Arrival Date: 12/21/2022 Time: 12:36 Bed 11 Private MD: Diagnosis: Low back pain;Muscle spasm of back Presentation: 12/21 12:50 Chief complaint: Patient states: right flank pain, hx of kidney stones. aa5 12:50 Acuity: CONNOR 3 aa5 12:50 Coronavirus screen: At this time, the client does not indicate any symptoms associated aa5 with coronavirus-19. Ebola Screen: Patient denies travel to an Ebola-affected area in the 21 days before illness onset. Initial Sepsis Screen: Does the patient meet any 2 criteria? HR > 90 bpm. Does the patient have a suspected source of infection? No. Patient's initial sepsis screen is negative. Risk Assessment: Do you want to hurt yourself or someone else? Patient reports no desire to harm self or others. Onset of symptoms was November 2022. 12:50 Method Of Arrival: Ambulatory aa5 Historical: - Allergies: 12:50 Tramadol HCl; aa5 - PMHx: 12:50 Kidney stones; aa5 12:51 Hypertensive disorder; Diabetes mellitus; Hypercholesterolemia; aa5 - PSHx: 12:50 Kidney stent and removal; aa5 - Immunization history:: Adult Immunizations unknown. - Social history:: Smoking status: Patient denies any tobacco usage or history of. Screenin:29 [facility] ED Fall Risk Assessment (Adult) History of falling in the last 3 months, ph including since admission No falls in past 3 months (0 pts) Confusion or Disorientation No (0 pts). Abuse screen: Denies threats or abuse. Denies injuries from another. Nutritional screening: No deficits noted. Tuberculosis screening: No symptoms or risk factors identified. Assessment: 13:38 General: Appears in no apparent distress. uncomfortable, Behavior is calm, cooperative, ph appropriate for age. Pain: Complains of pain in left low back, left mid back, right mid back and right low back Pain radiates to abdomen. Neuro: Level of Consciousness is awake, alert, obeys commands, Oriented to person, place, time, situation. Cardiovascular: Capillary refill < 3 seconds in bilateral fingers Patient's skin is warm and dry. Respiratory: Airway is patent Respiratory effort is even, unlabored. GI: Reports nausea. : Reports pain in bilateral flank(s). 15:52 Reassessment: Patient appears in no apparent distress at this time. Patient and/or ph family updated on plan of care and expected duration. Pain level reassessed. Patient is alert, oriented x 3, equal unlabored respirations, skin warm/dry/pink. Patient states feeling better. Patient states symptoms have improved. Vital Signs: 12:50 BP 118 / 94; Pulse 100; Resp 18 S; Temp 97.9(TE); Pulse Ox 100% on R/A; Weight 74.84 kg aa5 (R); Height 5 ft. 1 in. (R); 13:44 BP 112 / 79; Pulse 91; Resp 17; Pulse Ox 100% on R/A; Pain 6/10; me1 15:52 BP 118 / 75; Pulse 87; Resp 18; Pulse Ox 98% on R/A; ph 12:50 Body Mass Index 31.18 (74.84 kg, 154.94 cm) aa5 13:44 Pain Scale: Adult me1 ED Course: 12:38 Patient arrived in ED. im 12:45 Jeff Sim DO is Attending Physician. ms3 12:49 Arm band placed on. aa5 12:52 Triage completed. aa5 13:07 CT Abd/Pelvis - Without Contrast In Process Unspecified. EDMS 13:11 Karon Marvin, RN is Primary Nurse. ph 13:28 No provider procedures requiring assistance completed. Initial lab(s) drawn, by mn, ph sent to lab. Inserted saline lock: 22 gauge in left antecubital area, using aseptic technique. Blood collected. 13:31 Patient has correct armband on for positive identification. Bed in low position. Call ph light in reach. Side rails up X 1. Pulse ox on. NIBP on. 13:42 Mikhail Singh is Hospitalizing Provider. ms3 15:24 Phill Leiva DO is Referral Physician. ms3 15:53 IV discontinued, intact, bleeding controlled, No redness/swelling at site. Pressure ph dressing applied. Administered Medications: 13:27 Drug: NS 0.9% IV 1000 ml Route: IV; Rate: 1 bolus; Site: left antecubital; ph 15:54 Follow up: Response: No adverse reaction; IV Status: Completed infusion; IV Intake: ph 1000ml 13:27 Drug: TORadol - Ketorolac IVP 15 mg Route: IVP; Site: left antecubital; ph 15:54 Follow up: Response: No adverse reaction; Pain is decreased ph 14:56 Drug: Diazepam PO 5 mg Route: PO; ph 15:54 Follow up: Response: No adverse reaction ph Medication: 13:31 VIS not applicable for this client. ph Intake: 15:54 IV: 1000ml; Total: 1000ml. ph Outcome: 13:43 Decision to Hospitalize by Provider. ms3 15:24 Discharge ordered by MD. ms3 15:53 Discharged to home ambulatory, with significant other. ph 15:53 Condition: good 15:53 Discharge instructions given to patient, Instructed on discharge instructions, follow up and referral plans. medication usage, Demonstrated understanding of instructions, follow-up care, medications, Prescriptions given X 2. 15:54 Patient left the ED. ph Signatures: Dispatcher [employer] EDAparna Duffy RN RN aa5 Karon Marvin RN RN Jeff Sim DO DO ms3 Milka Mitchell Michelle RN RN me1 Corrections: (The following items were deleted from the chart) 12:53 12:50 Pulse 100bpm; Resp 18bpm; Spontaneous; Pulse Ox 100% RA; Temp 97.9F Temporal; aa5 74.84 kg Reported; Height 5 ft. 1 in. Reported; BMI: 31.1; aa5
--- NOTE | 2022-12-21 15:24 | EDPHYS ---
Physician Documentation [facility] Name: Tim Burgos Age: 42 yrs Sex: Male : 1980 Arrival Date: 12/21/2022 Time: 12:36 Bed 11 Private MD: ED Physician Jeff Sim HPI: 12/21 13:07 This 42 yrs old Male presents to ER via Ambulatory with complaints of Low Back Pain. ms3 13:07 42-year-old male with past medical history of kidney stones, hypertension, diabetes, ms3 hyperlipidemia presents for right flank pain that began yesterday. Patient rates his pain a 7/10. Patient denies alleviating or inciting factors. Patient denies fevers, chills. Patient endorses nausea. Historical: - Allergies: 12:50 Tramadol HCl; aa5 - PMHx: 12:50 Kidney stones; aa5 12:51 Hypertensive disorder; Diabetes mellitus; Hypercholesterolemia; aa5 - PSHx: 12:50 Kidney stent and removal; aa5 - Immunization history:: Adult Immunizations unknown. - Social history:: Smoking status: Patient denies any tobacco usage or history of. ROS: 13:07 Constitutional: Negative for fever, and chills. Neck: Negative for injury, pain, and ms3 swelling, Cardiovascular: Negative for chest pain, and palpitations. Respiratory: Negative for shortness of breath, cough, wheezing, and pleuritic chest pain. 13:07 Neuro: Negative for headache, weakness, numbness, tingling. 13:07 Abdomen/GI: 13:07 Back: Positive for flank pain, on the right. 13:07 All other systems are negative. Exam: 13:07 Constitutional: This is a well developed, well nourished patient who is awake, alert, ms3 and in no acute distress. Head/Face: Normocephalic, atraumatic. Neck: Trachea midline, no cervical lymphadenopathy. Supple, full range of motion without nuchal rigidity, or vertebral point tenderness. No Meningismus. Chest/axilla: Normal chest wall appearance and motion. Nontender with no deformity. Cardiovascular: Regular rate and rhythm with a normal S1 and S2. No gallops, murmurs, or rubs. Normal PMI, no JVD. No pulse deficits. Respiratory: Lungs have equal breath sounds bilaterally, clear to auscultation and percussion. No rales, rhonchi or wheezes noted. No increased work of breathing, no retractions or nasal flaring. Abdomen/GI: Soft, non-tender, with normal bowel sounds. No distension or tympany. No guarding or rebound. No evidence of tenderness throughout. Skin: Warm, dry with normal turgor. Normal color with no rashes, no lesions, and no evidence of cellulitis. MS/ Extremity: Pulses equal, no cyanosis. Neurovascular intact. Full, normal range of motion. Vital Signs: 12:50 BP 118 / 94; Pulse 100; Resp 18 S; Temp 97.9(TE); Pulse Ox 100% on R/A; Weight 74.84 kg aa5 (R); Height 5 ft. 1 in. (R); 13:44 BP 112 / 79; Pulse 91; Resp 17; Pulse Ox 100% on R/A; Pain 6/10; me1 15:52 BP 118 / 75; Pulse 87; Resp 18; Pulse Ox 98% on R/A; ph 12:50 Body Mass Index 31.18 (74.84 kg, 154.94 cm) aa5 13:44 Pain Scale: Adult me1 MDM: 12:53 Patient medically screened. ms3 13:07 Differential diagnosis: strain, sciatica, UTI, Kidney stone. ms3 17:21 Data reviewed: vital signs, nurses notes, lab test result(s), radiologic studies, and ms3 as a result, I will discharge patient. I considered the following discharge prescriptions or medication management in the emergency department Medications were administered in the Emergency Department. See MAR. Care significantly affected by the following chronic conditions: Diabetes, Hypertension. Counseling: I had a detailed discussion with the patient and/or guardian regarding: the historical points, exam findings, and any diagnostic results supporting the discharge/admit diagnosis, lab results, radiology results, the need for outpatient follow up, to return to the emergency department if symptoms worsen or persist or if there are any questions or concerns that arise at home. Response to treatment: the patient's symptoms have markedly improved after treatment, and as a result, I will discharge patient. Special discussion: I discussed with the patient/guardian in detail that at this point there is no indication for admission to the hospital. It is understood, however, that if the symptoms persist or worsen the patient needs to return immediately for re-evaluation. ED course: Patient states pain is improved after Toradol and Valium. Discussed labs and CT with patient not revealing kidney stone. Discussed with patient likely muscle spasm. Patient to follow-up with primary care in 2 to 3 days. Patient understands and agrees with plan. All questions were answered. Return precautions discussed include worsening symptoms, or any other concerns. 12/21 12:54 Order name: CBC with Diff; Complete Time: 14:08 ms3 12/21 12:54 Order name: CMP; Complete Time: 14: ms3 12/21 12:54 Order name: CT Abd/Pelvis - Without Contrast; Complete Time: 13:36 ms3 12/21 12:54 Order name: IV Saline Lock; Complete Time: 13:27 ms3 12/21 12:54 Order name: Labs collected and sent; Complete Time: 13: ms3 Administered Medications: 13: Drug: NS 0.9% IV 1000 ml Route: IV; Rate: 1 bolus; Site: left antecubital; ph 15:54 Follow up: Response: No adverse reaction; IV Status: Completed infusion; IV Intake: ph 1000ml 13:27 Drug: TORadol - Ketorolac IVP 15 mg Route: IVP; Site: left antecubital; ph 15:54 Follow up: Response: No adverse reaction; Pain is decreased ph 14:56 Drug: Diazepam PO 5 mg Route: PO; ph 15:54 Follow up: Response: No adverse reaction ph Disposition Summary: 12/21/22 15:24 Discharge Ordered Location: Home(12/21/22 15:24) ms3 Condition: Stable(12/21/22 15:24) ms3 Diagnosis - Low back pain ms3 - Muscle spasm of back ms3 Followup: ms3 - With: Phill Leiva, DO - When: 2 - 3 days - Reason: Recheck today's complaints Discharge Instructions: - Discharge Summary Sheet ph - Acute Back Pain, Adult ms3 Forms: - Work release form ph - Medication Reconciliation Form ms3 - Thank You Letter ms3 - Antibiotic Education ms3 - Prescription Opioid Use ms3 - Patient Portal Instructions ms3 Prescriptions: - Ibuprofen 600 mg Oral Tablet - take 1 tablet by ORAL route every 6 hours As needed take with food; 30 tablet; ms3 Refills: 0, Product Selection Permitted - Cyclobenzaprine 5 mg Oral Tablet - take 1 tablet by ORAL route 3 times per day As needed; 15 tablet; Refills: 0, ms3 Product Selection Permitted Signatures: Dispatcher [employer] Zakiya Minor MD MD cp3 Aparna Dailey RN RN aa5 Karon Marvin RN RN [facility], Jeff, DO ms3 Corrections: (The following items were deleted from the chart) 13:43 13:43 Observation ms3 ms3 13:43 13:43 Mikhail Singh ms3 ms3 13:43 13:43 Telemetry/MedSurg (observation) ms3 ms3 13:43 13:43 Stable ms3 ms3 13:43 13:43 new ms3 ms3 13:43 13:43 are unchanged ms3 ms3 13:43 13:43 Standard ms3 ms3 13:43 13:43 ms3 ms3 13:43 13:43 Chest pain, unspecified ms3 ms3
[2022-12-21 16:24] VITALS: TEMP 97.9
[2022-12-21 16:26] VITALS: BP 118/75; O2SAT 98
== END 2022-12-21 15:54 | disposition home or self-care (01) ==
LOC: ER 12:36
DX: M62.830 Muscle spasm of back (principal); I10 Essential (primary) hypertension; Z87.442 Personal history of urinary calculi; Z88.5 Allergy status to narcotic agent
CPT/HCPCS: 96361; 85025; 36415; 80053; 74176; 96374; 99284; J2405; J7030

== ENCOUNTER 2023-02-12 18:18 | Emergency (ER) | payer BC ==
--- OUTSIDE RECORDS SUMMARY | 2023-02-12 18:34 | XMS REPORT | Continuity of Care Document ---
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 742-7) EOS x10^3 (test code = 0.53 10*3/uL 0.06-0.53 711-2) BASO x10^3 (test code 0.05 10*3/uL 0.01-0.09 = 704-7) Lab Interpretation Abnormal (test code = 42693-8) [facility], [id number] 13:50:47NORMAL CULTURE, URINE SPECIMEN NUMBER: [id number] SPECIMEN COMMENT: URINE SOURCE: URINE REPORT STATUS: FINAL FINAL REPORT: 07/06/2021 <10,000 CFU/ML UROGENITAL DAKSHA PRESENT NO COMMON PATHOGENSCT/NG, NAAT, [id number] 19:10:54 Test Item Value Reference Range Interpretation Comments GONORRHEA, NAAT NEGATIVE NEGATIVE IMPORTA NT NOTICE: SEE (test code = [place] [address]) [email or web address] TyrogenexKit Note: Assay methodology is nucleic acid amplification b y head of data m ediated amplification ( TMA) utilizing the A ptima Combo 2 Assay. CHLAMYDIA, NAAT NEGATIVE NEGATIVE IMPORTA NT NOTICE: SEE (test code = [place] [address]) [email or web address] TianKe Information TechnologysUrineKit Note: Assay methodology is nucleic acid amplification b y head of data m ediated amplification ( TMA) utilizing the A ptima Combo 2 Assay. UNLESS OTHERWISE INDICATED, ALL TESTING PERFORMED [facility] [address] [place] [id number] MICHEAL SHEPARD DIRECTOR: LIZA RICHEY M.D. CLIA NUMBER [id number] CAP ACCREDITATION N O. [id number]"
--- NOTE | 2023-02-12 19:28 | ER ---
Nurse's Notes [facility] Name: Tim Burgos Age: 42 yrs Sex: Male : 1980 Arrival Date: 02/12/2023 Time: 18:18 Bed IW1 Private MD: Diagnosis: SARS-associated coronavirus as the cause of diseases classified elsewhere Presentation: 02/12 18:51 Chief complaint: Patient states: c/o productive cough w/green phlegm and headache that me1 started 2 days ago. Coronavirus screen: Vaccine status: Patient reports being unvaccinated. Ebola Screen: No symptoms or risks identified at this time. Initial Sepsis Screen: Does the patient meet any 2 criteria? No. Patient's initial sepsis screen is negative. Does the patient have a suspected source of infection? No. Patient's initial sepsis screen is negative. Risk Assessment: Do you want to hurt yourself or someone else? Patient reports no desire to harm self or others. Onset of symptoms was February 10, 2023. 18:51 Method Of Arrival: Ambulatory me1 18:51 Acuity: CONNOR 4 me1 Historical: - Allergies: 18:55 Tramadol HCl; me1 - PMHx: 18:55 diabetes mellitus; Hypercholesterolemia; Hypertensive disorder; Kidney stones; me1 - PSHx: 18:55 Kidney stent and removal; me1 - Immunization history:: Adult Immunizations unknown. - Social history:: Smoking status: Patient reports use of chewing tobacco. Screenin:30 [facility] ED Fall Risk Assessment (Adult) History of falling in the last 3 months, me1 including since admission No falls in past 3 months (0 pts) Confusion or Disorientation No (0 pts) Intoxicated or Sedated No (0 pts) Impaired Gait No (0 pts) Mobility Assist Device Used No (0 pt) Altered Elimination No (0 pt) Score/Fall Risk Level 0 - 2 = Low Risk. Abuse screen: Denies threats or abuse. Nutritional screening: No deficits noted. Tuberculosis screening: No symptoms or risk factors identified. Assessment: 19:30 General: Appears uncomfortable, Behavior is calm, cooperative, appropriate for age. me1 Pain: Denies pain. Pain: Denies pain. Complains of pain in head Pain does not radiate. Pain currently is 3 out of 10 on a pain scale. Quality of pain is described as aching, Pain began gradually, 1 day ago. Is continuous. Neuro: Level of Consciousness is awake, alert, obeys commands, Oriented to person, place, time. Cardiovascular: Capillary refill < 3 seconds Patient's skin is warm and dry. Respiratory: Reports cough that is productive, Airway is patent Respiratory effort is even, unlabored, Respiratory pattern is regular, symmetrical. Vital Signs: 18:51 BP 124 / 96; Pulse 100; Resp 18; Temp 98.8(TE); Pulse Ox 98% on R/A; Weight 76.2 kg; me1 Height 5 ft. 2 in. ; Pain 3/10; 18:51 Body Mass Index 30.73 (76.20 kg, 157.48 cm) me1 18:51 Pain Scale: Adult me1 ED Course: 18:21 Patient arrived in ED. mr 18:21 Lizbeth Walker FNP-C is [facility]. kb 18:21 Zakiya Venegas MD is Attending Physician. kb 18:55 Triage completed. me1 18:55 Arm band placed on Patient placed in waiting room. me1 19:30 Patient has correct armband on for positive identification. Provided Education on: POC. me1 Verbalized understanding. . 19:30 No provider procedures requiring assistance completed. Patient did not have IV access me1 during this emergency room visit. Administered Medications: No medications were administered Medication: 19:30 VIS not applicable for this client. me1 Outcome: 19:28 Discharge ordered by MD. kb 19:31 Discharged to home ambulatory, me1 19:31 Condition: stable 19:31 Discharge instructions given to patient, Instructed on discharge instructions, follow up and referral plans. Demonstrated understanding of instructions, follow-up care, 19:32 Patient left the ED. me1 Signatures: Lizbeth Walker FNP-C FNP-Anna You, Reg Reg mr Radha Ferrera, RN RN me1
--- NOTE | 2023-02-12 19:28 | EDPHYS ---
Physician Documentation [facility] Name: Tim Burgos Age: 42 yrs Sex: Male : 1980 Arrival Date: 02/12/2023 Time: 18:18 Bed IW1 Private MD: ED Physician Zakiya Venegas HPI: 02/12 18:58 This 42 yrs old Male presents to ER via Ambulatory with complaints of Covid test. kb 18:58 The patient or guardian reports cough. Onset: The symptoms/episode began/occurred 2 kb day(s) ago. Severity of symptoms: At their worst the symptoms were moderate, in the emergency department the symptoms are unchanged. Modifying factors: The symptoms are alleviated by nothing, the symptoms are aggravated by nothing. Associated signs and symptoms: The patient has no apparent associated signs or symptoms. The patient has not experienced similar symptoms in the past. The patient has not recently seen a physician. Pt reports he was exposed to covid one week ago and has had a cough for 2 days so he came to be tested. Denies fever, shortness of breath. Historical: - Allergies: 18:55 Tramadol HCl; me1 - PMHx: 18:55 diabetes mellitus; Hypercholesterolemia; Hypertensive disorder; Kidney stones; me1 - PSHx: 18:55 Kidney stent and removal; me1 - Immunization history:: Adult Immunizations unknown. - Social history:: Smoking status: Patient reports use of chewing tobacco. ROS: 18:56 Constitutional: Negative for fever, chills, and weight loss, kb 18:56 Respiratory: Positive for cough, 18:56 All other systems are negative, Exam: 18:56 Constitutional: This is a well developed, well nourished patient who is awake, alert, kb and in no acute distress. Head/Face: Normocephalic, atraumatic. ENT: Moist Mucous membranes Cardiovascular: Regular rate Respiratory: Respirations even and unlabored. No increased work of breathing. Talking in full sentences Skin: Warm, dry with normal turgor. Normal color. MS/ Extremity: Pulses equal, no cyanosis. Neurovascular intact. Full, normal range of motion. Neuro: Awake and alert, GCS 15, oriented to person, place, time, and situation. Moves all extremities. Normal gait. Vital Signs: 18:51 BP 124 / 96; Pulse 100; Resp 18; Temp 98.8(TE); Pulse Ox 98% on R/A; Weight 76.2 kg; me1 Height 5 ft. 2 in. ; Pain 3/10; 18:51 Body Mass Index 30.73 (76.20 kg, 157.48 cm) me1 18:51 Pain Scale: Adult me1 MDM: 18:21 Patient medically screened. kb 18:57 Differential Diagnosis: Bronchitis Influenza Upper Respiratory Infection Viral Syndrome kb Pneumonia Other covid. Data reviewed: vital signs, nurses notes. Test considered but Not performed: X-ray: chest x-ray considered, but lungs are clear bilaterally, resp even and unlabored. oxygen sat 98% on room air. 19:26 Counseling: I had a detailed discussion with the patient and/or guardian regarding the kb historical points, exam findings, and any diagnostic results supporting the discharge/admit diagnosis, lab results, the need for outpatient follow up, a family practitioner, to return to the emergency department if symptoms worsen or persist or if there are any questions or concerns that arise at home. 02/12 18:27 Order name: SARS-COV-2 RT PCR; Complete Time: 19:27 kb 02/12 18:29 Order name: Flu; Complete Time: 19:17 kb Administered Medications: No medications were administered Disposition Summary: 02/12/23 19:28 Discharge Ordered Notes: Location: Home kb Condition: Stable kb Diagnosis - SARS-associated coronavirus as the cause of diseases classified elsewhere kb Followup: kb - With: Private Physician - When: 2 - 3 days - Reason: Recheck today's complaints, Continuance of care, Re-evaluation by your physician Followup: kb - With: Emergency Department - When: As needed - Reason: Worsening of condition Discharge Instructions: - Discharge Summary Sheet kb - COVID-19 kb - Viral Illness, Adult kb Forms: - Medication Reconciliation Form kb - Thank You Letter kb - Antibiotic Education kb - Prescription Opioid Use kb - Patient Portal Instructions kb - Leadership Thank You Letter kb Signatures: Dispatcher [employer] Lizbeth Benavidez, SHELLIE-C SHELLIE-Radha Crowder, RN RN me1
[2023-02-12 21:03] VITALS: BP 124/96; TEMP 98.8; O2SAT 98
== END 2023-02-12 19:32 | disposition home or self-care (01) ==
LOC: ER 18:18
DX: U07.1 COVID-19 (principal); F17.220 Nicotine dependence, chewing tobacco, uncomplicated; Z88.5 Allergy status to narcotic agent
CPT/HCPCS: 87635; 87804

== ENCOUNTER → 2023-05-23 | Emergency (ER) | payer BC ==
[~2023-05-23] MED LIST: KETOROLAC 30 MG/ML INJ ONE; MAGNESIUM SULFATE 1 gm IVPB 1 GM/100 ML BAG IV ONE; MORPHINE 4 MG/ML SYR ONE; NA CHLORIDE 0.9% 1,000 ML ONE; ONDANSETRON 4 MG/2 ML VIAL ONE; TAMSULOSIN 0.4 MG SR CAP ONE
--- OUTSIDE RECORDS SUMMARY | 2023-05-23 14:38 | XMS REPORT | Continuity of Care Document ---
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 135-145 K (test code = 0572860483) 4.1 mmol/L 3.5-5.0 CL (test code = 2125789866) 102 mmol/L 98-108 CO2 TOTAL (test code = 7335952019) 24 mmol/L 23-31 AGAP (test code = 3378799366) 2-16 BUN (test code = 9277970214) 13 mg/dL 7-23 GLUCOSE (test code = 6752157902) 116 mg/dL 70-110 H CREATININE (test code = 5521862889) 0.77 mg/dL 0.60-1.25 TOTAL BILI (test code = 8284433572) 0.5 mg/dL 0.1-1.1 CALCIUM (test code = 5627159632) 8.9 mg/dL 8.6-10.6 T PROTEIN (test code = 2736254511) 7.5 g/dL 6.3-8.2 ALBUMIN (test code = 4293254186) 4.3 g/dL 3.5-5.0 ALK PHOS (test code = 1143550609) 94 U/L 34-122 ALTv (test code = 1742-6) 48 U/L 5-50 AST(SGOT) (test code = 0325020164) 38 U/L 13-40 eGFR (test code = 8200586144) mL/min/1.73m2 MANUEL (test code = MANUEL) Association [...] imaging tests). Lab Interpretation (test code = 85298-1) Abnormal [facility] WITH [id number] 03:08:02* Test Item Value Reference Range Interpretation Comme nts WBC (test code = 6690-2) See_Comment [Automated [employer]] The system which generated this result transmitted reference range: 4.20 - 10.70 10*3/?L. The reference range was not used to interpret this result as normal/abnormal. RBC (test code = 789-8) See_Comment [Automated [employer]] The system which generated this result transmitted reference range: 4.26 - 5.52 10*6/?L. The reference range was not used to interpret this result as normal/abnormal. HGB (test code = 718-7) 14.5 g/dL 12.2-16.4 HCT (test code = 4544-3) 42.7 % 38.4-49.3 MCV (test code = 787-2) 90.3 fL 81.7-95.6 MCH (test code = 785-6) 30.7 pg 26.1-32.7 MCHC (test code = 786-4) 34.0 g/dL 31.2-35.0 RDW-SD (test code = 43679-7) 42.2 fL 38.5-51.6 RDW-CV (test code = 788-0) 12.6 % 12.1-15.4 PLT (test code = 777-3) See_Comment [Automated Musea ge] The system which generated this result transmitted reference range: 150 - 328 10*3/?L. The reference range was not used to interpret this result as normal/abnormal. MPV (test code = 48860-7) 10.0 fL 9.8-13.0 NRBC/100 WBC (test code = 9968025673) See_Comment [Automated [employer] ssage] The system which generated this result transmitted reference range: 0.0 - 10.0 /100 WBCs. The reference range was not used to interpret this result as normal/abnormal. NRBC x10^3 (test code = 9825136689) <0.01 See_Comment [Automated Muse[employer] ge] The system which generated this result transmitted reference range: 10*3/?L. The reference range was not used to interpret this result as normal/abnormal. GRAN MAT (NEUT) % (test code = 770-8) 69.4 % IMM GRAN % (test code = 0174428293) 0.40 % LYMPH % (test code = 736-9) 17.6 % MONO % (test code = 5905-5) 7.1 % EOS % (test code = 713-8) 5.0 % BASO % (test code = 706-2) 0.5 % GRAN MAT x10^3(ANC) (test code = 1381831266) 7.36 10*3/uL 1.99-6.95 H IMM GRAN x10^3 (test code = 2979847681) 0.04 10*3/uL 0.00-0.06 LYMPH x10^3 (test code = 731-0) 1.87 10*3/uL 1.09-3.23 MONO x10^3 (test code = 742-7) 0.75 10*3/uL 0.36-1.02 EOS x10^3 (test code = 711-2) 0.53 10*3/uL 0.06-0.53 BASO x10^3 (test code = 704-7) 0.05 10*3/uL 0.01-0.09 Lab Interpretation (test code = 01017-3) Abnormal [facility] CenterCULTURE, [id number] 13:50:47NORMAL CULTURE, URINE SPECIMEN NUMBER: [id number] SPECIMEN COMMENT: URINE SOURCE: URINE REPORT STATUS: FINAL FINAL REPORT: 07/06/2021 <10,000 CFU/ML UROGENITAL DAKSHA PRESENT NO COMMON PATHOGENSCT/NG, NAAT, [id number] 19:10:54* Test Item Value Reference Range Interpretation Comme nts GONORRHEA, NAAT (test code = 90032) NEGATIVE NEGATIVE IMPORTANT NO VALENTINA: SEE ANNOUNCEMENT AT [email or web address] Note: Assay methodology is nucleic acid amplification by expedition supervisor mediated amplification (TMA) utilizing the Aptima Combo 2 Assay. CHLAMYDIA, NAAT (test code = 80710) NEGATIVE NEGATIVE IMPORTANT NO VALENTINA: SEE ANNOUNCEMENT AT [email or web address] Note: Assay methodology is nucleic acid amplification by expedition supervisor mediated amplification (TMA) utilizing the Aptima Combo 2 Assay. UNLESS OTHERWISE INDICATED, ALL TESTING PERFORMED ATCL[facility], [facility] [address] [place] [id number] LEHR LOADER: LIZA RICHEY M.D. CLIA NUMBER [id number] [place]. [id number]"
[2023-05-23 16:13] LABS: Absolute Lymphocytes (CBC) 1.3 K/uL (0.7-4.9); Hematocrit 49.3 % (39.6-49.0); Lymphocytes % 21.9 % (15.3-44.8); MCV 90.4 fL (80-100); MPV 8.2 fL (7.6-11.3); Platelets 256 thou/uL (152-406); RBC Red Blood Cell Count 5.45 M/uL (4.33-5.43)
[2023-05-23 16:37] LABS: Albumin 3.9 g/dL (3.4-5.0); Bilirubin Total 0.3 mg/dL (0.2-1.0); Potassium 4.2 mEq/L (3.5-5.1); Protein, Total 7.7 g/dL (6.4-8.2)
[2023-05-23 16:49] LABS: SARS-COV-2 RT PCR NEGATIVE (NEGATIVE)
--- NOTE | 2023-05-23 17:12 | RAD REPORT ---
EXAM DESCRIPTION: CTAbdomen Pelvis W Contrast - 05/23/2023 5:02 pm CLINICAL HISTORY: Abdominal pain. diarrhea;Abd pain COMPARISON: No comparisons TECHNIQUE: Biphasic CT imaging of the abdomen and pelvis was performed with 100 ml non-ionic IV cont rast. All CT scans are performed using dose optimization technique as appropriate and may include automated exposure control or mA/KV adjustment according to patient size. FINDINGS: The lung bases are clear. The liver demonstrates diffuse fatty liver. The spleen, pancreas, adrenal glands and right kidney are within normal limits. 4-5 mm stone present at the left UPJ with mild left hydronephrosis. Additional small caliceal stone inferior calyx left kidney. No bowel obstruction, free air, free fluid or abscess. Rectum appears incompletely distended and not fully assessed by CT. The appendix is normal. No evidence of significant lymphadenopathy. No suspicious bony findings. IMPRESSION: 4-5 mm stone left UPJ with mild left hydronephrosis. Small stone also present inferior c humza left kidney.
--- NOTE | 2023-05-23 17:42 | ER ---
Nurse's Notes [facility] Name: Tim Burgos Age: 42 yrs Sex: Male : 1980 Arrival Date: 05/23/2023 Time: 14:35 Bed 10 Private MD: Diagnosis: Diarrhea, unspecified;Calculus of ureter Presentation: 05/23 14:57 Chief complaint: Patient states: Abdominal pain and diarrhea onset Sunday. Pt states cm10 that the abdominal pain began first. Coronavirus screen: Vaccine status: Patient reports being unvaccinated. Client denies travel out of the [place] in the last 14 days. Ebola Screen: Patient denies travel to an Ebola-affected area in the 21 days before illness onset. No symptoms or risks identified at this time. Initial Sepsis Screen: Does the patient meet any 2 criteria? No. Patient's initial sepsis screen is negative. Does the patient have a suspected source of infection? No. Patient's initial sepsis screen is negative. Risk Assessment: Do you want to hurt yourself or someone else? Patient reports no desire to harm self or others. Onset of symptoms was May 23, 2023. 14:57 Method Of Arrival: Ambulatory cm10 14:57 Acuity: CONNOR 3 cm10 Triage Assessment: 16:06 General: Appears in no apparent distress. comfortable, Behavior is calm, cooperative. cm10 Pain: Complains of pain in abdomen. Neuro: No deficits noted. Level of Consciousness is awake, alert, obeys commands, Oriented to person, place, time, situation. Cardiovascular: No deficits noted. Patient's skin is warm and dry. Respiratory: No deficits noted. Airway is patent Respiratory effort is even, unlabored, Respiratory pattern is regular, symmetrical. GI: No deficits noted. Abdomen is round Reports lower abdominal pain, upper abdominal pain, diarrhea. : No deficits noted. No signs and/or symptoms were reported regarding the genitourinary system. Derm: No deficits noted. No signs and/or symptoms reported regarding the dermatologic system. Skin is intact, Skin is pink, warm \T\ dry. Musculoskeletal: No deficits noted. Range of motion: intact in all extremities. Historical: - Allergies: 14:59 Tramadol HCl (Upset stomach); cm10 - PMHx: 14:59 diabetes mellitus; Hypercholesterolemia; Hypertensive disorder; Kidney stones; cm10 - PSHx: 14:59 Kidney stent and removal; cm10 - Immunization history:: Adult Immunizations unknown. - Social history:: Smoking status: Patient reports use of chewing tobacco. - Family history:: not pertinent. - Hospitalizations: : No recent hospitalization is reported. Screenin:07 [facility] ED Fall Risk Assessment (Adult) History of falling in the last 3 months, cm10 including since admission No falls in past 3 months (0 pts) Confusion or Disorientation No (0 pts) Intoxicated or Sedated No (0 pts) Impaired Gait No (0 pts) Mobility Assist Device Used No (0 pt) Altered Elimination No (0 pt) Score/Fall Risk Level 0 - 2 = Low Risk Oriented to surroundings, Maintained a safe environment, Hourly rounding (assess needs \T\ fall precautionary measures) done. Abuse screen: Denies threats or abuse. Denies injuries from another. Nutritional screening: No deficits noted. Tuberculosis screening: No symptoms or risk factors identified. Assessment: 16:08 GI: Bowel sounds present X 4 quads. Abd is soft. cm10 Vital Signs: 14:57 BP 127 / 94; Pulse 96; Resp 18; Temp 98.6; Pulse Ox 98% on R/A; Weight 74.84 kg; Height cm10 5 ft. 2 in. ; Pain 7/10; 16:06 BP 126 / 98; Pulse 88; Resp 18; Pulse Ox 100% on R/A; tl4 17:38 BP 147 / 96; Pulse 87; Resp 18; Pulse Ox 100% on R/A; tl4 18:00 BP 113 / 85; Pulse 88; Resp 18; Pulse Ox 99% on R/A; tl4 18:31 BP 118 / 97; Pulse 91; Resp 18; Pulse Ox 97% on R/A; tl4 14:57 Body Mass Index 30.18 (74.84 kg, 157.48 cm) cm10 14:57 Pain Scale: Adult cm10 ED Course: 14:37 Patient arrived in ED. mr 14:38 Dawson Jones MD is Attending Physician. rn 14:59 Triage completed. cm10 15:00 Arm band placed on Patient placed in waiting room. cm10 15:52 Kvng Lobo is Primary Nurse. tl4 16:05 CBC with Diff Sent. cm10 16:05 CMP Sent. cm10 16:05 Lipase Sent. cm10 16:05 COVID-19/FLU A+B/RSV Sent. cm10 16:07 Patient has correct armband on for positive identification. Bed in low position. Call cm10 light in reach. Side rails up X2. Provided Education on: ER process and procedures. . 16:08 No provider procedures requiring assistance completed. Initial lab(s) drawn, by me, cm10 sent to lab. Inserted saline lock: 20 gauge in left antecubital area, using aseptic technique. Blood collected. 17:04 CT Abd/Pelvis - IV Contrast Only In Process Unspecified. EDMS 19:35 IV discontinued, intact, bleeding controlled, No redness/swelling at site. Pressure tl4 dressing applied. Administered Medications: 16:05 Drug: NS 0.9% IV 1000 ml IV at 1 bolus Per protocol; 1000 mL bolus Route: IV; Rate: 1 cm10 bolus; Site: left antecubital; 17:44 Follow up: Response: No adverse reaction; IV Status: Completed infusion; IV Intake: tl4 1000ml 16:05 Drug: Ondansetron IVP 4 mg IVP once; over 2 minutes Route: IVP; Site: left antecubital; cm10 17:44 Follow up: Response: Nausea is decreased tl4 16:05 Drug: morphine IVP or IV 4 mg IVP once over 4 mins Route: IVP; Infused Over: 4 mins; cm10 Site: left antecubital; 17:44 Follow up: Response: Pain is decreased tl4 17:42 Drug: Flomax PO 0.4 mg PO once Route: PO; tl4 19:33 Follow up: Response: No adverse reaction tl4 17:43 Drug: Ketorolac IVP 30 mg IVP once Route: IVP; Site: left antecubital; tl4 19:34 Follow up: Response: No adverse reaction tl4 17:43 Drug: Magnesium Sulfate IVPB 1 grams IVPB once over 1 hrs Route: IVPB; Rate: 100 ml/hr; tl4 Infused Over: 1 hrs; Site: left antecubital; Delivery: Dial-a-flow; 19:33 Follow up: Response: No adverse reaction; IV Status: Completed infusion; IV Intake: tl4 100ml Medication: 16:07 VIS not applicable for this client. cm10 Intake: 17:44 IV: 1000ml; Total: 1000ml. tl4 19:33 IV: 100ml; Total: 1100ml. tl4 Outcome: 17:42 Discharge ordered by . rn 19:35 Discharged to home ambulatory, tl4 19:35 Condition: stable 19:35 Discharge instructions given to patient, Instructed on discharge instructions, follow up and referral plans. medication usage, Demonstrated understanding of instructions, follow-up care, medications, 19:38 Patient left the ED. tl4 Signatures: Dispatcher [employer] EDSC Anna Garcia, Reg Reg Dawson Manriquez MD MD rn Martinez, Clarissa, RN RN cm10 LogKvng power tl4
--- NOTE | 2023-05-23 17:42 | EDPHYS ---
Physician Documentation [facility] Name: Tim Burgos Age: 42 yrs Sex: Male : 1980 Arrival Date: 05/23/2023 Time: 14:35 Bed 10 Private MD: ED Physician Dawson Jones HPI: 05/23 16:15 This 42 yrs old Male presents to ER via Ambulatory with complaints of Abdominal Pain, rn Diarrhea. 16:15 The patient presents to the emergency department with diarrhea, abdominal pain. Onset: rn The symptoms/episode began/occurred 2 day(s) ago. Possible causes: unknown. The symptoms are aggravated by nothing. The symptoms are alleviated by nothing. Associated signs and symptoms: Pertinent positives: abdominal pain, nausea, Pertinent negatives: fever, GI bleeding. Severity of symptoms: At their worst the symptoms were moderate in the emergency department the symptoms are unchanged. The patient has not experienced similar symptoms in the past. The patient has not recently seen a physician. Patient reports mid abdominal pain and diarrhea that began 2 days ago. No fever. No vomiting. Eating okay but runs bathroom. No blood in stool. No chronic abdominal issues. No sick contacts.. Historical: - Allergies: 14:59 Tramadol HCl (Upset stomach); cm10 - PMHx: 14:59 diabetes mellitus; Hypercholesterolemia; Hypertensive disorder; Kidney stones; cm10 - PSHx: 14:59 Kidney stent and removal; cm10 - Immunization history:: Adult Immunizations unknown. - Social history:: Smoking status: Patient reports use of chewing tobacco. - Family history:: not pertinent. - Hospitalizations: : No recent hospitalization is reported. ROS: 16:15 Constitutional: Negative for fever, chills, and weight loss, Cardiovascular: Negative rn for chest pain, palpitations, and edema, Respiratory: Negative for shortness of breath, cough, wheezing, and pleuritic chest pain, Abdomen/GI: Positive for abdominal pain and diarrhea MS/Extremity: Negative for injury and deformity, Skin: Negative for injury, rash, and discoloration, Neuro: Positive for generalized weakness Exam: 16:15 Constitutional: This is a well developed, well nourished patient who is awake, alert, rn and in no acute distress. Ambulatory to room without difficulty or assistance Head/Face: Normocephalic, atraumatic. Cardiovascular: Regular rate and rhythm. No pulse deficits. Respiratory: No increased work of breathing, no retractions or nasal flaring. Abdomen/GI: Soft, mild mid abdominal tenderness without guarding or rebound Skin: Warm, dry Neuro: Awake and alert, GCS 15 Vital Signs: 14:57 BP 127 / 94; Pulse 96; Resp 18; Temp 98.6; Pulse Ox 98% on R/A; Weight 74.84 kg; Height cm10 5 ft. 2 in. ; Pain 7/10; 16:06 BP 126 / 98; Pulse 88; Resp 18; Pulse Ox 100% on R/A; tl4 17:38 BP 147 / 96; Pulse 87; Resp 18; Pulse Ox 100% on R/A; tl4 18:00 BP 113 / 85; Pulse 88; Resp 18; Pulse Ox 99% on R/A; tl4 18:31 BP 118 / 97; Pulse 91; Resp 18; Pulse Ox 97% on R/A; tl4 14:57 Body Mass Index 30.18 (74.84 kg, 157.48 cm) cm10 14:57 Pain Scale: Adult cm10 MDM: 14:38 Patient medically screened. rn 17:40 Differential diagnosis: Nonspecific abd pain, pancreatitis, appendicitis, rn diverticulitis, viral gastroenteritis, gastroenteritis. Data reviewed: vital signs, nurses notes, lab test result(s), radiologic studies, CT scan, and as a result, I will discharge patient. Counseling: I had a detailed discussion with the patient and/or guardian regarding the historical points, exam findings, and any diagnostic results supporting the discharge/admit diagnosis, lab results, radiology results, the need for outpatient follow up, to return to the emergency department if symptoms worsen or persist or if there are any questions or concerns that arise at home. Response to treatment: the patient's symptoms have mildly improved after treatment, and as a result, I will discharge patient. Special discussion: I discussed with the patient/guardian in detail that at this point there is no indication for admission to the hospital. It is understood, however, that if the symptoms persist or worsen the patient needs to return immediately for re-evaluation. ED course: Patient most likely with 2 problems. First is diarrhea and possible enteritis versus viral illness. CT does not show any evidence of colitis or indication for antibiotics or surgery. Patient also recently started passing kidney stone, history of kidney stones, has passed larger than the 1 today which is a little bigger than 4 mm. Pain has improved, no diarrhea while here in ER. Will discharge home with return precautions.. 05/23 14:59 Order name: CBC with Diff; Complete Time: 16:15 rn 05/23 14:59 Order name: CMP; Complete Time: 16:51 rn 05/23 14:59 Order name: Lipase; Complete Time: 16:51 rn 05/23 14:59 Order name: COVID-19/FLU A+B/RSV; Complete Time: 16:51 rn 05/23 14:59 Order name: CT Abd/Pelvis - IV Contrast Only; Complete Time: 17:13 rn 05/23 14:59 Order name: IV Saline Lock; Complete Time: 16:05 rn 05/23 14:59 Order name: Labs collected and sent; Complete Time: 16:05 rn Administered Medications: 16:05 Drug: NS 0.9% IV 1000 ml IV at 1 bolus Per protocol; 1000 mL bolus Route: IV; Rate: 1 cm10 bolus; Site: left antecubital; 17:44 Follow up: Response: No adverse reaction; IV Status: Completed infusion; IV Intake: tl4 1000ml 16:05 Drug: Ondansetron IVP 4 mg IVP once; over 2 minutes Route: IVP; Site: left antecubital; cm10 17:44 Follow up: Response: Nausea is decreased tl4 16:05 Drug: morphine IVP or IV 4 mg IVP once over 4 mins Route: IVP; Infused Over: 4 mins; cm10 Site: left antecubital; 17:44 Follow up: Response: Pain is decreased tl4 17:42 Drug: Flomax PO 0.4 mg PO once Route: PO; tl4 19:33 Follow up: Response: No adverse reaction tl4 17:43 Drug: Ketorolac IVP 30 mg IVP once Route: IVP; Site: left antecubital; tl4 19:34 Follow up: Response: No adverse reaction tl4 17:43 Drug: Magnesium Sulfate IVPB 1 grams IVPB once over 1 hrs Route: IVPB; Rate: 100 ml/hr; tl4 Infused Over: 1 hrs; Site: left antecubital; Delivery: Dial-a-flow; 19:33 Follow up: Response: No adverse reaction; IV Status: Completed infusion; IV Intake: tl4 100ml Disposition Summary: 05/23/23 17:42 Discharge Ordered Notes: Location: Home rn Problem: new rn Symptoms: have improved rn Condition: Stable rn Diagnosis - Diarrhea, unspecified rn - Calculus of ureter rn Followup: rn - With: Private Physician - When: As needed - Reason: Recheck today's complaints, Re-evaluation by your physician Discharge Instructions: - Discharge Summary Sheet rn - Diarrhea, Adult rn - Kidney Stones rn - Renal Colic rn Forms: - Medication Reconciliation Form rn - Thank You Letter rn - Antibiotic rn med surg - Prescription Opioid Use rn - Patient Portal Instructions rn - Leadership Thank You Letter rn - Work release form tl4 Prescriptions: - Flomax 0.4 mg Oral capsule - take 1 capsule ORAL route every 24 hours As needed Only take until you feel rn stone has passed; 10 capsule; Refills: 0, Product Selection Permitted - ondansetron 4 mg Oral Tablet,disintegrating - take 1 tablet ORAL route every 8 hours As needed; 10 tablet; Refills: 0, rn Product Selection Permitted - acetaminophen-codeine 300-30 mg Oral tablet - take 1 tablet ORAL route 3 times per day As needed; 15 tablet; Refills: 0, rn Product Selection Permitted - Cipro 500 mg Oral Tablet - take 1 tablet ORAL route every 12 hours for 7 days; 14 tablet; Refills: 0, rn Product Selection Permitted Signatures: Dispatcher [employer] Dawson Alexis MD MD rn Martinez, Clarissa, RN RN cm10 Logda, Kvng tl4
[2023-05-23 21:48] VITALS: TEMP 98.6
[2023-05-23 21:55] VITALS: BP 118/97; O2SAT 97
== END ==
LOC: ER 14:35
DX: N20.1 Calculus of ureter (principal); R19.7 Diarrhea, unspecified; Z87.442 Personal history of urinary calculi; Z11.52 Encounter for screening for COVID-19; Z88.5 Allergy status to narcotic agent
CPT/HCPCS: 85025; 36415; 83690; 80053; 0241U; 74177; Q9967; J3475; J2405; J7030

== ENCOUNTER 2023-09-05 17:09 | Emergency (ER) | payer BC ==
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
[2023-09-05] MEDS ORDERED: KETOROLAC 30 MG/ML INJ ONE (17:35)
[2023-09-05] MEDS ORDERED: ONDANSETRON 4 MG/2 ML VIAL ONE (17:35)
[2023-09-05] MEDS ORDERED: NA CHLORIDE 0.9% 1,000 ML ONE (17:36)
--- NOTE | 2023-09-05 17:53 | RAD REPORT ---
EXAM DESCRIPTION: CT - Stone Protocol - 09/05/2023 5:34 pm CLINICAL HISTORY: Abdominal pain. Left flank pain COMPARISON: 2022 TECHNIQUE: Computed axial tomography of the abdomen pelvis was obtained without oral or IV contrast. Lack of IV and oral contrast limits evaluation of solid organs, appendix, bowel, and vessels. Savage l reformatted images were obtained and reviewed. All CT scans are performed using dose optimization technique as appropriate and may include automated exposure control or mA/KV adjustment according to patient size. FINDINGS: 5 millimeter calculus left UVJ. Mild dilatation left ureter. Mild to moderate left hydrone phrosis. 3 millimeter nonobstructing calculus left kidney Tiny nonobstructing calculus right kidney. No right ureteral calculus Fatty liver The spleen, pancreas, and adrenals appear grossly normal. There is no evidence of diverticulitis. The appendix appears normal Tiny umbilical hernia IMPRESSION: 5 millimeter calculus left UVJ results in mild to moderate left hydronephrosis
[2023-09-05] MEDS ORDERED: TAMSULOSIN 0.4 MG SR CAP ONE (18:18)
[2023-09-05] MEDS ORDERED: MAGNESIUM SULFATE 1 gm IVPB 1 GM/100 ML BAG IV ONE (18:18)
[2023-09-05 18:58] LABS: Absolute Basophils 0.1 K/uL (0-0.5); Absolute Eosinophils 0.3 K/uL (0-0.5); Absolute Monocytes 0.9 K/uL (0.1-1.3); Absolute Neutrophil 7.1 K/uL (1.8-8.0); Basophils % 0.6 % (0-1.3); Eosinophils % 2.7 % (0-4.4); Hematocrit 42.2 % (39.6-49.0); Hemoglobin 14.1 g/dL (13.6-17.9); Lymphocytes % 19.1 % (15.3-44.8); MCH 30.6 pg (27.0-35.0); MCHC 33.5 g/dL (32.0-36.0); MCV 91.3 fL (80-100); MPV 8.3 fL (7.6-11.3); Monocytes % 8.9 % (3.3-12.3); Neutrophils % 68.7 % (41.7-73.7); Nucleated Red Blood Cells % 0.1 % (0-0); Platelets 321 thou/uL (152-406); RBC Red Blood Cell Count 4.62 M/uL (4.33-5.43); Red Cell Distribution Width 16.1 % (12.1-15.2)
[2023-09-05 19:15] LABS: Albumin 3.8 g/dL (3.4-5.0); Albumin/Globulin Ratio 1.2 (1.1-1.8); Bilirubin Total 0.4 mg/dL (0.2-1.0); Globulin 3.2 g/dL (2.3-3.5)
[2023-09-05] MEDS ORDERED: MORPHINE 4 MG/ML SYR ONE (19:38)
[2023-09-05 20:10] LABS: Specific Gravity 1.006 (1.005-1.030); Sqamous Epithelial None Seen /HPF (None Seen); Urine Bacteria <20 /HPF (<20); Urine Bilirubin NEGATIVE (Negative); Urine Blood 1+ (Negative); Urine Clarity Clear (Clear); Urine Color Colorless (Yellow); Urine Culture Reflex Order NOT NEEDED; Urine Glucose NEGATIVE (Negative); Urine Ketones NEGATIVE (Negative); Urine Microscopic Reflex YN ORDER UMIC; Urine Mucus Slight /HPF (None Seen); Urine Nitrite NEGATIVE (Negative); Urine Protein NEGATIVE (Negative); Urine RBC <5 /HPF (None Seen); Urine Urobilinogen Normal (Normal); Urine WBC <5 /HPF (<5); Urine pH 7.5 (5.0-7.0)
--- NOTE | 2023-09-05 20:12 | ER ---
Nurse's Notes [facility] Name: Tim Burgos Age: 42 yrs Sex: Male : 1980 Arrival Date: 09/05/2023 Time: 17:09 Bed 20 Private MD: Fina Denis Diagnosis: Calculus of kidney with calculus of ureter Presentation: 09/04 17:13 Chief complaint: Patient states: Left flank pain since yesterday, dysuria. Has had nj1 kidney stones in the past. 17:13 Coronavirus screen: Vaccine status: Patient reports being unvaccinated. Ebola Screen: nj1 Patient denies travel to an Ebola-affected area in the 21 days before illness onset. Initial Sepsis Screen: Does the patient meet any 2 criteria? No. Patient's initial sepsis screen is negative. Does the patient have a suspected source of infection? No. Patient's initial sepsis screen is negative. Risk Assessment: Do you want to hurt yourself or someone else? Patient reports no desire to harm self or others. Onset of symptoms was September 04, 2023. 17:13 Method Of Arrival: Ambulatory banner 17:13 Acuity: CONNOR 3 nj1 Historical: - Allergies: 17:19 Tramadol HCl (Upset stomach); nj1 - PMHx: 17:19 diabetes mellitus; Hypercholesterolemia; Hypertensive disorder; Kidney stones; nj1 - PSHx: 17:19 Kidney stent and removal; nj1 - Immunization history:: Client reports having NOT received the Covid vaccine. - Infectious Disease History:: Denies. - Social history:: Smoking status: Patient reports use of chewing tobacco. Screenin:21 [facility] ED Fall Risk Assessment (Adult) History of falling in the last 3 months, as6 including since admission No falls in past 3 months (0 pts) Confusion or Disorientation No (0 pts) Intoxicated or Sedated No (0 pts) Impaired Gait No (0 pts) Mobility Assist Device Used No (0 pt) Altered Elimination No (0 pt) Score/Fall Risk Level 0 - 2 = Low Risk Oriented to surroundings, Maintained a safe environment, Educated pt \T\ family on fall prevention, incl call for assistance when getting out of bed. Abuse screen: Denies threats or abuse. Denies injuries from another. Nutritional screening: No deficits noted. Tuberculosis screening: No symptoms or risk factors identified. Assessment: 18:00 General: Appears uncomfortable, Behavior is calm, cooperative. Pain: Complains of pain as6 in left flank. Neuro: Level of Consciousness is awake, alert, obeys commands, Oriented to person, place, time, situation. Cardiovascular: Capillary refill < 3 seconds Patient's skin is warm and dry. Respiratory: Respiratory effort is even, unlabored, Respiratory pattern is regular, symmetrical. GI: No deficits noted. No signs and/or symptoms were reported involving the gastrointestinal system. : Reports burning with urination, pain in left flank(s). EENT: No deficits noted. No signs and/or symptoms were reported regarding the EENT system. Derm: Skin is intact, is healthy with good turgor. Musculoskeletal: Circulation, motion, and sensation intact. 19:44 Reassessment: Patient appears in no apparent distress at this time. Patient and/or as6 family updated on plan of care and expected duration. Pain level reassessed. Patient is alert, oriented x 3, equal unlabored respirations, skin warm/dry/pink. Vital Signs: 17:13 BP 139 / 94; Pulse 86; Resp 18; Temp 98.2(O); Pulse Ox 98% on R/A; Weight 69.85 kg; nj1 Height 5 ft. 1 in. ; Pain 10/10; 19:44 BP 124 / 100; Pulse 85; Resp 18 S; Pulse Ox 99% on R/A; as6 17:13 Body Mass Index 29.10 (69.85 kg, 154.94 cm) nj1 17:13 Pain Scale: Adult nj ED Course: 17:12 Patient arrived in ED. mr 17:12 Fina Denis is Private Physician. mr 17:13 Liz[facility]C [facility] kb 17:13 Elbert Meredith MD is Attending Physician. kb 17:19 Triage completed. nj1 17:20 Arm band placed on. nj1 17:20 Client placed on continuous cardiac and pulse oximetry monitoring. NIBP monitoring nj1 applied. 17:20 Patient has correct armband on for positive identification. Bed in low position. Call nj1 light in reach. Provided Education on: call light, fall precautions. 17:21 Adolfo Yanez, DEVIN is Primary Nurse. as6 17:36 CT Stone Protocol In Process Unspecified. EDMS 17:43 Inserted saline lock: 22 gauge in left antecubital area, using aseptic technique. Blood nj1 collected. 20:21 No provider procedures requiring assistance completed. IV discontinued, intact, as6 bleeding controlled, No redness/swelling at site. Pressure dressing applied. Administered Medications: 17:45 Drug: NS 0.9% IV 1000 ml IV at 1 bolus Per protocol; 1000 mL bolus Route: IV; Rate: 1 nj1 bolus; Site: left antecubital; 20:20 Follow up: Response: No adverse reaction; IV Status: Completed infusion; IV Intake: as6 1000ml 17:45 Drug: Ondansetron IVP 4 mg IVP once; over 2 minutes Route: IVP; Site: left antecubital; nj1 20:20 Follow up: Response: No adverse reaction as6 17:47 Drug: TORadol - Ketorolac IVP 15 mg IVP once Route: IVP; Site: left antecubital; nj1 20:20 Follow up: Response: No adverse reaction as6 18:20 Drug: Flomax PO 0.4 mg PO once Route: PO; as6 20:21 Follow up: Response: No adverse reaction as6 18:21 Drug: Magnesium Sulfate IVPB 1 grams IVPB once over 30 mins Route: IVPB; Infused Over: as6 30 mins; Site: left antecubital; 20:21 Follow up: Response: No adverse reaction; IV Status: Completed infusion; IV Intake: as6 100ml 19:43 Drug: morphine IVP or IV 4 mg IVP once over 4 mins Route: IVP; Infused Over: 4 mins; as6 Site: left antecubital; 20:21 Follow up: Response: No adverse reaction as6 20:20 Drug: [place] PO 10 mg-325 mg 1 tabs PO once Route: PO; as6 20:21 Follow up: Response: No adverse reaction as6 Medication: 20:21 VIS not applicable for this client. as6 Intake: 20:20 IV: 1000ml; Total: 1000ml. as6 20:21 IV: 100ml; Total: 1100ml. as6 Outcome: 20:11 Discharge ordered by MD. arevalo 20:22 Discharged to home ambulatory, as6 20:22 Condition: stable 20:22 Discharge instructions given to patient, Instructed on discharge instructions, follow up and referral plans. medication usage, Demonstrated understanding of instructions, follow-up care, medications, Prescriptions given X 2, 20:22 Patient left the ED. as6 Signatures: Dispatcher [employer] EDLizbeth Soria, SHELLIE-C CIRCULATION MAN-Anna You, Reg Reg AguilarbritneyAdolfo, RN RN as6 Scarlett Nair RN RN nj1
--- NOTE | 2023-09-05 20:12 | EDPHYS ---
Physician Documentation [facility] Name: Tim Burgos Age: 42 yrs Sex: Male : 1980 Arrival Date: 09/05/2023 Time: 17:09 Bed 20 Private MD: Fina Denis ED Physician Elbert Meredith HPI: 09/04 19:01 This 42 yrs old Male presents to ER via Ambulatory with complaints of Possible Kidney kb Stone. 19:02 Pt is a 42 year old male who presents for left flank pain that started yesterday. kb Reports nausea. Denies vomiting, diarrhea, urinary symptoms, fever. . Historical: - Allergies: 17:19 Tramadol HCl (Upset stomach); nj1 - PMHx: 17:19 diabetes mellitus; Hypercholesterolemia; Hypertensive disorder; Kidney stones; nj1 - PSHx: 17:19 Kidney stent and removal; nj1 - Immunization history:: Client reports having NOT received the Covid vaccine. - Infectious Disease History:: Denies. - Social history:: Smoking status: Patient reports use of chewing tobacco. ROS: 19:02 Constitutional: As per HPI kb Exam: 19:02 Constitutional: This is a well developed, well nourished patient who is awake, alert, kb and in no acute distress. Head/Face: Normocephalic, atraumatic. ENT: Moist Mucous membranes Cardiovascular: Regular rate Respiratory: Respirations even and unlabored. No increased work of breathing. Talking in full sentences Abdomen/GI: Soft, non-tender. No distention Skin: Warm, dry with normal turgor. Normal color. MS/ Extremity: Pulses equal, no cyanosis. Neurovascular intact. Full, normal range of motion. Neuro: Awake and alert, GCS 15, oriented to person, place, time, and situation. Moves all extremities. Normal gait. 19:02 Back: CVA tenderness, that is mild, is noted on the left, Vital Signs: 17:13 BP 139 / 94; Pulse 86; Resp 18; Temp 98.2(O); Pulse Ox 98% on R/A; Weight 69.85 kg; nj1 Height 5 ft. 1 in. ; Pain 10/10; 19:44 BP 124 / 100; Pulse 85; Resp 18 S; Pulse Ox 99% on R/A; as6 17:13 Body Mass Index 29.10 (69.85 kg, 154.94 cm) nj1 17:13 Pain Scale: Adult nj1 MDM: 17:13 Patient medically screened. kb 19:03 Differential diagnosis: nephrolithiasis, pyelonephritis, UTI. Data reviewed: vital kb signs, nurses notes. 20:03 Counseling: I had a detailed discussion with the patient and/or guardian regarding the kb historical points, exam findings, and any diagnostic results supporting the discharge/admit diagnosis, lab results, radiology results, the need for outpatient follow up, a family practitioner, a urologist, to return to the emergency department if symptoms worsen or persist or if there are any questions or concerns that arise at home. 09/04 17:22 Order name: CBC with Diff; Complete Time: 19:10 kb 09/04 17:22 Order name: CMP; Complete Time: 19:25 kb 09/04 17:22 Order name: Lipase; Complete Time: 19:25 kb 09/04 17:22 Order name: Urinalysis w/ reflexes; Complete Time: 20:11 kb 09/04 17:22 Order name: CT Stone Protocol; Complete Time: 18:11 kb 09/04 17:22 Order name: IV Saline Lock; Complete Time: 17:49 kb 09/04 17:22 Order name: Labs collected and sent; Complete Time: 17:49 kb Administered Medications: 17:45 Drug: NS 0.9% IV 1000 ml IV at 1 bolus Per protocol; 1000 mL bolus Route: IV; Rate: 1 nj1 bolus; Site: left antecubital; 20:20 Follow up: Response: No adverse reaction; IV Status: Completed infusion; IV Intake: as6 1000ml 17:45 Drug: Ondansetron IVP 4 mg IVP once; over 2 minutes Route: IVP; Site: left antecubital; nj1 20:20 Follow up: Response: No adverse reaction as6 17:47 Drug: TORadol - Ketorolac IVP 15 mg IVP once Route: IVP; Site: left antecubital; nj1 20:20 Follow up: Response: No adverse reaction as6 18:20 Drug: Flomax PO 0.4 mg PO once Route: PO; as6 20:21 Follow up: Response: No adverse reaction as6 18:21 Drug: Magnesium Sulfate IVPB 1 grams IVPB once over 30 mins Route: IVPB; Infused Over: as6 30 mins; Site: left antecubital; 20:21 Follow up: Response: No adverse reaction; IV Status: Completed infusion; IV Intake: as6 100ml 19:43 Drug: morphine IVP or IV 4 mg IVP once over 4 mins Route: IVP; Infused Over: 4 mins; as6 Site: left antecubital; 20:21 Follow up: Response: No adverse reaction as6 20:20 Drug: [place] PO 10 mg-325 mg 1 tabs PO once Route: PO; as6 20:21 Follow up: Response: No adverse reaction as6 Disposition Summary: 09/05/23 20:11 Discharge Ordered Notes: Location: Home kb Condition: Stable kb Diagnosis - Calculus of kidney with calculus of ureter kb Followup: kb - With: Emergency Department - When: As needed - Reason: Worsening of condition Followup: kb - With: Private Physician - When: 2 - 3 days - Reason: Recheck today's complaints, Continuance of care, Re-evaluation by your physician Discharge Instructions: - Discharge Summary Sheet kb - Kidney Stones, [id number] kb - Dietary Guidelines to Help Prevent Kidney Stones kb Forms: - Medication Reconciliation Form kb - Thank You Letter kb - Antibiotic Education kb - Prescription Opioid Use kb - Patient Portal Instructions kb - Leadership Thank You Letter kb Prescriptions: - Zofran 4 mg Oral tablet - take 1 tablet ORAL route every 6 hours As needed; 12 tablet; Refills: 0, kb Product Selection Permitted - Diclofenac Sodium 75 mg Oral tablet, delayed release (enteric coated) - take 1 tablet ORAL route 2 times per day As needed; 30 tablet; Refills: 0, kb Product Selection Permitted Signatures: Dispatcher [employer] EDMS Lizbeth Walker, HHAS-C HHAS-Adolfo Figueroa RN RN as6 Scarlett Nair RN RN nj1 Corrections: (The following items were deleted from the chart) 17:23 17:23 CBC+H.LAB.BRZ ordered. EDMS EDMS 17:23 17:23 COMPREHENSIVE METABOLIC PANEL+C.LAB.BRZ ordered. EDMS EDMS 17:23 17:23 LIPASE+C.LAB.BRZ ordered. EDMS EDMS 17:23 17:23 Urinalysis+U.LAB.BRZ ordered. EDMS EDMS
[2023-09-05] MEDS ORDERED: HYDROCODONE/APAP 10/325 TAB ONE (20:14)
[2023-09-06 00:25] VITALS: BP 124/100; TEMP 98.2; O2SAT 99
== END 2023-09-05 20:22 | disposition home or self-care (01) ==
LOC: ER 17:09
DX: N20.2 Calculus of kidney with calculus of ureter (principal); Z87.442 Personal history of urinary calculi; Z88.5 Allergy status to narcotic agent
CPT/HCPCS: 85025; 81001; 36415; 83690; 80053; 76377; 74176; J3475; J2405; J7030

== ENCOUNTER 2023-11-19 20:57 | Emergency (ER) | payer BC ==
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
[2023-11-19] MEDS ORDERED: NA CHLORIDE 0.9% 1,000 ML ONE (21:55)
[2023-11-19] MEDS ORDERED: ASPIRIN 81 MG CHEWABLE TABLET ONE (21:55)
[2023-11-19] MEDS ORDERED: NITROGLYCERIN 0.4 MG/TAB SL ONE (21:56)
[2023-11-19 22:11] LABS: Absolute Basophils 0.1 K/uL (0-0.5); Absolute Eosinophils 0.2 K/uL (0-0.5); Absolute Lymphocytes (CBC) 3.2 K/uL (0.7-4.9); Absolute Monocytes 0.6 K/uL (0.1-1.3); Absolute Neutrophil 5.8 K/uL (1.8-8.0); Basophils % 0.8 % (0-1.3); Eosinophils % 2.2 % (0-4.4); Hematocrit 44.5 % (39.6-49.0); Hemoglobin 14.8 g/dL (13.6-17.9); Lymphocytes % 32.7 % (15.3-44.8); MCHC 33.3 g/dL (32.0-36.0); MCV 93.2 fL (80-100); Monocytes % 5.7 % (3.3-12.3); Neutrophils % 58.6 % (41.7-73.7); Nucleated Red Blood Cells % 0.4 % (0-0); Platelets 330 thou/uL (152-406); RBC Red Blood Cell Count 4.77 M/uL (4.33-5.43); Red Cell Distribution Width 13.3 % (12.1-15.2)
[2023-11-19 22:15] LABS: ALT/SGPT 69 U/L (16-61); AST/SGOT 27 U/L (15-37); Albumin 3.8 g/dL (3.4-5.0); Albumin/Globulin Ratio 1.1 (1.1-1.8); Alkaline Phosphatase 59 U/L (45-117); Anion Gap 7.6 mEq/L (5.0-15.0); BUN Blood Urea Nitrogen 17 mg/dL (7-18); Bicarbonate 28 mEq/L (21-32); Bilirubin Total 0.4 mg/dL (0.2-1.0); Globulin 3.4 g/dL (2.3-3.5); Glomerular Filtration Rate 90 ml/min (=/>90); Glucose Level 166 mg/dL (74-106); Lipase 49 U/L (13-75); Magnesium 1.9 mg/dL (1.6-2.4); NT PRO-BNP 11 pg/mL (<125); Potassium 3.6 mEq/L (3.5-5.1); Protein, Total 7.2 g/dL (6.4-8.2); Sodium Level 139 mEq/L (136-145)
[2023-11-19 22:18] LABS: Bilirubin Direct < 0.2 mg/dL (0-0.2); Bilirubin Indirect, Calculated 0.2 mg/dL (0.2-0.8); Troponin High Sensitivity < 3.0 pg/mL (<58.9)
[2023-11-19 22:21] LABS: Protime INR 1.09
--- NOTE | 2023-11-19 22:21 | RAD REPORT ---
EXAM DESCRIPTION: Jeremy Single View11/19/2023 10:00 pm CLINICAL HISTORY: Chest pain COMPARISON: 2022 FINDINGS: The lungs appear clear of acute infiltrate. The heart is normal size IMPRESSION: No acute abnormalities displayed
[2023-11-19] MEDS ORDERED: MORPHINE 4 MG/ML SYR ONE ×2 (22:43→23:36)
--- NOTE | 2023-11-20 01:28 | EDPHYS ---
Physician Documentation [facility] Name: Tim Burgos Age: 42 yrs Sex: Male : 1980 Arrival Date: 11/19/2023 Time: 20:57 Bed 7 Private MD: ED Physician Elbert Meredith HPI: 11/18 21:45 This 42 yrs old Male presents to ER via Ambulatory with complaints of Chest Tightness, cp Numbness Of Arm, Shortness Of Breath. 21:45 The patient or guardian reports chest pain that is located primarily in the anterior cp chest wall. 21:45 Onset: 1 hour(s) ago. The pain radiates to the left arm. Associated signs and symptoms: cp Pertinent positives: shortness of breath, left arm numbness, Pertinent negatives: abdominal pain, cough, diaphoresis, dizziness, lower extremity pain, lower extremity swelling, palpitations, syncope, vomiting. 21:45 The chest pain is described as sharp. Duration: The patient or guardian reports a cp single episode, that is still ongoing. Historical: - Allergies: 21:14 Tramadol HCl (Upset stomach); bm8 - Home Meds: 21:14 Unable to obtain [Active]; bm8 - PMHx: 21:14 diabetes mellitus; Hypercholesterolemia; Hypertensive disorder; Kidney stones; bm8 - PSHx: 21:14 Kidney stent and removal; bm8 - Immunization history:: Adult Immunizations not up to date. - Infectious Disease History:: Denies. - Social history:: Smoking status: Patient reports use of chewing tobacco. Patient uses alcohol, Patient/guardian denies using street drugs. ROS: 21:50 Constitutional: Negative for body aches, chills, fever, poor PO intake, cp 21:50 Eyes: Negative for injury, pain, redness, and discharge, cp 21:50 ENT: Negative for drainage from ear(s), ear pain, sore throat, difficulty swallowing, difficulty handling secretions, 21:50 Cardiovascular: Positive for chest pain, Negative for edema, palpitations, 21:50 Respiratory: Positive for shortness of breath, Negative for cough, wheezing, 21:50 Abdomen/GI: Negative for abdominal pain, vomiting, diarrhea, constipation, 21:50 Back: Negative for radiated pain, 21:50 Neuro: Positive for numbness, of the left arm, 21:50 All other systems are negative, Exam: 21:18 ECG was reviewed by the Attending Physician. cp 21:55 Constitutional: The patient appears in no acute distress, alert, awake, cp non-diaphoretic, non-toxic, well developed, well nourished, uncomfortable, 21:55 Head/Face: Normocephalic, atraumatic. cp 21:55 Eyes: Periorbital structures: appear normal, Conjunctiva: normal, no exudate, no injection, Sclera: no appreciated abnormality, Lids and lashes: appear normal, bilaterally, 21:55 ENT: External ear(s): are unremarkable, Nose: is normal, Mouth: Lips: moist, Oral mucosa: pink and intact, moist, Posterior pharynx: Airway: no evidence of obstruction, patent, 21:55 Chest/axilla: Inspection: normal, 21:55 Cardiovascular: Rate: normal, Rhythm: regular, Edema: is not appreciated, JVD: is not appreciated, 21:55 Respiratory: the patient does not display signs of respiratory distress, Respirations: normal, no use of accessory muscles, no retractions, labored breathing, is not present, Breath sounds: are clear throughout, no decreased breath sounds, no stridor, no wheezing, 21:55 Abdomen/GI: Inspection: abdomen appears normal, Palpation: abdomen is soft and non-tender, in all quadrants, 21:55 Back: pain, is absent, ROM is normal, 21:55 Neuro: Orientation: to person, place \T\ time. Mentation: is normal, Motor: moves all fours, strength is normal, Sensation: no obvious gross deficits, 11/19 00:48 ECG was reviewed by the Attending Physician. cp Vital Signs: 11/18 21:13 BP 128 / 95; Pulse 93; Resp 17; Temp 97.5; Pulse Ox 94% on R/A; Weight 68.04 kg; Height bm8 5 ft. 1 in. ; Pain 7/10; 22:22 BP 124 / 84; Pulse 83; Pulse Ox 96% on R/A; Pain 6/10; tm6 23:27 BP 132 / 89; Pulse 84; Pulse Ox 94% on R/A; Pain 6/10; tm6 11/19 00:42 BP 126 / 91; Pulse 83; Pulse Ox 95% on R/A; Pain 4/10; tm6 01:38 BP 118 / 89; Pulse 82; Resp 17; Temp 97.3(TE); Pulse Ox 95% on R/A; Pain 2/10; tm6 11/18 21:13 Body Mass Index 28.34 (68.04 kg, 154.94 cm) bm8 11/18 21:13 Pain Scale: Adult bm8 22:22 Pain Scale: Adult tm6 23:27 Pain Scale: Adult tm6 11/19 00:42 Pain Scale: Adult tm6 01:38 Pain Scale: Adult tm6 MDM: 01:27 Patient medically screened. cp 01:27 The patient was given aspirin in the Emergency Department. cp 01:27 Differential diagnosis: acute myocardial infarction, pericarditis, pleurisy, pneumonia, cp pneumothorax, stable angina, thoracic aortic disection, unstable angina. Data reviewed: vital signs, nurses notes, lab test result(s), EKG, radiologic studies, CT scan, plain films. I considered the following discharge prescriptions or medication management in the emergency department Medications were administered in the Emergency Department. See MAR. Care significantly affected by the following chronic conditions: Diabetes, Hypertension. Counseling: I had a detailed discussion with the patient and/or guardian regarding the historical points, exam findings, and any diagnostic results supporting the discharge/admit diagnosis, lab results, radiology results, the need for outpatient follow up, a epilepsy physician, to return to the emergency department if symptoms worsen or persist or if there are any questions or concerns that arise at home. Response to treatment: the patient's symptoms have markedly improved after treatment, and as a result, I will discharge patient. Special discussion: Based on the patient's history, exam, and Dx evaluation, there is no indication for emergent intervention or inpatient Tx. It is understood by the patient/guardian that if the Sx's persist or worsen they need to return immediately for re-evaluation. 11/18 21:37 Order name: Basic Metabolic Panel; Complete Time: 22:22 cp 11/19 00:00 Interpretation: Normal except: GLUC 166. cp 11/18 21:37 Order name: CBC with Diff; Complete Time: 22:22 cp 11/18 21:37 Order name: LFT's; Complete Time: 22:22 cp 11/18 21:37 Order name: Magnesium; Complete Time: 22:22 cp 11/18 21:37 Order name: NT PRO-BNP; Complete Time: 22:22 cp 11/18 21:37 Order name: PT-INR; Complete Time: 22:22 cp 11/18 21:37 Order name: Troponin HS; Complete Time: 22:22 cp 11/18 21:37 Order name: Lipase; Complete Time: 22:22 cp 11/18 22:15 Order name: Glucose, Ancillary Testing; Complete Time: 22:22 EDMS 11/19 00:24 Order name: Troponin HS; Complete Time: 01:11 cp 11/19 01:11 Interpretation: Reviewed. cp 11/18 21:37 Order name: XRAY Chest (1 view); Complete Time: 22:22 cp 11/18 22:24 Order name: CT Aorta for Dissection cp 11/18 21:37 Order name: Cardiac monitoring; Complete Time: 21:51 cp 11/18 21:37 Order name: EKG - Nurse/Tech; Complete Time: 21:53 cp 11/18 21:37 Order name: IV Saline Lock; Complete Time: 21:51 cp 11/18 21:37 Order name: Labs collected and sent; Complete Time: 21:51 cp 11/18 21:37 Order name: O2 Per Protocol; Complete Time: 21:51 cp 11/18 21:37 Order name: O2 Sat Monitoring; Complete Time: 21:51 cp 11/18 21:37 Order name: Accucheck Blood Glucose; Complete Time: 22:03 cp 11/19 00:24 Order name: EKG - Nurse/Tech; Complete Time: 00:41 cp EC/24 21:18 Rate is 91 beats/min. Rhythm is regular. NV interval is normal. QRS interval is normal. cp QT interval is normal. T waves are Inverted in lead aVR. Interpreted by me. Reviewed by me. 11/19 00:48 Rate is 84 beats/min. Rhythm is regular. NV interval is normal. QRS interval is normal. cp QT interval is normal. T waves are Inverted in lead aVR. Interpreted by me. Reviewed by me. Administered Medications: 11/18 22:03 Drug: Nitroglycerin Sublingual 0.4 mg Sublingual once Route: Sublingual; tm6 22:03 Drug: NS 0.9% IV 1000 ml IV at 1 bolus Per protocol; 1000 mL bolus Route: IV; Rate: 1 tm6 bolus; Site: right forearm; 11/19 01:45 Follow up: IV Status: Completed infusion; IV Intake: 1000ml tm6 11/18 22:04 Drug: Aspirin PO Chewable Tablet 324 mg PO once; 81 mg tablets x 4 Route: PO; tm6 22:48 Drug: morphine IVP or IV 4 mg IVP once over 4 mins Route: IVP; Infused Over: 4 mins; tm6 Site: right forearm; 11/19 01:44 Follow up: Response: No adverse reaction tm6 11/18 23:45 Drug: morphine IVP or IV 4 mg IVP once over 4 mins Route: IVP; Infused Over: 4 mins; tm6 Site: right forearm; 11/19 01:44 Follow up: Response: Marked relief of symptoms tm6 Disposition Summary: 11/20/23 01:27 Discharge Ordered Notes: Location: Home cp Problem: new cp Symptoms: have improved cp Condition: Stable cp Diagnosis - Chest pain, unspecified cp Followup: cp - With: Willie Clark MD - When: 2 - 3 days - Reason: Recheck today's complaints Discharge Instructions: - Discharge Summary Sheet cp - Nonspecific Chest Pain, Adult cp - Aspirin and Your Heart cp Forms: - Medication Reconciliation Form cp - Antibiotic Education cp - Prescription Opioid Use cp - Patient Portal Instructions cp - Leadership Thank You Letter cp - Work release form tm6 Prescriptions: - Protonix 40 mg Oral Tablet - take 1 tablet ORAL route once daily; 30 tablet; Refills: 0, Product Selection cp Permitted Signatures: Dispatcher [employer] EDMS Amadeo Machado PA PA cp Masterson, Tawney, RN RN tm6 Saul Angel RN RN bm8 Corrections: (The following items were deleted from the chart) 11/18 21:38 21:38 BASIC METABOLIC PANEL+C.LAB.BRZ ordered. EDMS EDMS 21:38 21:38 CBC+H.LAB.BRZ ordered. EDMS EDMS 21:38 21:38 HEPATIC FUNCTION+C.LAB.BRZ ordered. EDMS EDMS 21:38 21:38 MAGNESIUM+C.LAB.BRZ ordered. EDMS EDMS 21:38 21:38 PROBNP+C.LAB.BRZ ordered. EDMS EDMS 21:38 21:38 PROTIME (+INR)+COAG.LAB.BRZ ordered. EDMS EDMS 21:38 21:38 Troponin High Sensitivity+C.LAB.BRZ ordered. EDMS EDMS :38 LIPASE+C.LAB.BRZ ordered. EDMS EDMS : Chest Single View+RAD.RAD.BRZ ordered. EDMS EDMS
--- NOTE | 2023-11-20 01:28 | ER ---
Nurse's Notes [facility] Name: Tim Burgos Age: 42 yrs Sex: Male : 1980 Arrival Date: 11/19/2023 Time: 20:57 Bed 7 Private MD: Diagnosis: Chest pain, unspecified Presentation: 11/18 21:13 Chief complaint: Patient states: sudden onset of chest pain while eating dinner about bm8 an hour ago. It was kiinda hard to breathe, and my left arm feels nummb. Coronavirus screen: At this time, the client does not indicate any symptoms associated with coronavirus-19. Ebola Screen: Patient negative for fever greater than or equal to 101.5 degrees Fahrenheit, and additional compatible Ebola Virus Disease symptoms Patient denies exposure to infectious person. Patient denies travel to an Ebola-affected area in the 21 days before illness onset. No symptoms or risks identified at this time. Initial Sepsis Screen: Does the patient meet any 2 criteria? No. Patient's initial sepsis screen is negative. Does the patient have a suspected source of infection? No. Patient's initial sepsis screen is negative. Risk Assessment: Do you want to hurt yourself or someone else? Patient reports no desire to harm self or others. Onset of symptoms was November 19, 2023 at 20:00. 21:13 Method Of Arrival: Ambulatory bm8 21:13 Acuity: CONNOR 2 bm8 Triage Assessment: 21:14 General: Appears in no apparent distress. comfortable, Behavior is calm, cooperative, bm8 appropriate for age. Pain: Complains of pain in chest Pain does not radiate. Pain currently is 7 out of 10 on a pain scale. Neuro: No deficits noted. Level of Consciousness is awake, alert, obeys commands, Oriented to person, place, time, situation, Appropriate for age. Cardiovascular: Reports chest pain, shortness of breath, Capillary refill < 3 seconds Patient's skin is warm and dry. Respiratory: No deficits noted. Airway is patent Trachea midline Respiratory effort is even, unlabored, Respiratory pattern is regular, symmetrical. Historical: - Allergies: 21:14 Tramadol HCl (Upset stomach); bm8 - Home Meds: 21:14 Unable to obtain [Active]; bm8 - PMHx: 21:14 diabetes mellitus; Hypercholesterolemia; Hypertensive disorder; Kidney stones; bm8 - PSHx: 21:14 Kidney stent and removal; bm8 - Immunization history:: Adult Immunizations not up to date. - Infectious Disease History:: Denies. - Social history:: Smoking status: Patient reports use of chewing tobacco. Patient uses alcohol, Patient/guardian denies using street drugs. Screenin:21 [facility] ED Fall Risk Assessment (Adult) History of falling in the last 3 months, tm6 including since admission No falls in past 3 months (0 pts) Confusion or Disorientation No (0 pts) Intoxicated or Sedated No (0 pts) Impaired Gait No (0 pts) Mobility Assist Device Used No (0 pt) Altered Elimination No (0 pt) Score/Fall Risk Level 0 - 2 = Low Risk Oriented to surroundings, Maintained a safe environment, Educated pt \T\ family on fall prevention, incl call for assistance when getting out of bed. Abuse screen: Denies threats or abuse. Denies injuries from another. Nutritional screening: No deficits noted. Tuberculosis screening: No symptoms or risk factors identified. Assessment: 21:21 General: Appears in no apparent distress. Behavior is calm, cooperative. Pain: tm6 Complains of pain in mid-sternal area Pain does not radiate. Pain currently is 7 out of 10 on a pain scale. Quality of pain is described as pressure, sharp, Pain began 2 hours ago. Neuro: Level of Consciousness is awake, alert, obeys commands, Oriented to person, place, time, situation. Cardiovascular: Reports chest pain, Patient's skin is warm and dry. Rhythm is sinus rhythm Chest pain began 2 hours prior to arrival. Respiratory: Airway is patent Respiratory effort is even, unlabored, Respiratory pattern is regular, symmetrical. GI: No signs and/or symptoms were reported involving the gastrointestinal system. Abdomen is round non-distended. : No signs and/or symptoms were reported regarding the genitourinary system. EENT: No signs and/or symptoms were reported regarding the EENT system. Derm: No signs and/or symptoms reported regarding the dermatologic system. Musculoskeletal: No deficits noted. No signs and/or symptoms reported regarding the musculoskeletal system. 22:22 Reassessment: No changes from previously documented assessment. Patient states symptoms tm6 have not improved. 23:30 Reassessment: Patient appears in no apparent distress at this time. Patient states tm6 symptoms have not improved. 11/19 00:42 Reassessment: Patient and/or family updated on plan of care and expected duration. Pain tm6 level reassessed. Patient is alert, oriented x 3, equal unlabored respirations, skin warm/dry/pink. 01:39 Reassessment: Patient appears in no apparent distress at this time. No changes from tm6 previously documented assessment. 01:44 Reassessment: patient's picking up. tm6 Vital Signs: 11/18 21:13 BP 128 / 95; Pulse 93; Resp 17; Temp 97.5; Pulse Ox 94% on R/A; Weight 68.04 kg; Height bm8 5 ft. 1 in. ; Pain 7/10; 22:22 BP 124 / 84; Pulse 83; Pulse Ox 96% on R/A; Pain 6/10; tm6 23:27 BP 132 / 89; Pulse 84; Pulse Ox 94% on R/A; Pain 6/10; tm6 11/19 00:42 BP 126 / 91; Pulse 83; Pulse Ox 95% on R/A; Pain 4/10; tm6 01:38 BP 118 / 89; Pulse 82; Resp 17; Temp 97.3(TE); Pulse Ox 95% on R/A; Pain 2/10; tm6 11/18 21:13 Body Mass Index 28.34 (68.04 kg, 154.94 cm) bm8 11/18 21:13 Pain Scale: Adult bm8 22:22 Pain Scale: Adult tm6 23:27 Pain Scale: Adult tm6 11/19 00:42 Pain Scale: Adult tm6 01:38 Pain Scale: Adult tm6 ED Course: 11/18 20:59 Patient arrived in ED. ec2 21:00 Amadeo Machado PA is PHCP. cp 21:00 Elbert Meredith MD is Attending Physician. cp 21:10 EKG done, by ED staff, reviewed by Elbert Meredith MD. tm6 21:14 Triage completed. bm8 21:14 Arm band placed on right wrist. bm8 21:17 EKG completed in triage. Results shown to MD. bm8 21:21 Bebe Henson, RN is Primary Nurse. tm6 21:21 Patient has correct armband on for positive identification. Bed in low position. Call tm6 light in reach. Side rails up X 1. Provided Education on: use of call chery. Client placed on continuous cardiac and pulse oximetry monitoring. NIBP monitoring applied. classroom monitor on. Pulse ox on. NIBP on. Door closed. Noise minimized. 21:21 Inserted saline lock: 20 gauge in right forearm, using aseptic technique. tm6 22:02 XRAY Chest (1 view) In Process Unspecified. EDMS 23:15 CT Aorta for Dissection In Process Unspecified. EDMS 11/19 00:41 Troponin HS Sent. tm6 00:41 No provider procedures requiring assistance completed. EKG done, by ED staff, reviewed tm6 by Amadeo MALLOY. O2 via room air. 01:27 Willie Clark MD is Referral Physician. cp 01:39 IV discontinued, intact, bleeding controlled, No redness/swelling at site. Pressure tm6 dressing applied. Administered Medications: 11/18 22:03 Drug: Nitroglycerin Sublingual 0.4 mg Sublingual once Route: Sublingual; tm6 22:03 Drug: NS 0.9% IV 1000 ml IV at 1 bolus Per protocol; 1000 mL bolus Route: IV; Rate: 1 tm6 bolus; Site: right forearm; 11/19 01:45 Follow up: IV Status: Completed infusion; IV Intake: 1000ml tm6 11/18 22:04 Drug: Aspirin PO Chewable Tablet 324 mg PO once; 81 mg tablets x 4 Route: PO; tm6 22:48 Drug: morphine IVP or IV 4 mg IVP once over 4 mins Route: IVP; Infused Over: 4 mins; tm6 Site: right forearm; 11/19 01:44 Follow up: Response: No adverse reaction tm6 11/18 23:45 Drug: morphine IVP or IV 4 mg IVP once over 4 mins Route: IVP; Infused Over: 4 mins; tm6 Site: right forearm; 11/19 01:44 Follow up: Response: Marked relief of symptoms tm6 Medication: 11/18 21:21 VIS not applicable for this client. tm6 Intake: 11/19 01:45 IV: 1000ml; Total: 1000ml. tm6 Outcome: :27 Discharge ordered by . cp 01:39 Discharged to home ambulatory, tm6 01:39 Condition: stable 01:39 Discharge instructions given to patient, Instructed on discharge instructions, follow up and referral plans. medication usage, Demonstrated understanding of instructions, follow-up care, medications, Prescriptions given X 1, 01:44 Patient left the ED. tm6 Signatures: Dispatcher [employer] EDAmadeo Colin PA PA cp Corral, Edwin, MD MD ec2 Bebe Henson RN RN tm6 Saul Angel RN RN bm8
[2023-11-20 09:17] VITALS: BP 118/89; TEMP 97.3; O2SAT 95
--- NOTE | 2023-11-20 12:42 | EKG ---
Test Date: 2023-11-19 Test Time: 21:10:44 Vice President Of Nursing: BRENNON MEASUREMENT RESULTS: Intervals: Rate: 91 NJ: 138 QRSD: 76 QT: 358 QTc: 440 [place]: P: 41 NJ: 138 QRS: 53 T: 29 INTERPRETIVE STATEMENTS: Normal sinus rhythm Normal ECG No previous ECG available for comparison Electronically Signed On 11-20-23 12:41:30 CDT by Willie Clark
--- NOTE | 2023-11-20 17:25 | RAD REPORT ---
EXAM DESCRIPTION: CT - Angio Aorta For Dissection - 11/20/2023 6:40 am CLINICAL HISTORY: 42-year-old male with pain. COMPARISON: Chest x-ray 11/19/2023, and CT of the abdomen and pelvis 09/05/2023 TECHNIQUE: Volumetric CT of the chest, abdomen and pelvis acquired following intravenous administrat ion of contrast. Axial, coronal and sagittal images are provided. The study was performed using dose reduction techniques including automated exposure control and/or adjustment of the MA and/or KV accor ding to patient size, and/or iterative reconstruction techniques. This examination was performed acco rding to angiographic protocol with 3-D postprocessing. FINDINGS: Lines, tubes and hardware: None. Lower neck: The visible portions or the lower neck and thyroid are unremarkable. Axilla: No pathologic adenopathy based on size criteria. Airway: Patent. Lungs and pleura: No consolidation or pleural effusion. Mild bilateral pulmonary subsegmental atele ctasis. Mediastinum, niyah and intrathoracic lymph nodes: No pathologic adenopathy based on size criteria. Heart, pericardium, aorta and great vessels: Heart is normal in size. Aorta has a normal diameter, wi thout aneurysm or dissection. Pen Tender ascending aorta measures 2.7 cm in AP dimension and desc ending aorta measures 2.2 cm in AP dimension at the level of the main pulmonary artery1. Liver: Diffuse hepatic hypoattenuation, most suggestive of diffuse steatosis. Biliary tree: No intra- or extrahepatic bile duct dilation. Gallbladder: No calcified cholelithiasis or pericholecystic inflammation. Pancreas: No pancreatic lesion. Spleen: Heterogeneous arterial phase splenic enhancement. Adrenals: No adrenal gland lesion. Kidneys and ureters: No renal lesion, nephrolithiasis, or hydronephrosis. Small bilateral extrarenal pelvis. Bladder: No urinary bladder lesion. Reproductive organs: Coarse prostate gland calcifications. Gastrointestinal tract: Lower esophagus/stomach/small bowel: Debris present within the stomach, presumably due to ingested ma terial. Colon: Moderate amount of retained colonic stool. Appendix: Normal caliber appendix. Peritoneum, mesentery and retroperitoneum: No free air, ascites or loculated fluid. Lymph nodes: No pathologic adenopathy based on size criteria. Abdominal vasculature: Aorta and branches: Normal diameter, without dissection or aneurysm. Incidental 2 left renal arteries . Incidental 2 right renal arteries which join immediately after their origins. IVC and veins: IVC has normal diameter. Portal and mesenteric vasculature: Normal. Bones: No acute abnormality. Mild degenerative changes, including multilevel spondylosis. Soft tissues: Small bilateral inguinal hernias and tiny umbilical hernia containing adipose tissue. IMPRESSION: 1. No aortic aneurysm or dissection. 2. Diffuse hepatic steatosis. 3. Moderate retained colonic stool. 4. Additional incidental findings as discussed. Electronically signed by: Omar Pathak MD 11/20/2023 12:22 AM CDT RP Due to temporary technical issues with the PACS/Fluency reporting system, reports are being signed by the in house radiologists without review as a courtesy to insure prompt reporting. The interpreting radiologist is fully responsible for the content of the report.
--- NOTE | 2023-11-21 13:54 | EKG ---
Test Date: 2023-11-20 Test Time: 00:36:42 Contract Administration Specialist: JENNIFER MEASUREMENT RESULTS: Intervals: Rate: 84 MI: 150 QRSD: 86 QT: 386 QTc: 456 [place]: P: 43 MI: 150 QRS: 48 T: 29 INTERPRETIVE STATEMENTS: Normal sinus rhythm Normal ECG Compared to ECG 11/19/2023 21:10:44 No significant changes Electronically Signed On 11-21-23 13:49:51 CDT by Willie Clark
== END 2023-11-20 01:44 | disposition home or self-care (01) ==
LOC: ER 20:57
DX: R07.89 Other chest pain (principal); R06.02 Shortness of breath; R20.0 Anesthesia of skin
CPT/HCPCS: 93005; 85025; 80048; 36415; 83735; 85610; 82947; 80076; 84484 ×2; 83690; 83880; 71275; 74175; 71045; Q9967; J7030

== ENCOUNTER 2024-04-02 18:19 | Emergency (ER) | payer BC ==
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
[2024-04-02 19:15] LABS: Absolute Basophils 0.1 K/uL (0-0.5); Absolute Eosinophils 0.2 K/uL (0-0.5); Absolute Lymphocytes (CBC) 2.7 K/uL (0.7-4.9); Absolute Monocytes 0.6 K/uL (0.1-1.3); Absolute Neutrophil 3.8 K/uL (1.8-8.0); Basophils % 1.1 % (0-1.3); Eosinophils % 2.6 % (0-4.4); Hematocrit 44.8 % (39.6-49.0); Hemoglobin 15.2 g/dL (13.6-17.9); Lymphocytes % 36.9 % (15.3-44.8); MCH 30.8 pg (27.0-35.0); MCV 90.6 fL (80-100); MPV 8.9 fL (7.6-11.3); Monocytes % 7.7 % (3.3-12.3); Neutrophils % 51.7 % (41.7-73.7); Nucleated Red Blood Cells % 0.1 % (0-0); Platelets 247 thou/uL (152-406); RBC Red Blood Cell Count 4.95 M/uL (4.33-5.43)
[2024-04-02] MEDS ORDERED: KETOROLAC 30 MG/ML INJ ONE (19:21)
[2024-04-02 19:22] LABS: Albumin 4.2 g/dL (3.4-5.0); Albumin/Globulin Ratio 1.2 (1.1-1.8); Anion Gap 13.1 mEq/L (5.0-15.0); Bilirubin Total 0.4 mg/dL (0.2-1.0); Globulin 3.5 g/dL (2.3-3.5); Potassium 4.1 mEq/L (3.5-5.1); Protein, Total 7.7 g/dL (6.4-8.2)
[2024-04-02 19:40] LABS: Specific Gravity > 1.030 (1.005-1.030); Urine Bilirubin NEGATIVE (Negative); Urine Blood Negative (Negative); Urine Clarity Clear (Clear); Urine Color Light-Yellow (Yellow); Urine Glucose 4+ (Over) (Negative); Urine Ketones NEGATIVE (Negative); Urine Microscopic Reflex YN NO UMIC; Urine Nitrite NEGATIVE (Negative); Urine Protein NEGATIVE (Negative); Urine Urobilinogen Normal (Normal); Urine pH 5.5 (5.0-7.0)
--- NOTE | 2024-04-02 19:40 | RAD REPORT ---
EXAMINATION: CT Abdomen Pelvis Wo Contrast CLINICAL INDICATION: Male, 43 years old. ABD PAIN TECHNIQUE: CT abdomen and pelvis was performed, without IV contrast, as per department protocol. Axia l, sagittal and coronal reconstructions were obtained. One or more of the following dose reduction techniques were used: Automated exposure control, adjustment of the mA and kV according to the patien t size, and iterative reconstruction. Unless otherwise specified, incidental findings do not require dedicated imaging follow-up. COMPARISON: 09/05/2023 FINDINGS: The lack of intravenous contrast limits the sensitivity of this exam for evaluation of solid visceral organs, vascular structures, and retroperitoneum. LOWER CHEST: The visualized lung bases are clear. LIVER: Normal in size and contour. Regional areas of parenchymal hypoattenuation suggesting steatosis . No focal lesion. BILIARY SYSTEM: No suspicious abnormalities. SPLEEN: Normal size. No focal lesion. PANCREAS: No mass, ductal dilation, or selena-pancreatic fluid. ADRENALS: Normal; no mass. KIDNEYS AND URETERS: Normal size and contour. No hydronephrosis. URINARY BLADDER: Normal contour. GASTROINTESTINAL TRACT: No evidence of bowel obstruction, significant free fluid, free air or abscess . APPENDIX: Normal appendix. LYMPH NODES: No lymphadenopathy. MUSCULOSKELETAL: No acute or suspicious osseous abnormality. ADDITIONAL FINDINGS: Mild prostatic calcifications. IMPRESSION: No acute abnormalities in the abdomen or pelvis, with evaluation limited by lack of IV contrast. Hepatic steatosis, as above.
--- NOTE | 2024-04-02 20:03 | EDPHYS ---
Physician Documentation [facility] Name: Tim Burgos Age: 43 yrs Sex: Male : 1980 Arrival Date: 04/02/2024 Time: 18:19 Bed 17 Private MD: ED Physician Cindy Dang HPI: 04/02 20:33 This 43 yrs old Male presents to ER via Ambulatory with complaints of gb1 Possible Kidney Stone. 20:33 43-year-old male with left flank pain has history of kidney stones. He is a gb1 noncompliant diabetic, with hyperlipidemia and uncontrolled hypertension. He also has a history of kidney stones. He states that he is needed a stent in the past. He is nauseated without vomiting.. Historical: - Allergies: 18:38 Tramadol HCl (Upset stomach); cm10 - PMHx: 18:38 diabetes mellitus; Hypercholesterolemia; Hypertensive disorder; Kidney stones; cm10 - PSHx: 18:38 Kidney stent and removal; cm10 - Immunization history:: Adult Immunizations up to date. - Infectious Disease History:: Denies. - Social history:: Smoking status: Patient reports use of chewing tobacco. Exam: 20:33 Constitutional: This is a well developed, well nourished patient who is awake, alert, gb1 and in no acute distress. Head/Face: Normocephalic, atraumatic. Eyes: Pupils equal round and reactive to light, extra-ocular motions intact. Lids and lashes normal. Conjunctiva and sclera are non-icteric and not injected. Cornea within normal limits. Periorbital areas with no swelling, redness, or edema. ENT: Nares patent. No nasal discharge, no septal abnormalities noted. Tympanic membranes are normal and external auditory canals are clear. Oropharynx with no redness, swelling, or masses, exudates, or evidence of obstruction, uvula midline. Mucous membranes moist. Neck: Trachea midline, no thyromegaly or masses palpated, and no cervical lymphadenopathy. Supple, full range of motion without nuchal rigidity, or vertebral point tenderness. No Meningismus. Chest/axilla: Normal chest wall appearance and motion. Nontender with no deformity. No lesions are appreciated. Cardiovascular: Regular rate and rhythm with a normal S1 and S2. No gallops, murmurs, or rubs. Normal PMI, no JVD. No pulse deficits. Respiratory: Lungs have equal breath sounds bilaterally, clear to auscultation and percussion. No rales, rhonchi or wheezes noted. No increased work of breathing, no retractions or nasal flaring. Abdomen/GI: Soft, non-tender, with normal bowel sounds. No distension or tympany. No guarding or rebound. No evidence of tenderness throughout. Skin: Warm, dry with normal turgor. Normal color with no rashes, no lesions, and no evidence of cellulitis. MS/ Extremity: Pulses equal, no cyanosis. Neurovascular intact. Full, normal range of motion. Vital Signs: 18:37 BP 118 / 97; Pulse 94; Resp 18; Temp 97.8; Pulse Ox 97% on R/A; Weight 72.57 kg; Height cm10 5 ft. 1 in. ; Pain 8/10; 19:35 BP 122 / 91; Pulse 86; Resp 17; Pulse Ox 94% ; me1 19:57 Pain 0/10; me1 20:46 BP 104 / 79; Pulse 85; Resp 16; Temp 98.6; Pulse Ox 94% ; me1 18:37 Body Mass Index 30.23 (72.57 kg, 154.94 cm) cm10 18:37 Pain Scale: Adult cm10 19:57 Pain Scale: Adult me1 MDM: 18:44 Medical Screening Exam initiated gb1 20:33 Data reviewed: vital signs, nurses notes, lab test result(s), CBC, electrolytes, gb1 urinalysis, radiologic studies, CT scan. ED course: 43-year-old male with left flank pain. He has a history of diabetes and hyperlipidemia as well as uncontrolled hypertension. Patient is noncompliant with his diabetes medications. Today he is hyperglycemic without any signs of a kidney stone on CT abdomen and pelvis. I doubt acute pyelonephritis or infected stone at this time. I doubt acute appendicitis. Patient be discharged home with routine outpatient follow-up as previously discussed and given explicit return precautions to which is compliant to prior discharge home today.. 04/02 18:24 Order name: CBC with Diff; Complete Time: 19:26 gb1 04/02 18:24 Order name: CMP; Complete Time: 19:26 gb1 04/02 18:25 Order name: Urinalysis w/ reflexes; Complete Time: 19:46 gb1 04/02 18:24 Order name: CT Abd/Pelvis - Without Contrast; Complete Time: 19:46 gb1 04/02 18:24 Order name: IV Saline Lock; Complete Time: 19:28 gb1 04/02 18:24 Order name: Labs collected and sent; Complete Time: 19:28 gb1 Administered Medications: 19:28 Drug: Ketorolac IVP 30 mg IVP once Route: IVP; Site: left antecubital; me1 19:57 Follow up: Pain 0/10 Adult me1 19:57 Follow up: Response: No adverse reaction; Pain is decreased me1 Disposition Summary: 04/02/24 20:35 Discharge Ordered Notes: Location: Home(04/02/24 20:35) gb1 Condition: Stable(04/02/24 20:35) gb1 Problem: an acute exacerbation gb1 Symptoms: have improved gb1 Diagnosis - Low back pain(04/02/24 20:35) gb1 - Diabetes mellitus due to underlying condition with hyperglycemia gb1 Followup: gb1 - With: Private Physician - When: - Reason: Recheck today's complaints Discharge Instructions: - Discharge Summary Sheet gb1 - Acute Back Pain, Adult gb1 Forms: - Medication Reconciliation Form gb1 - Antibiotic Education gb1 - Prescription Opioid Use gb1 - Patient Portal Instructions gb1 - Leadership Thank You Letter gb1 Prescriptions: - ketorolac 10 mg Oral tablet - take 1 tablet ORAL route every 4 hours for 3 days while awake; do not exceed 4 gb1 doses per day; 20 tablet; Refills: 0, Product Selection Permitted Signatures: Dispatcher [employer] Clarissa Cochran RN RN cm10 Radha Ferrera RN RN me1 Cindy Dang MD MD gb1 Corrections: (The following items were deleted from the chart) 18:50 18:25 Test, Urine+[id number].BRZ ordered. EDMS EDMS 20:34 20:02 Home gb1 gb1 20:34 20:02 Stable gb1 gb1 20:34 20:02 Low back pain gb1 gb1
--- NOTE | 2024-04-02 20:03 | ER ---
Nurse's Notes [facility] Name: Tim Burgos Age: 43 yrs Sex: Male : 1980 Arrival Date: 04/02/2024 Time: 18:19 Bed 17 Private MD: Diagnosis: Low back pain;Diabetes mellitus due to underlying condition with hyperglycemia Presentation: 04/02 18:37 Chief complaint: Patient states: Left flank pain onset today at 1300. Pt reports cm10 burning with urination and nausea and vomiting. Coronavirus screen: Client denies travel out of the [place] in the last 14 days. Ebola Screen: Patient denies travel to an Ebola-affected area in the 21 days before illness onset. No symptoms or risks identified at this time. Initial Sepsis Screen: Does the patient meet any 2 criteria? HR > 90 bpm. Does the patient have a suspected source of infection? No. Patient's initial sepsis screen is negative. Risk Assessment: Do you want to hurt yourself or someone else? Patient reports no desire to harm self or others. Onset of symptoms was April 02, 2024. 18:37 Method Of Arrival: Ambulatory cm10 18:37 Acuity: CONNOR 3 cm10 Triage Assessment: 18:38 General: Appears in no apparent distress. uncomfortable, Behavior is calm, cooperative, cm10 appropriate for age. Neuro: No deficits noted. Level of Consciousness is awake, alert, obeys commands, Oriented to person, place, time, situation, Appropriate for age. Respiratory: No deficits noted. Airway is patent Respiratory effort is even, unlabored, Respiratory pattern is regular, symmetrical. Historical: - Allergies: 18:38 Tramadol HCl (Upset stomach); cm10 - PMHx: 18:38 diabetes mellitus; Hypercholesterolemia; Hypertensive disorder; Kidney stones; cm10 - PSHx: 18:38 Kidney stent and removal; cm10 - Immunization history:: Adult Immunizations up to date. - Infectious Disease History:: Denies. - Social history:: Smoking status: Patient reports use of chewing tobacco. Screenin:50 [facility] ED Fall Risk Assessment (Adult) History of falling in the last 3 months, me1 including since admission No falls in past 3 months (0 pts) Confusion or Disorientation No (0 pts) Intoxicated or Sedated No (0 pts) Impaired Gait No (0 pts) Mobility Assist Device Used No (0 pt) Altered Elimination No (0 pt) Score/Fall Risk Level 0 - 2 = Low Risk Maintained a safe environment, Provided non-skid footwear, Hourly rounding (assess needs \T\ fall precautionary measures) done. Abuse screen: Denies threats or abuse. Nutritional screening: No deficits noted. Tuberculosis screening: No symptoms or risk factors identified. Assessment: 18:50 General: Appears uncomfortable, well groomed, well developed, well nourished, Behavior me1 is calm, cooperative, appropriate for age, Reports Left flank pain onset today at 1300. Pt reports burning with urination and nausea and vomiting. Pain: Complains of pain in left low back and left mid back Pain does not radiate. Pain currently is 8 out of 10 on a pain scale. Quality of pain is described as sharp, shooting, Pain began suddenly, Is continuous. Neuro: Level of Consciousness is awake, alert, obeys commands, Oriented to person, place, time, situation, Appropriate for age. Cardiovascular: Patient's skin is warm and dry. Respiratory: Airway is patent Respiratory effort is even, unlabored, Respiratory pattern is regular, symmetrical. GI: Abdomen is round non-distended, Bowel sounds present X 4 quads. Abd is soft and non tender X 4 quads. GI: Reports nausea, vomiting. : Reports burning with urination. :. EENT: No signs and/or symptoms were reported regarding the EENT system. Derm: Skin is intact, is healthy with good turgor, Skin is pink, warm \T\ dry. Musculoskeletal: No signs and/or symptoms reported regarding the musculoskeletal system. Vital Signs: 18:37 BP 118 / 97; Pulse 94; Resp 18; Temp 97.8; Pulse Ox 97% on R/A; Weight 72.57 kg; Height cm10 5 ft. 1 in. ; Pain 8/10; 19:35 BP 122 / 91; Pulse 86; Resp 17; Pulse Ox 94% ; me1 19:57 Pain 0/10; me1 20:46 BP 104 / 79; Pulse 85; Resp 16; Temp 98.6; Pulse Ox 94% ; me1 18:37 Body Mass Index 30.23 (72.57 kg, 154.94 cm) cm10 18:37 Pain Scale: Adult cm10 19:57 Pain Scale: Adult tx1 ED Course: 18:21 Patient arrived in ED. im 18:23 Cindy Dang MD is Attending Physician. gb1 18:38 Triage completed. cm10 18:39 Arm band placed on right wrist. Patient placed in waiting room. cm10 18:45 Radha Ferrera, RN is Primary Nurse. me1 18:50 Patient has correct armband on for positive identification. Bed in low position. Call me1 light in reach. Side rails up X 1. Provided Education on: POC. Verbalized understanding. . Client placed on continuous cardiac and pulse oximetry monitoring. NIBP monitoring applied. Pulse ox on. NIBP on. 18:50 No provider procedures requiring assistance completed. me1 19:05 CT Abd/Pelvis - Without Contrast In Process Unspecified. EDMS 19:28 Initial lab(s) drawn, by me, sent to lab. Missed attempt(s): 22 gauge in right tx1 antecubital area. 19:29 Urinalysis w/ reflexes Sent. me1 19:29 Inserted saline lock: 22 gauge in left antecubital area, using aseptic technique. oe Flushed with 10 mL NS. 19:30 Urine collected: clean catch specimen, divya colored. me1 20:51 IV discontinued, intact, bleeding controlled, No redness/swelling at site. Pressure tx1 dressing applied. Administered Medications: 19:28 Drug: Ketorolac IVP 30 mg IVP once Route: IVP; Site: left antecubital; me1 19:57 Follow up: Pain 0/10 Adult tx1 19:57 Follow up: Response: No adverse reaction; Pain is decreased me1 Medication: 18:50 VIS not applicable for this client. me1 Outcome: 20:02 Discharge ordered by . gb1 20:35 Discharge ordered by . gb1 20:51 Discharged to home ambulatory, me1 20:51 Condition: stable 20:51 Discharge instructions given to patient, Instructed on discharge instructions, follow up and referral plans. medication usage, Demonstrated understanding of instructions, follow-up care, medications, Prescriptions given X 1, 20:51 Patient left the ED. me1 Signatures: Dispatcher [employer] [facility] [address] Itzel im Martinez, Clarissa, RN RN 10 Radha Ferrera RN RN tx1 Cindy Dang MD MD gb1 Corrections: (The following items were deleted from the chart) 18:45 18:37 Chief complaint: Patient states: Left flank pain onset today at 1300. Pt reports me1 burning with urination and nausea and vomiting. cm10 19:30 18:37 Chief complaint: Patient states: Left flank pain onset today at 1300. Pt reports me1 burning with urination and nausea and vomiting. me1
[2024-04-02 20:58] VITALS: O2SAT 94
[2024-04-02 21:00] VITALS: BP 104/79; TEMP 98.6
== END 2024-04-02 20:51 | disposition home or self-care (01) ==
LOC: ER 18:19
DX: M54.50 Low back pain, unspecified (principal); E11.65 Type 2 diabetes mellitus with hyperglycemia; Z87.442 Personal history of urinary calculi; F17.220 Nicotine dependence, chewing tobacco, uncomplicated
CPT/HCPCS: 36415; 74176; 80053; 81003; 85025

== ENCOUNTER 2024-07-08 17:01 | Emergency (ER) | payer BC ==
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
--- NOTE | 2024-07-08 17:34 | EDPHYS ---
Physician Documentation [facility] Name: Tim Burgos Age: 43 yrs Sex: Male : 1980 Arrival Date: 07/08/2024 Time: 17:01 Bed DX4 Private MD: ED Physician Dawson Jones HPI: 07/08 17:44 This 43 yrs old Male presents to ER via Ambulatory with complaints of Allergy Symptoms. kb 17:44 Pt is a 43 year old male who presents for cough and sinus congestion that started 3 kb days ago. 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 Denies fever. . Historical: - Allergies: 17:13 Tramadol HCl (Upset stomach); me1 - PMHx: 17:13 diabetes mellitus; Hypercholesterolemia; Hypertensive disorder; Kidney stones; me1 - PSHx: 17:13 Kidney stent and removal; me1 - Immunization history:: Adult Immunizations up to date. - Infectious Disease History:: Denies. - Social history:: Smoking status: Patient denies any tobacco usage or history of. ROS: 17:44 Constitutional: As per HPI kb Exam: 17:44 Constitutional: This is a well developed, well nourished patient who is awake, alert, kb and in no acute distress. Head/Face: Normocephalic, atraumatic. ENT: Moist Mucous membranes Cardiovascular: Regular rate Respiratory: Respirations even and unlabored. No increased work of breathing. Talking in full sentences Skin: Warm, dry with normal turgor. Normal color. MS/ Extremity: Pulses equal, no cyanosis. Neurovascular intact. Full, normal range of motion. Neuro: Awake and alert, GCS 15, oriented to person, place, time, and situation. 17:44 ENT: TM's: are normal, Vital Signs: 17:11 BP 131 / 92; Pulse 93; Resp 16; Temp 98.7; Pulse Ox 98% ; Weight 70.31 kg; Height 5 ft. me1 2 in. ; Pain 0/10; 18:05 BP 129 / 89; Pulse 96; Resp 16; Temp 98.4; Pulse Ox 100% ; me1 17:11 Body Mass Index 28.35 (70.31 kg, 157.48 cm) me1 17:11 Pain Scale: Adult me1 MDM: 17:03 Medical Screening Exam initiated kb 17:45 Differential diagnosis: sinusitis, allergic rhinitis, uri. Data reviewed: vital signs, kb nurses notes. Counseling: I had a detailed discussion with the patient and/or guardian regarding the historical points, exam findings, and any diagnostic results supporting the discharge/admit diagnosis, the need for outpatient follow up, a family practitioner, to return to the emergency department if symptoms worsen or persist or if there are any questions or concerns that arise at home. Administered Medications: 18:05 Drug: Dexamethasone IM 10 mg IM once Route: IM; Site: left deltoid; me1 18:05 Follow up: Response: No adverse reaction me1 Disposition: 19:24 Co-signature as Attending Physician, Dawson Jones MD I reviewed the patient's care rn provided by the Advanced Practice Provider and agree with the diagnosis and treatment plan. Disposition Summary: 07/08/24 17:34 Discharge Ordered Notes: Location: Home kb Condition: Stable kb Diagnosis - Cough kb Followup: kb - With: Emergency Department - When: As needed - Reason: Worsening of condition Followup: kb - With: Private Physician - When: 2 - 3 days - Reason: Recheck today's complaints, Continuance of care, Re-evaluation by your physician Discharge Instructions: - Discharge Summary Sheet kb - Cough, Adult, Saah-je-Ngoa kb Forms: - Medication Reconciliation Form kb - Antibiotic Education kb - Prescription Opioid Use kb - Patient Portal Instructions kb - Leadership Thank You Letter kb Prescriptions: - Zithromax Z-Niranjan 250 mg Oral Tablet - take 1 tablet ORAL route as directed for 5 days Day 1 - take two (2) tablets kb one time. Day 2, 3, 4 , 5 take one (1) tablet once daily.; 6 tablet; Refills: 0, Product Selection Permitted Signatures: Lizbeth Walker FNP-C FNP-Dawson Dominguez MD MD rn Eddleman, Michelle, RN RN me1
--- NOTE | 2024-07-08 17:34 | ER ---
Nurse's Notes [facility] Name: Tim Burgos Age: 43 yrs Sex: Male : 1980 Arrival Date: 07/08/2024 Time: 17:01 Bed DX4 Private MD: Diagnosis: Cough Presentation: 07/08 17:11 Chief complaint: Patient states: started having cough, green sinus drainage starting on me1 Sunday. Coronavirus screen: Vaccine status: Patient reports being unvaccinated. Ebola Screen: No symptoms or risks identified at this time. Onset: The symptoms/episode began/occurred gradually, 3 day(s) ago. Initial Sepsis Screen: Does the patient meet any 2 criteria? No. Patient's initial sepsis screen is negative. Risk Assessment: Do you want to hurt yourself or someone else? Patient reports no desire to harm self or others. Onset of symptoms was July 06, 2024. 17:11 Method Of Arrival: Ambulatory [facility] 17:11 Acuity: CONNOR 4 me1 18:05 Anaphylaxis evaluation, no signs or symptoms of anaphylaxis were noted. Initial Sepsis tn1 Screen: Does the patient have a suspected source of infection? No. Patient's initial sepsis screen is negative. Triage Assessment: 17:14 General: Appears in no apparent distress. well groomed, well developed, well nourished, me1 Behavior is calm, cooperative, appropriate for age, Reports green sinus drainage and cough since Sunday. Pain: Denies pain. EENT: Reports nasal discharge that is green. Neuro: Level of Consciousness is awake, alert, obeys commands, Oriented to person, place, time, situation, Appropriate for age. Cardiovascular: Patient's skin is warm and dry. Respiratory: Reports cough that is Airway is patent Respiratory effort is even, unlabored, Respiratory pattern is regular, symmetrical. GI: No signs and/or symptoms were reported involving the gastrointestinal system. : No signs and/or symptoms were reported regarding the genitourinary system. Derm: Skin is intact, is healthy with good turgor, Skin is pink, warm \T\ dry. Musculoskeletal: No signs and/or symptoms reported regarding the musculoskeletal system. Historical: - Allergies: 17:13 Tramadol HCl (Upset stomach); me1 - PMHx: 17:13 diabetes mellitus; Hypercholesterolemia; Hypertensive disorder; Kidney stones; me1 - PSHx: 17:13 Kidney stent and removal; me1 - Immunization history:: Adult Immunizations up to date. - Infectious Disease History:: Denies. - Social history:: Smoking status: Patient denies any tobacco usage or history of. Screenin:15 [facility] ED Fall Risk Assessment (Adult) History of falling in the last 3 months, me1 including since admission No falls in past 3 months (0 pts) Confusion or Disorientation No (0 pts) Intoxicated or Sedated No (0 pts) Impaired Gait No (0 pts) Mobility Assist Device Used No (0 pt) Altered Elimination No (0 pt) Score/Fall Risk Level 0 - 2 = Low Risk Maintained a safe environment, Provided non-skid footwear, Hourly rounding (assess needs \T\ fall precautionary measures) done. Abuse screen: Denies threats or abuse. Nutritional screening: No deficits noted. Tuberculosis screening: No symptoms or risk factors identified. Assessment: 17:15 General: See triage assessment. . Respiratory: Airway is patent Breath sounds are clear me1 bilaterally. Vital Signs: 17:11 BP 131 / 92; Pulse 93; Resp 16; Temp 98.7; Pulse Ox 98% ; Weight 70.31 kg; Height 5 ft. me1 2 in. ; Pain 0/10; 18:05 BP 129 / 89; Pulse 96; Resp 16; Temp 98.4; Pulse Ox 100% ; me1 17:11 Body Mass Index 28.35 (70.31 kg, 157.48 cm) me1 17:11 Pain Scale: Adult tn1 ED Course: 17:03 Patient arrived in ED. im 17:03 Lizbeth Walker FNP-C is PHCP. kb 17:03 Dawson Jones MD is Attending Physician. kb 17:13 Triage completed. me1 17:13 Arm band placed on Patient placed in waiting room. me1 17:15 Patient has correct armband on for positive identification. Bed in low position. Call me1 light in reach. Side rails up X 1. Provided Education on: POC. Verbalized understanding.. 17:15 No provider procedures requiring assistance completed. Patient did not have IV access me1 during this emergency room visit. 18:00 Radha Ferrera, RN is Primary Nurse. me1 Administered Medications: 18:05 Drug: Dexamethasone IM 10 mg IM once Route: IM; Site: left deltoid; me1 18:05 Follow up: Response: No adverse reaction me1 Medication: 17:15 VIS not applicable for this client. me1 Outcome: 17:34 Discharge ordered by . mickey 18:05 Discharged to home ambulatory, me1 18:05 Condition: stable 18:05 Discharge instructions given to patient, Instructed on discharge instructions, follow up and referral plans. medication usage, Demonstrated understanding of instructions, follow-up care, medications, Prescriptions given X 1, 18:06 Patient left the ED. me1 Signatures: Lizbeth Walker, MINE MOTOR ENGINEER-C MINE MOTOR ENGINEER-Milka Malhotra Michelle, RN RN me1
[2024-07-08] MEDS ORDERED: dexAMETHasone 10 MG/ML VIAL ONE (18:02)
[2024-07-08 21:55] VITALS: BP 129/89; TEMP 98.4; O2SAT 100
== END 2024-07-08 18:06 | disposition home or self-care (01) ==
LOC: ER 17:01
DX: R05.9 Cough, unspecified (principal); R09.81 Nasal congestion
CPT/HCPCS: J1100

== ENCOUNTER 2025-03-26 06:01 | Emergency (ER) | payer BC ==
[2025-03-26] MEDS ORDERED: NA CHLORIDE 0.9% 1,000 ML ONE (06:47)
[2025-03-26] MEDS ORDERED: MORPHINE 2 MG/ML SYR ONE (06:47)
[2025-03-26] MEDS ORDERED: ONDANSETRON 4 MG/2 ML VIAL ONE ×2 (06:47→07:12)
[2025-03-26] MEDS ORDERED: KETOROLAC 30 MG/ML INJ ONE (06:47)
[2025-03-26 06:51] LABS: Absolute Lymphocytes (CBC) 2.3 K/uL (0.7-4.9); Hematocrit 43.5 % (39.6-49.0); Hemoglobin 14.2 g/dL (13.6-17.9); MCH 28.4 pg (27.0-35.0); MCHC 32.7 g/dL (32.0-36.0); MCV 86.8 fL (80-100); MPV 7.9 fL (7.6-11.3); Nucleated RBC Absolute Count 0.0 (0-0); Nucleated Red Blood Cells % 0.0 % (0-0); RBC Red Blood Cell Count 5.01 M/uL (4.33-5.43); White Blood Count 8.60 thou/uL (4.3-10.9)
[2025-03-26 07:12] LABS: ALT/SGPT 40.0 U/L (16-61); AST/SGOT 15.0 U/L (15-37); Albumin 4.0 g/dL (3.4-5.0); Albumin/Globulin Ratio 1.1 (1.1-1.8); Alkaline Phosphatase 76.0 U/L (45-117); Anion Gap 8.8 mEq/L (5.0-15.0); BUN Blood Urea Nitrogen 24.0 mg/dL (7-18); Globulin 3.5 g/dL (2.3-3.5); Glucose Level 182.0 mg/dL (74-106); Lipase 50.0 U/L (13-75); Potassium 3.8 mEq/L (3.5-5.1)
[2025-03-26 07:30] LABS: Urine Microscopic Reflex YN NO UMIC
--- NOTE | 2025-03-26 07:46 | RAD REPORT ---
EXAMINATION: CT ABDOMEN AND PELVIS WITHOUT CONTRAST CLINICAL INDICATION: ABD PAIN TECHNIQUE: CT abdomen and pelvis was performed, without IV contrast, as per department protocol. Axia l, sagittal and coronal reconstructions were obtained. One or more of the following dose reduction techniques were used: Automated exposure control, adjustment of the mA and kV according to the patien t size, and iterative reconstruction. Unless otherwise specified, incidental findings do not require dedicated imaging follow-up. COMPARISON: No prior exam. FINDINGS: The lack of intravenous contrast limits the sensitivity of this exam for evaluation of solid visceral organs, vascular structures, and retroperitoneum. LOWER CHEST: The visualized lung bases are clear. LIVER:Normal in size and contour. No focal lesion. Grossly unremarkable gallbladder. SPLEEN: Normal size. No focal lesion. PANCREAS: No mass, ductal dilation, or selena-pancreatic fluid. ADRENALS: Normal; no mass. KIDNEYS AND URETERS: Normal size and contour. No hydronephrosis. URINARY BLADDER: Normal contour. GASTROINTESTINAL TRACT: No evidence of bowel obstruction, significant free fluid, free air or abscess . APPENDIX: Normal appendix. LYMPH NODES: No lymphadenopathy. MUSCULOSKELETAL: No acute or suspicious osseous abnormality. IMPRESSION: No tract stone or hydronephrosis.
--- NOTE | 2025-03-26 07:54 | ER ---
Nurse's Notes [facility] Name: Tim Burgos Age: 44 yrs Sex: Male : 1980 Arrival Date: 03/26/2025 Time: 06:01 Bed 13 Private MD: Diagnosis: Lumbar muscle strain, right flank pain Presentation: 03/26 06:15 Chief complaint: Patient states: RIGHT FLANK PAIN THAT STARTED THIS MORNING. HAS jj7 HISTORY OF KIDNEY STONES AND FEELS LIKE THIS IS A KIDNEY STONE. Coronavirus screen: At this time, the client does not indicate any symptoms associated with coronavirus-19. Ebola Screen: No symptoms or risks identified at this time. Initial Sepsis Screen: Does the patient meet any 2 criteria? HR > 90 bpm. Yes Does the patient have a suspected source of infection? No. Patient's initial sepsis screen is negative. Risk Assessment: Do you want to hurt yourself or someone else? Patient reports no desire to harm self or others. Onset of symptoms was March 26, 2025. 06:15 Method Of Arrival: Ambulatory [facility] 06:15 Acuity: CONNOR 3 jj7 Triage Assessment: 06:31 General: Appears in no apparent distress. comfortable, Behavior is calm, cooperative, jj7 appropriate for age. Pain: Complains of pain in posterior aspect of right lateral abdomen. GI: No deficits noted. : Reports pain in right flank(s). Historical: - Allergies: 06:31 Tramadol HCl (Upset stomach); jj7 - PMHx: 06:31 diabetes mellitus; Hypercholesterolemia; Hypertensive disorder; Kidney stones; jj7 - PSHx: 06:31 Kidney stent and removal; jj7 - Immunization history:: Adult Immunizations not up to date. - Infectious Disease History:: Denies. - Social history:: Smoking status: Patient denies any tobacco usage or history of. Patient/guardian denies using alcohol, street drugs, IV drugs. - Family history:: not pertinent. Screenin:48 [facility] ED Fall Risk Assessment (Adult) History of falling in the last 3 months, kd4 including since admission No falls in past 3 months (0 pts) Confusion or Disorientation No (0 pts) Intoxicated or Sedated No (0 pts) Impaired Gait No (0 pts) Mobility Assist Device Used No (0 pt) Altered Elimination No (0 pt) Score/Fall Risk Level 0 - 2 = Low Risk Oriented to surroundings, Maintained a safe environment. Abuse screen: Denies threats or abuse. Nutritional screening: No deficits noted. Tuberculosis screening: No symptoms or risk factors identified. Assessment: 06:48 General: Appears in no apparent distress. comfortable, Behavior is calm, cooperative. kd4 Pain: Complains of pain in abdomen and posterior aspect of right lateral abdomen Pain currently is 8 out of 10 on a pain scale. Neuro: Denies weakness dizziness. Respiratory: Denies shortness of breath. GI: Reports upper abdominal pain, nausea. 07:50 Reassessment: Dr. Leiva AT . ll1 08:05 GI: Bowel sounds present X 4 quads. Abd is soft and non tender X 4 quads. ll1 Vital Signs: 06:15 BP 131 / 95; Pulse 103; Resp 20; Temp 98.2; Pulse Ox 100% ; Weight 66.22 kg; Height 5 jj7 ft. 2 in. ; Pain 7/10; 08:00 BP 132 / 100; Pulse 100; Resp 17; Pulse Ox 100% on R/A; ll1 06:15 Body Mass Index 26.70 (66.22 kg, 157.48 cm) jj7 06:15 Pain Scale: Adult jj7 Reuben Coma Score: 06:48 Eye Response: spontaneous(4). Verbal Response: oriented(5). Motor Response: obeys kd4 commands(6). Total: 15. 06:59 Eye Response: spontaneous(4). Verbal Response: oriented(5). Motor Response: obeys sp4 commands(6). Total: 15. ED Course: 06:04 Patient arrived in ED. gm2 06:10 Sherwin Jackson MD is Attending Physician. sp4 06:30 Triage completed. jj7 06:31 Arm band placed on right wrist. Patient placed in a hallway bed, on a stretcher. jj7 06:32 Barney Mack RN is Primary Nurse. kd4 06:48 Patient has correct armband on for positive identification. Bed in low position. Call kd4 light in reach. Client placed on continuous cardiac and pulse oximetry monitoring. NIBP monitoring applied. Pulse ox on. NIBP on. 06:48 Initial lab(s) drawn, by me, sent to lab. Inserted saline lock: 20 gauge in right kd4 forearm, using aseptic technique. 07:00 Provided Education on: ER procedures and process. ll1 07:04 Attending Physician role handed off by Sherwin Jackson MD sp3 07:04 Yoli Leiva MD is Attending Physician. sp3 07:10 CT Abd/Pelvis - Without Contrast In Process Unspecified. EDMS 08:05 No provider procedures requiring assistance completed. IV discontinued, intact, ll1 bleeding controlled, No redness/swelling at site. Pressure dressing applied. Administered Medications: 06:59 Drug: TORadol - Ketorolac IVP 30 mg IVP once Route: IVP; Site: right forearm; kd4 08:19 Follow up: Response: No adverse reaction; Pain is decreased ll1 06:59 Drug: Ondansetron IVP 8 mg IVP once; over 2 minutes Route: IVP; Site: right forearm; kd4 08:19 Follow up: Response: No adverse reaction; Nausea is decreased ll1 06:59 Drug: morphine IVP or IV 4 mg IVP once over 4 mins Route: IVP; Infused Over: 4 mins; kd4 Site: right forearm; 08:19 Follow up: Response: No adverse reaction; Pain is decreased; RASS: Alert and Calm (0) ll1 06:59 Drug: NS 0.9% IV 1000 ml IV at 1 bolus Per protocol; to be given as a bolus over 60 kd4 minutes Route: IV; Rate: 1 bolus; Site: right forearm; 08:00 Follow up: Response: No adverse reaction; IV Status: Completed infusion; IV Intake: ll1 950ml Medication: 06:48 VIS not applicable for this client. kd4 Intake: 08:00 IV: 950ml; Total: 950ml. ll1 Outcome: 07:54 Discharge ordered by . sp3 08:05 Patient left the ED. ll1 08:05 Discharged to home ambulatory, ll1 08:05 Condition: stable 08:05 Discharge instructions given to patient, Instructed on discharge instructions, follow up and referral plans. medication usage, Demonstrated understanding of instructions, follow-up care, medications, Prescriptions given X 2, Signatures: Dispatcher [employer] EDTX Wanda Del Valle RN RN ll1 Yoli Leiva MD MD sp3 Bang Vasquez RN RN jj7 Sherwin Jackson MD MD sp4 Ericka Barragan gm2 Barney Mack RN RN kd4
--- NOTE | 2025-03-26 07:54 | EDPHYS ---
Physician Documentation [facility] Name: Tim Burgos Age: 44 yrs Sex: Male : 1980 Arrival Date: 03/26/2025 Time: 06:01 Bed 13 Private MD: ED Physician Yoli Leiva HPI: 03/26 06:10 This 44 yrs old Other Race Male presents to ER via Unassigned with complaints of Low sp4 Back Pain, Abdominal Pain, Possible Kidney Stone. 06:59 44-year-old male presents with acute onset right flank pain similar to prior kidney sp4 stone. Associated nausea.. Historical: - Allergies: 06:31 Tramadol HCl (Upset stomach); jj7 - PMHx: 06:31 diabetes mellitus; Hypercholesterolemia; Hypertensive disorder; Kidney stones; jj7 - PSHx: 06:31 Kidney stent and removal; jj7 - Immunization history:: Adult Immunizations not up to date. - Infectious Disease History:: Denies. - Social history:: Smoking status: Patient denies any tobacco usage or history of. Patient/guardian denies using alcohol, street drugs, IV drugs. - Family history:: not pertinent. ROS: 06:59 Constitutional: Negative for fever, chills, and weight loss, positive acute right flank sp4 pain positive nausea 06:59 All other systems are negative, Exam: 06:59 Constitutional: This is a well developed, well nourished patient who is awake, alert, sp4 and in no acute distress. Head/Face: Normocephalic, atraumatic. Eyes: Pupils equal round and reactive to light, extra-ocular motions intact. Lids and lashes normal. Conjunctiva and sclera are not injected. Cornea within normal limits. Periorbital areas with no swelling, redness, or edema. ENT: Nares patent. No nasal discharge, no septal abnormalities noted. Tympanic membranes are normal and external auditory canals are clear. Oropharynx with no redness, swelling, or masses, exudates, or evidence of obstruction, uvula midline. Mucous membranes moist. Neck: Trachea midline, no thyromegaly or masses palpated, and no cervical lymphadenopathy. Supple, full range of motion without nuchal rigidity, or vertebral point tenderness. Chest/axilla: Normal chest wall appearance and motion. Nontender with no deformity. No lesions are appreciated. Cardiovascular: Regular rate and rhythm with a normal S1 and S2. No gallops, murmurs, or rubs. No pulse deficits. Respiratory: Lungs have equal breath sounds bilaterally, clear to auscultation and percussion. No rales, rhonchi or wheezes noted. No increased work of breathing, no retractions or nasal flaring. Abdomen/GI: Soft, with normal bowel sounds. No distension or tympany. No guarding or rebound. No evidence of tenderness throughout. Back: No spinal tenderness. No costovertebral tenderness. Skin: Warm, dry with normal turgor. Normal color with no rashes, no lesions, and no evidence of cellulitis. MS/ Extremity: Pulses equal, no cyanosis. Neurovascular intact. Full, normal range of motion. Neuro: Awake and alert, GCS 15, oriented to person, place, time, and situation. Cranial nerves II-XII grossly intact. Motor strength 5/5 in all extremities. Sensory grossly intact. Psych: Awake, alert, with orientation to person, place and time. Behavior, mood, and affect are within normal limits Vital Signs: 06:15 BP 131 / 95; Pulse 103; Resp 20; Temp 98.2; Pulse Ox 100% ; Weight 66.22 kg; Height 5 jj7 ft. 2 in. ; Pain 7/10; 08:00 BP 132 / 100; Pulse 100; Resp 17; Pulse Ox 100% on R/A; ll1 06:15 Body Mass Index 26.70 (66.22 kg, 157.48 cm) [facility] 06:15 Pain Scale: Adult [facility] [place] Coma Score: 06:48 Eye Response: spontaneous(4). Verbal Response: oriented(5). Motor Response: obeys kd4 commands(6). Total: 15. 06:59 Eye Response: spontaneous(4). Verbal Response: oriented(5). Motor Response: obeys sp4 commands(6). Total: 15. MDM: 07:01 Differential diagnosis: arthritis, strain, fracture, sciatica, contusion, Herniated sp4 disc UTI. Data reviewed: vital signs, nurses notes, lab test result(s), radiologic studies, CT scan. Consideration of Admission/Observation Escalation of care including admission/observation considered. Transition of care: After a detail discussion of the patient's case, care is transferred to Yoli Leiva MD. 07:04 Medical Screening Exam initiated sp3 07:52 ED course: Patient signed out to me by nighttime physician. 44-year-old male with right sp3 flank pain. Full workup negative including CT scan of the abdomen pelvis, labs and UA. On my clinical exam, patient has pain on palpation of the musculature in the right lower back area. He is resting comfortably and vital signs are normal with heart rate in the upper 80s. We will safely discharge patient home on Flexeril and diclofenac. Patient has a ride home. Patient states he had lumbar injections performed 2 weeks ago, however his current symptoms appear to be more superficial in the musculature.. 03/26 06:12 Order name: CBC with Diff; Complete Time: 07:02 sp4 03/26 06:12 Order name: CMP; Complete Time: 07:17 sp4 03/26 06:12 Order name: Lipase; Complete Time: 07:17 sp4 03/26 07:11 Order name: UA Rfx Juan Cult if indicated; Complete Time: 07:31 sp3 03/26 06:12 Order name: CT Abd/Pelvis - Without Contrast; Complete Time: 07:49 sp4 03/26 06:12 Order name: IV Saline Lock; Complete Time: 07:02 sp4 03/26 06:12 Order name: Labs collected and sent; Complete Time: 07:02 sp4 Administered Medications: 06:59 Drug: TORadol - Ketorolac IVP 30 mg IVP once Route: IVP; Site: right forearm; kd4 08:19 Follow up: Response: No adverse reaction; Pain is decreased ll1 06:59 Drug: Ondansetron IVP 8 mg IVP once; over 2 minutes Route: IVP; Site: right forearm; kd4 08:19 Follow up: Response: No adverse reaction; Nausea is decreased ll1 06:59 Drug: morphine IVP or IV 4 mg IVP once over 4 mins Route: IVP; Infused Over: 4 mins; kd4 Site: right forearm; 08:19 Follow up: Response: No adverse reaction; Pain is decreased; RASS: Alert and Calm (0) ll1 06:59 Drug: NS 0.9% IV 1000 ml IV at 1 bolus Per protocol; to be given as a bolus over 60 kd4 minutes Route: IV; Rate: 1 bolus; Site: right forearm; 08:00 Follow up: Response: No adverse reaction; IV Status: Completed infusion; IV Intake: ll1 950ml Disposition Summary: 03/26/25 07:54 Discharge Ordered Notes: Location: Home sp3 Condition: Stable sp3 Diagnosis - Lumbar muscle strain, right flank pain sp3 Followup: sp3 - With: Private Physician - When: Upon discharge from the Emergency Department - Reason: Recheck today's complaints, Continuance of care Discharge Instructions: - Discharge Summary Sheet ll1 - Muscle Strain sp3 Forms: - Work release form ll1 - Medication Reconciliation Form sp3 - Antibiotic Education sp3 - Prescription Opioid Use sp3 - Patient Portal Instructions sp3 - Leadership Thank You Letter sp3 Prescriptions: - Cyclobenzaprine 10 mg Oral Tablet - take 1 tablet ORAL route every 8 hours As needed; 30 tablet; Refills: 0, sp3 Product Selection Permitted - Diclofenac Sodium 75 mg Oral Tablet Sustained Release - take 1 tablet ORAL route 2 times per day; 30 tablet; Refills: 0, Product sp3 Selection Permitted Signatures: Dispatcher [employer] Yoli Lovelace MD MD sp3 Bang Vasquez RN RN jj7 Sherwin Jackson MD MD sp4 Barney Mack RN RN kd4 Wanda Del Valle RN ll1 Corrections: (The following items were deleted from the chart) 07:11 07:11 UA Rfx Juan Cult if indicated+[id number] ordered. EDMS EDMS
[2025-03-26 08:16] VITALS: BP 131/95; TEMP 98.2; O2SAT 100
== END 2025-03-26 08:05 | disposition home or self-care (01) ==
LOC: ER 06:01
DX: S39.012A Strain of muscle, fascia and tendon of lower back, initial encounter (principal); R10.A1 Flank pain, right side
CPT/HCPCS: 96361; 85025; 36415; 81003; 83690; 80053; 74176; 96375; 96374; 99284; J1885; J2270; J2405 ×2; J7030